=== PATIENT | female | born 1945 | race Caucasian/White ===

== ENCOUNTER 2016-10-06 22:48 | Inpatient (IN) | payer SELFPAY, MEDICAID ==
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
[2016-10-06] MEDS ORDERED: Sodium Chloride 0.9% 1,000 ML IV STA (23:23)
[2016-10-06] MEDS ORDERED: Morphine 2 mg/ml ISec IVP STA (23:23)
[2016-10-06 23:39] LABS: HEMOGLOBIN 11.9 g/dL (12.0-16.0); MEAN CELL VOLUME 78.1 fl (80.0-105.0); MEAN CORPUSCULAR HEMOGLOBIN 25.5 pg (25.0-35.0); MEAN CORPUSCULAR HGB CONC 32.7 g/dl (31.0-37.0); MEAN PLATELET VOLUME 10.9 fl (7.0-11.0); RBC 4.66 10^6/uL (3.5-6.1); RED CELL DISTRIBUTION WIDTH 16.1 % (11.5-14.5); WHITE BLOOD COUNT 11.6 10^3/ul (4.5-11.0)
[2016-10-06 23:52] LABS: ALB/GLOB RATIO 1.3 (1.1-1.8); ALBUMIN 4.9 g/dL (3.0-4.8); ALT/SGPT 574 U/L (7-56); BLOOD UREA NITROGEN 20 mg/dL (7-21); CALCIUM 9.4 mg/dL (8.4-10.5); GFR AFRICAN-AMERICAN > 60; GFR NON-AFRICAN AMERICAN > 60; LIPASE 131 U/L (23-300)
[2016-10-07] LABS: VENOUS BLOOD GAS BASE EXCESS 1.9 mmol/L (0.0-2.0); VENOUS BLOOD GAS PO2 225 mm/Hg (30-55); VENOUS BLOOD PH 7.42 (7.32-7.43)
[2016-10-07 00:02] LABS: AST/SGOT 1083 U/L (15-39)
[2016-10-07 00:10] LABS: PARTIAL THROMBOPLASTIN TIME 25.5 Seconds (23.7-30.8); PROTHROMBIN TIME 10.8 Seconds (9.9-11.8)
[2016-10-07] MEDS ORDERED: cefTRIAXone 1 gm 1 GM/100 ML BAG IV STA (01:39)
[2016-10-07] MEDS ORDERED: metroNIDAZOLE IV 500 mg/100 ml 500 MG/100 ML BAG IVPB STA (01:40)
--- NOTE | 2016-10-07 01:41 | US ---
EXAM: US Abdomen Complete CLINICAL HISTORY: 71 years old, female; Pain; Abdominal pain; Generalized TECHNIQUE: Real-time ultrasound of the abdomen (complete) with image documentation. COMPARISON: CT - ABD PELVIS IV CONTRAST ONLY 04/13/2016 5:39:43 PM FINDINGS: Liver: The liver is increased echogenicity in size measuring 19 cm in longitudinal dimension. No intrahepatic bile duct dilation. Gallbladder: A single large stone is identified within the gallbladder, which is otherwise unremarkable. Common bile duct: The common bile duct is dilated, measuring 1.6 mm. Pancreas: Visualization of the pancreas is limited by overlying bowel gas. Right kidney: Unremarkable in echogenicity and size measuring 10.5 x 4.1 x 5.8 cm. No hydronephrosis. Left Kidney: Unremarkable in size measuring 10.6 x 5.8 x 5.8 cm. No hydronephrosis. A single subcentimeter nonobstructing stone is identified within the lower pole measuring 7 mm. Spleen: Unremarkable in echogenicity and size, measuring 8.7 x 4.7 x 3.8 cm. Aorta: The visualized portion of the abdominal aorta is non-aneurysmal. Inferior vena cava: patent. IMPRESSION: Cholelithiasis. Common bile duct dilatation. Fatty infiltration of an enlarged liver. Nonobstructing subcentimeter stone within the left kidney. Limited evaluation of the pancreas, secondary to overlying bowel gas. Otherwise, unremarkable sonographic evaluation of the abdomen, as detailed above.
--- NOTE | 2016-10-07 02:00 | CT ---
EXAM: CT Abdomen and Pelvis Without Intravenous Contrast CLINICAL HISTORY: 71 years old, female; Pain; Abdominal pain; Generalized TECHNIQUE: Axial computed tomography images of the abdomen and pelvis without intravenous contrast. All CT scans at this facility use one or more dose reduction techniques, viz.: automated exposure control; ma/kV adjustment per patient size (including targeted exams where dose is matched to indication; i.e. head); or iterative reconstruction technique. Coronal and sagittal reformatted images were created and reviewed. COMPARISON: CT - ABD PELVIS IV CONTRAST ONLY 04/13/2016 5:39:43 PM FINDINGS: Lower thorax: The bilateral lung bases are clear. ABDOMEN: Liver: The liver is enlarged, and demonstrates a steatosis. Gallbladder and bile ducts: The gallbladder is mildly distended, without calcified stones. No intrahepatic biliary ductal dilation. Pancreas: Limited evaluation secondary to the lack of intravenous contrast. Spleen: No acute findings. Adrenals: No acute findings. Kidneys and ureters: No obstructing stones. No hydronephrosis. PELVIS: Bladder: No acute findings. Reproductive: No acute findings. Appendix: The appendix is of normal-caliber (series 2, image 113; series 601, image 60). ABDOMEN and PELVIS: Stomach and bowel: No acute findings. A right inguinal fat (and likely omental) containing hernia is detected. Peritoneum: No acute findings. Lymph nodes: Limited evaluation without intravenous contrast. Vasculature: No aortic aneurysm. Bones: No acute fracture. IMPRESSION: A fat and likely omental containing right inguinal hernia is identified, increased in size from previous examination. Nonobstructing left renal calculus. Fatty infiltration of an enlarged liver.
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
[2016-10-07 05:07] LABS: URINE BILIRUBIN NEGATIVE (NEGATIVE); URINE BLOOD SMALL (NEGATIVE); URINE GLUCOSE (UA) NEGATIVE (NEGATIVE); URINE LEUKOCYTE ESTERASE NEGATIVE Leu/uL (NEGATIVE); URINE NITRATE NEGATIVE (NEGATIVE); URINE PROTEIN 100 mg/dL (<30 mg/dL); URINE UROBILINOGEN 0.2 E.U./dL (<1 E.U./dL)
[2016-10-07 05:10] LABS: URINE COLOR YELLOW (YELLOW)
[2016-10-07 05:11] LABS: URINE APPEARANCE SL CLOUDY (CLEAR)
[2016-10-07] MEDS ORDERED: Morphine 2 mg/ml ISec IVP PRN ×2 (05:13→19:20)
[2016-10-07] MEDS ORDERED: Sodium Chloride 0.9% 1,000 ML IV SCH ×3 (05:15→17:30)
[2016-10-07 05:17] LABS: URINE EPITHELIAL CELLS 0 - 2 /hpf (0-5); URINE WBC 0 - 2 /hpf (0-6)
[2016-10-07 05:18] LABS: URINE BACTERIA RARE (NEG)
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
[2016-10-07 05:36] VITALS: BMI 29.9
[2016-10-07] MEDS: Levothyroxine 150 MCG TAB PO SCH (06:47)
[2016-10-07] MEDS ORDERED: HYDROmorphone 1 mg/ml ISec IVP PRN (09:58)
[2016-10-07] MEDS ORDERED: Cefepime (Maxipime) 1 g Inj IVPB SCH (10:00)
[2016-10-07] MEDS: Cefepime IV 2 gm in NS 2 GM/100 ML BAG IVPB SCH ×2 (10:53→21:03)
[2016-10-07] MEDS ORDERED: metroNIDAZOLE IV 500 mg/100 ml 500 MG/100 ML BAG IVPB SCH (11:00)
[2016-10-07 11:35] LABS: ALB/GLOB RATIO 1.2 (1.1-1.8); ALBUMIN 3.9 g/dL (3.0-4.8); ALT/SGPT 504 U/L (7-56); AST/SGOT 592 U/L (15-39); BILIRUBIN,DIRECT 3.8 mg/dL (0.0-0.4); BLOOD UREA NITROGEN 20 mg/dL (7-21); GFR AFRICAN-AMERICAN > 60; GFR NON-AFRICAN AMERICAN > 60
--- NOTE | 2016-10-07 11:56 | RAD ---
HISTORY: Sepsis Patient COMPARISON: 04/13/2016 FINDINGS: LUNGS: No active pulmonary disease. PLEURA: No significant pleural effusion identified, no pneumothorax apparent. CARDIOVASCULAR: Cardiomegaly, pulmonary vascular congestion. OSSEOUS STRUCTURES: No significant abnormalities. VISUALIZED UPPER ABDOMEN: Normal. OTHER FINDINGS: None. IMPRESSION: No active pulmonary disease.
[2016-10-07 12:02] LABS: BASO # 0.02 K/mm3 (0.0-2.0); BASO % 0.2 % (0.0-3.0); EOS % 0.2 % (1.5-5.0); GRAN # 11.44 (1.4-6.5); GRAN % 86.6 % (50.0-68.0); HEMOGLOBIN 11.5 g/dL (12.0-16.0); LYMPH # 0.8 (1.2-3.4); LYMPH % 5.9 % (22.0-35.0); MEAN CELL VOLUME 76.7 fl (80.0-105.0); MEAN CORPUSCULAR HEMOGLOBIN 25.1 pg (25.0-35.0); MEAN CORPUSCULAR HGB CONC 32.7 g/dl (31.0-37.0); MEAN PLATELET VOLUME 11.1 fl (7.0-11.0); MONO # 0.9 (0.1-0.6); MONO % 7.1 % (1.0-6.0); PLATELET COUNT 250 10^3/uL (120.0-450.0); RBC 4.59 10^6/uL (3.5-6.1); RED CELL DISTRIBUTION WIDTH 15.9 % (11.5-14.5); WHITE BLOOD COUNT 13.2 10^3/ul (4.5-11.0)
--- NOTE | 2016-10-07 12:53 | US ---
PROCEDURE: Right lower extremity venous US HISTORY: Leg pain and swelling. Evaluate for DVT. PHYSICIAN(S): Chino Pool M.D. TECHNIQUE: Duplex sonography and color-flow Doppler with graded compression were used to evaluate the deep venous system of the right lower extremity. The tibial veins are not well seen. FINDINGS: The visualized deep venous system of the right lower extremity is sonographically normal and compressible. Normal waveforms and augmentation are seen. There is no sonographic evidence for deep venous thrombosis in the visualized segments of the right lower extremity. IMPRESSION: 1. No sonographic evidence for deep venous thrombosis in the visualized segments of the right lower extremity.
--- NOTE | 2016-10-07 13:54 | CARD ---
APPROVED REPORT EKG Measurement Heart [id number] <Conclusion> Normal sinus rhythm Incomplete right bundle branch block Voltage criteria for left ventricular hypertrophy Nonspecific T wave abnormality Abnormal ECG
[2016-10-07] MEDS ORDERED: Sodium Chloride 0.9% 500 ML IV STA ×3 (15:55→17:16)
[2016-10-07] MEDS ORDERED: Iohexol 240 (50 ml) ONE (16:57)
[2016-10-07] MEDS ORDERED: Indomethacin 50 MG Suppository PR ONE (16:58)
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
[2016-10-07] MEDS ORDERED: Sodium Chloride 0.9% 1,000 ML IV STA (17:04)
[2016-10-07] MEDS ORDERED: Propofol 10 mg/ml Inj (20 ML) ONE (17:21)
[2016-10-07] MEDS ORDERED: Midazolam 2 MG/2 ML VIAL ONE (17:27)
[2016-10-07] MEDS ORDERED: Rocuronium 10 mg/ml (5 ml) ONE (17:30)
[2016-10-07] MEDS ORDERED: Vancomycin 1.5 GM in Sodium Chloride 0.9% 500 ML IVPB ONE (17:57)
[2016-10-07] MEDS ORDERED: Phenylephrine 10 mg/ml Inj ONE (18:01)
[2016-10-07] MEDS ORDERED: Glycopyrrolate 0.2 mg/ml (2ml vial) ONE (18:02)
[2016-10-07] MEDS ORDERED: Neostigmine Methylsulfate 3mg/3ml Syringe IV ONE (18:02)
[2016-10-07] MEDS ORDERED: Glucagon Recombinant 1 mg Inj ONE (18:09)
[2016-10-07] MEDS: Piperacillin/Tazobact 3.375 gm 100 ML IVPB SCH (18:30)
--- NOTE | 2016-10-07 22:11 | CON ---
DATE: 10/07/2016 REQUESTING PHYSICIAN: Dr. Kelsey. REASON FOR CONSULT/HISTORY OF PRESENT ILLNESS: I have been asked to see this 71-year-old female, who comes to the hospital with a one-day history of abdominal pain, nausea, and vomiting. In the emergency room, the patient had a fever to 103. Routine blood work showed elevated liver enzymes. Ultrasound of the gallbladder showed one large gallstone with a dilated duct measuring 1.[address] scan of the abdomen and pelvis was negative. PAST MEDICAL HISTORY: Notable for hypertension, thyroid cancer, thyroid and parathyroid removal, bradycardia, gallstones. The patient was diagnosed with gallstones over a year ago, but opted not to have surgery at that time. SOCIAL HISTORY: She denies cigarette smoke or alcohol use. PAST SURGICAL HISTORY: Notable for right knee surgery, left knee surgery, back surgery, thyroidectomy, parathyroidectomy, and left ear surgery. FAMILY HISTORY: Noncontributory. REVIEW OF SYSTEMS: A 14-point review of systems is notable for nausea, vomiting, abdominal pain, and fever. PHYSICAL EXAMINATION: GENERAL: Elderly female lying in bed in some distress from right upper quadrant abdominal pain. VITAL SIGNS: Reveal temperature of 99.8, blood pressure 120/95, heart rate of 89. HEENT: Reveal sclerae to be icteric. Conjunctivae pink. NECK: Supple. CHEST: Reveal lungs to be clear. HEART: Exam reveals regular rate and rhythm. ABDOMEN: Soft. She has moderate right upper quadrant tenderness with some voluntary guarding. No rebound. No guarding. EXTREMITIES: Show no edema. LABORATORY DATA: Reveal potassium 3.3, total bilirubin 4.9, AST 592, ALT 504. On admission, her AST was 1083, alkaline phosphatase of 349, total bilirubin of 4.9. IMPRESSION: A 71-year-old female with abdominal pain, gallstones, probable common bile duct stone with fever. The patient may have ascending cholangitis. RECOMMENDATIONS: 1. I will start the patient on Zosyn 3.275 g IV q. 6 hours. 2. We will request for an MRCP. 3. We will ask Dr. López to see the patient for possible ERCP. Christopher Howard MD
[2016-10-08] MEDS: Piperacillin/Tazobact 3.375 gm 100 ML IVPB SCH ×4 (00:46→21:10)
[2016-10-08] MEDS: Levothyroxine 150 MCG TAB PO SCH (05:39)
--- NOTE | 2016-10-08 05:50 | CON ---
CALCINER OPERATOR NOTE DATE: 10/07/2016 REQUESTING PHYSICIAN: Edison Celaya MD CHIEF COMPLAINTS: The patient presents with severe abdominal pain and cholecystitis. HISTORY OF PRESENT ILLNESS: Ms. Real Keyes is a 71-year-old obese female with a history of hypertension, thyroid cancer, status post thyroidectomy and parathyroidectomy, bradycardia, osteoarthritis, hypertension, gall stones and GERD. The patient initially was admitted to the medical floor and then had episodes of severe abdominal pain and hypotension and was transferred to the intensive care unit. IV fluids were given as bolus and BP stabilized. The patient has been evaluated by GI surgery as well as ID and is on antibiotics and pain meds. She is seen and evaluated for ERCP today. The patient is awake and alert, does complain of severe right upper quadrant pain when the pain meds wear off. No present nauseousness or vomiting. No fever or chills. No diarrhea. PAST MEDICAL HISTORY: Is as above. ALLERGIES: SHE HAS NO KNOWN ALLERGIES. CURRENT MEDICATIONS: Her current medications could be evaluated as per the nurse's intake form. FAMILY HISTORY: Noncontributory. SOCIAL HISTORY: No history of smoking or ETOH abuse. REVIEW OF SYSTEMS: CONSTITUTIONAL: All negative. HEENT: All negative. RESPIRATORY: All negative. CARDIOVASCULAR: All negative. GASTROINTESTINAL: Note that the patient has a history of gall stones coming with acute abdominal pain, could be cholangitis or cholelithiasis. : All negative. MUSCULOSKELETAL: All negative. NEUROPSYCHIATRIC: All negative. HEMATOLOGICAL: All negative. IMMUNOLOGIC: All negative. ENDOCRINE: The patient has a history of thyroid cancer and parathyroid as well as thyroidectomy. INTEGRITY: All negative. PHYSICAL EXAMINATION: VITAL SIGNS: Note that her temperature was 98.2, her pulse is 91, respirations are 20, BP is 115/45 and O2 sat is 100% on room air. HEENT: Head is atraumatic and normocephalic. Eyes, reactive to light. Ears, nose, and throat seemed to be within normal limits. NECK: Supple. No JVD. No thyroid enlargement. No lymph nodes. HEART: Has regular rate, and rhythm. Normal S1 and S2. LUNGS: Revealed some mild decreased breath sounds at the bases. ABDOMEN: Obese. Tender to palpation. Decreased bowel sounds. GENITALIA AND RECTAL: Deferred. MUSCULOSKELETAL: No joint deformities. EXTREMITIES: Reveal trace lower extremity edema. NEUROLOGIC: She seemed to be grossly intact. LABORATORY DATA: Her white count is 13.2, hemoglobin is 11.5, hematocrit 35.2 with platelets of 250,000. Venous blood gas reveals a pH of 7.45, PCO2 of 41, PO2 of 225. Sodium is 139, potassium 3.3, chloride 102, CO2 of 23 with a BUN of 20, creatinine of 0.9 and glucose of 115. The patient's direct bilirubin is 3.8, total bilirubin of 4.9 and her AST is 592, ALT is 504 and alkaline phosphatase is 349. Chest x-ray reveals no active pulmonary disease. CT scan of the abdomen reveals a right inguinal hernia, non-obstructing left renal calculus, fatty infiltrates of an enlarged liver. IMPRESSION: This patient has possible cholangitis and cholecystitis. She has possible sepsis with hypotension and possible volume depletion. The patient has a history of parathyroid carcinoma and status post thyroidectomy and parathyroidectomy, osteoarthritis, hypertension, history of gall stones, bradycardia and is known to have gastroesophageal reflux disease. PLAN: We will continue with pain meds. The patient is getting an emergency endoscopic retrograde cholangiopancreatography. We will continue with her BP meds. We will monitor blood pressure closely and hold if hypotensive. The patient will continue with the metronidazole, her cefepime and will continue with her Synthroid. We will continue with IV fluids.. We will follow closely in the intensive care unit monitoring her vitals and will continue to treat aggressively along with the other consultants and the primary care doctor. Hill Odell MD
[2016-10-08 06:04] LABS: BASO # 0.01 K/mm3 (0.0-2.0); BASO % 0.1 % (0.0-3.0); EOS % 0.1 % (1.5-5.0); GRAN # 12.19 (1.4-6.5); GRAN % 84.4 % (50.0-68.0); LYMPH % 7.1 % (22.0-35.0); MEAN CORPUSCULAR HEMOGLOBIN 25.1 pg (25.0-35.0); MEAN CORPUSCULAR HGB CONC 32.1 g/dl (31.0-37.0); MEAN PLATELET VOLUME 10.9 fl (7.0-11.0); MONO # 1.2 (0.1-0.6); MONO % 8.3 % (1.0-6.0); PLATELET COUNT 187 10^3/uL (120.0-450.0); RBC 3.59 10^6/uL (3.5-6.1); RED CELL DISTRIBUTION WIDTH 16.5 % (11.5-14.5); WHITE BLOOD COUNT 14.4 10^3/ul (4.5-11.0)
[2016-10-08] MEDS ORDERED: Morphine 4 mg/ml ISec IVP PRN (06:22)
[2016-10-08] MEDS ORDERED: Morphine 2 mg/ml ISec IVP PRN (06:22)
[2016-10-08 07:37] LABS: ALB/GLOB RATIO 1.1 (1.1-1.8); ALBUMIN 3.2 g/dL (3.0-4.8)
--- NOTE | 2016-10-08 07:37 | CP.PCM.PN ---
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 Admits to ongoing upper abdominal pain. Nursing denies acute events overnight. Limited 12-point review of systems due to hearing impairment. Objective - Vital Signs/Intake and Output Vital Signs (last 24 hours): Temp Pulse Resp BP Pulse Ox 98.2 F 84 14 112/58 L 97 10/07/16 16:07 10/08/16 05:10 10/08/16 05:10 10/08/16 02:00 10/08/16 05:10 Intake and Output: 10/08/16 10/08/16 06:59 18:59 Intake Total 2200 Balance 2200 - Medications Medications: Current Medications Docusate Sodium (Colace) 100 mg PO DAILY [facility] Last Admin: 10/07/16 10:54 Dose: 100 mg Furosemide (Lasix) 40 mg PO DAILY [facility] Last Admin: 10/07/16 10:55 Dose: 40 mg Gabapentin (Neurontin) 100 mg PO HS NORM PRN Reason: Protocol Last Admin: 10/07/16 21:14 Dose: Not Given Heparin Sodium (Porcine) (Heparin) 5,000 units SC Q12 NORM PRN Reason: Protocol Last Admin: 10/07/16 21:46 Dose: 5,000 units Hydralazine HCl (Apresoline) 25 mg PO TID [facility] Last Admin: 10/07/16 17:27 Dose: Not Given Cefepime HCl (Maxipime 2gm) 2 gm in 100 mls @ 100 mls/hr IVPB Q12 NORM Stop: 10/12/16 10:01 Last Admin: 10/07/16 21:03 Dose: 100 mls/hr Piperacillin Sod/Tazobactam Sod (Zosyn 3.375 In Ns 100ml) 100 mls @ 200 mls/hr IVPB Q6 NORM PRN Reason: Protocol Stop: 10/14/16 18:01 Last Admin: 10/08/16 05:36 Dose: 200 mls/hr Sodium Chloride (Sodium Chloride 0.9%) 1,000 mls @ 100 mls/hr IV .Q10H [facility] Last Admin: 10/07/16 16:07 Dose: 100 mls/hr Sodium Chloride (Sodium Chloride 0.9%) 1,000 mls @ 100 mls/hr IV .Q10H [facility] Last Admin: 10/07/16 22:40 Dose: 100 mls/hr Acetaminophen (Ofirmev) 1,000 mg in 100 mls @ 400 mls/hr IVPB Q6H PRN PRN Reason: Pain, moderate (4-7) Stop: 10/09/16 19:05 Last Admin: 10/07/16 21:49 Dose: 400 mls/hr Levothyroxine Sodium (Synthroid) 300 mcg PO 0600 [facility] Last Admin: 10/08/16 05:39 Dose: Not Given Lisinopril (Zestril) 10 mg PO DAILY [facility] Last Admin: 10/07/16 10:55 Dose: 10 mg Morphine Sulfate (Morphine) 2 mg IVP Q4H PRN PRN Reason: Pain, moderate (4-7) Morphine Sulfate (Morphine) 4 mg IVP Q4H PRN PRN Reason: Pain, severe (8-10) Ondansetron HCl (Zofran Inj) 4 mg IVP Q6H PRN PRN Reason: Nausea/Vomiting Pantoprazole Sodium (Protonix Inj) 40 mg IVP DAILY [facility] Last Admin: 10/07/16 10:54 Dose: 40 mg - Labs Labs: 10/08/16 05:10 10/07/16 11:10 PT 10.8 Seconds (9.9-11.8) 10/06/16 23:30 INR 1.00 (0.93-1.08) 10/06/16 23:30 APTT 30.1 Seconds (23.7-30.8) 10/08/16 05:10 - Constitutional Appears: Non-toxic, No Acute Distress - Head Exam Head Exam: ATRAUMATIC, NORMOCEPHALIC - Eye Exam Eye Exam: EOMI, PERRL Pupil Exam: PERRL. absent: Miosis, Mydriatic - ENT Exam ENT Exam: Mucous Membranes Moist, Normal Oropharynx - Neck Exam Neck Exam: Full ROM, Normal Inspection - Respiratory Exam Respiratory Exam: Clear to Ausculation Bilateral. absent: Rales, Rhonchi, Wheezes - Cardiovascular Exam Cardiovascular Exam: RRR, +S1, +S2. absent: Gallop, Rubs - GI/Abdominal Exam GI & Abdominal Exam: Soft, Tenderness, Normal Bowel Sounds. absent: Distended, Firm, Guarding, Rigid, Organomegaly, Rebound Additional comments: B/L UQ tenderness to palpation - Extremities Exam Extremities Exam: Normal Inspection, Pedal Edema - Neurological Exam Neurological Exam: Alert, Awake - Psychiatric Exam Psychiatric exam: Normal Affect, Normal Mood - Skin Skin Exam: Dry, Intact, Normal Color, Warm Assessment and Plan - Assessment and Plan (Free Text) Assessment: 71 year old female with history of Hypertension thyroid cancer s/p thyroidectomy /parathyroidectomy with resultant bradycardia on thyroid hormone replacement presenting with abdominal pain, vomiting, and weakness. Active treatment of ascending cholangitis 2/2 cholelithiasis complicated by choledocholithiasis POD1 (10/07/16) emergent ERCP with stone extraction, sphincterotomy, and balloon sweep. Unknown prior endoscopic history. Plan: >continue broad spectrum antibiotics -dual coeerage with cefepime and Zosyn not necessary >blood cultures- no growth to date >monitor LFTs >NPO >surgery managing- follow up recommendations >downtrend of H/H likely hemodilutional, will monitor >supportive care: IVFs, pain control, anti-emetics >will follow clinical course <Aidan Pitt - Last Filed: 10/08/16 09:55> Objective - Vital Signs/Intake and Output Vital Signs (last 24 hours): Temp Pulse Resp BP Pulse Ox 98.2 F 84 14 112/58 L 97 10/07/16 16:07 10/08/16 05:10 10/08/16 05:10 10/08/16 02:00 10/08/16 05:10 Intake and Output: 10/08/16 10/08/16 06:59 18:59 Intake Total 2200 Balance 2200 - Medications Medications: Current Medications Docusate Sodium (Colace) 100 mg PO DAILY [facility] Last Admin: 10/07/16 10:54 Dose: 100 mg Furosemide (Lasix) 40 mg PO DAILY [facility] Last Admin: 10/07/16 10:55 Dose: 40 mg Gabapentin (Neurontin) 100 mg PO HS NORM PRN Reason: Protocol Last Admin: 10/07/16 21:14 Dose: Not Given Heparin Sodium (Porcine) (Heparin) 5,000 units SC Q12 NORM PRN Reason: Protocol Last Admin: 10/07/16 21:46 Dose: 5,000 units Hydralazine HCl (Apresoline) 25 mg PO TID [facility] Last Admin: 10/07/16 17:27 Dose: Not Given Piperacillin Sod/Tazobactam Sod (Zosyn 3.375 In Ns 100ml) 100 mls @ 200 mls/hr IVPB Q6 [facility] PRN Reason: Protocol Stop: 10/14/16 18:01 Last Admin: 10/08/16 05:36 Dose: 200 mls/hr Sodium Chloride (Sodium Chloride 0.9%) 1,000 mls @ 100 mls/hr IV .Q10H [facility] Last Admin: 10/07/16 16:07 Dose: 100 mls/hr Sodium Chloride (Sodium Chloride 0.9%) 1,000 mls @ 100 mls/hr IV .Q10H [facility] Last Admin: 10/07/16 22:40 Dose: 100 mls/hr Acetaminophen (Ofirmev) 1,000 mg in 100 mls @ 400 mls/hr IVPB Q6H PRN PRN Reason: Pain, moderate (4-7) Stop: 10/09/16 19:05 Last Admin: 10/07/16 21:49 Dose: 400 mls/hr Levothyroxine Sodium (Synthroid) 300 mcg PO 0600 [facility] Last Admin: 10/08/16 05:39 Dose: Not Given Lisinopril (Zestril) 10 mg PO DAILY [facility] Last Admin: 10/07/16 10:55 Dose: 10 mg Morphine Sulfate (Morphine) 2 mg IVP Q4H PRN PRN Reason: Pain, moderate (4-7) Morphine Sulfate (Morphine) 4 mg IVP Q4H PRN PRN Reason: Pain, severe (8-10) Ondansetron HCl (Zofran Inj) 4 mg IVP Q6H PRN PRN Reason: Nausea/Vomiting Pantoprazole Sodium (Protonix Inj) 40 mg IVP DAILY [facility] Last Admin: 10/07/16 10:54 Dose: 40 mg - Labs Labs: 10/08/16 05:10 10/08/16 05:10 PT 10.8 Seconds (9.9-11.8) 10/06/16 23:30 INR 1.00 (0.93-1.08) 10/06/16 23:30 APTT 30.1 Seconds (23.7-30.8) 10/08/16 05:10 Attending/Attestation - Attestation I have personally seen and examined this patient.: Yes I have fully participated in the care of the patient.: Yes I have reviewed all pertinent clinical information, including history, physical exam and plan: Yes Notes (Text): 10/08/16 09:51 I have seen and examined patient with GI fellow. No acute events overnight. She still continues to endorse generalized abdominal discomfort, worse in RUQ. There is no reported nausea, vomiting, fever/chills. She remains NPO, s/p ERCP yesterday with stone extraction and sphincterotomy. Review of vitals from today are normal. Obesity HTN History of thyroid cancer Abdominal pain, sepsis - ascending cholangitis s/p ERCP with stone extraction and sphincterotomy. Balloon sweep performed without evidence of additional choledocholithiasis. - NPO - Continue with antibiotic therapy, follow up blood culture results - Pain control - Follow up surgical recommendations regarding timing of cholecystectomy - LFTs trending down, continue to monitor - No further advanced endoscopic intervention planned, will sign off case. Further management as per primary GI physician (Dr. Howard).
[2016-10-08 07:39] LABS: CALCIUM 6.9 mg/dL (8.4-10.5)
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
[2016-10-08] MEDS ORDERED: Sodium Chloride 0.9% 1,000 ML IV STA (10:47)
[2016-10-08] MEDS: Sodium Chloride 0.9% 1,000 ML IV SCH ×2 (12:17→22:24)
--- NOTE | 2016-10-08 12:48 | CP.PCM.PN ---
<Lashon,Pattie - Last Filed: 10/08/16 14:55> Subjective - Date & Time of Evaluation Date of Evaluation: 10/08/16 Time of Evaluation: 12:43 - Subjective Subjective: Progress Note for Dr. Licona Patient is Maltese speaking only. Patient had no urine output overnight. Patient' s BUN/Cr 35/2.3 in the AM. Fluids increased from 75cc/hr to 100cc/hr. Patient UOP after 3 hours is 975cc Urine. Bladder scan unnecessary at this time. Patient 's CMP was ordered to be redrawn for 14:00. Will follow. FENa calculations to follow Urine Electrolyte readings. Patient admits to abdominal pain throughout her whole abdomen with the worst pain in RUQ. Patient did not have her hearing aid on this morning and had recently lost her other hearing aid. Patient placed her one remaining hearing aid in the biohazard bag along with the rest of her jewelry. Daughter was not at bedside today. Objective - Vital Signs/Intake and Output Vital Signs (last 24 hours): Temp Pulse Resp BP Pulse Ox 98.2 F 82 14 130/66 97 10/07/16 16:07 10/08/16 10:05 10/08/16 05:10 10/08/16 10:05 10/08/16 05:10 Intake and Output: 10/08/16 10/08/16 06:59 18:59 Intake Total 2200 Balance 2200 - Medications Medications: Current Medications Calcium/Vitamin D (Oscal-D 250 Mg-125 Units Tab) 1 tab PO DAILY [facility] Docusate Sodium (Colace) 100 mg PO DAILY [facility] Last Admin: 10/08/16 10:05 Dose: 100 mg Furosemide (Lasix) 40 mg PO DAILY [facility] Last Admin: 10/08/16 10:05 Dose: 40 mg Gabapentin (Neurontin) 100 mg PO HS [facility] PRN Reason: Protocol Last Admin: 10/07/16 21:14 Dose: Not Given Heparin Sodium (Porcine) (Heparin) 5,000 units SC Q12 [facility] PRN Reason: Protocol Last Admin: 10/08/16 09:59 Dose: 5,000 units Hydralazine HCl (Apresoline) 25 mg PO TID [facility] Last Admin: 10/08/16 10:18 Dose: Not Given Piperacillin Sod/Tazobactam Sod (Zosyn 3.375 In Ns 100ml) 100 mls @ 200 mls/hr IVPB Q6 [facility] PRN Reason: Protocol Stop: 10/14/16 18:01 Last Admin: 10/08/16 12:19 Dose: 200 mls/hr Acetaminophen (Ofirmev) 1,000 mg in 100 mls @ 400 mls/hr IVPB Q6H PRN PRN Reason: Pain, moderate (4-7) Stop: 10/09/16 19:05 Last Admin: 10/07/16 21:49 Dose: 400 mls/hr Sodium Chloride (Sodium Chloride 0.9%) 1,000 mls @ 150 mls/hr IV .Q6H40M [facility] Last Admin: 10/08/16 12:17 Dose: 150 mls/hr Levothyroxine Sodium (Synthroid) 300 mcg PO 0600 [facility] Last Admin: 10/08/16 05:39 Dose: Not Given Lisinopril (Zestril) 10 mg PO DAILY [facility] Last Admin: 10/08/16 10:05 Dose: 10 mg Morphine Sulfate (Morphine) 2 mg IVP Q4H PRN PRN Reason: Pain, moderate (4-7) Morphine Sulfate (Morphine) 4 mg IVP Q4H PRN PRN Reason: Pain, severe (8-10) Ondansetron HCl (Zofran Inj) 4 mg IVP Q6H PRN PRN Reason: Nausea/Vomiting Pantoprazole Sodium (Protonix Inj) 40 mg IVP DAILY [facility] Last Admin: 10/08/16 09:59 Dose: 40 mg - Labs Labs: 10/08/16 05:10 10/08/16 05:10 PT 10.8 Seconds (9.9-11.8) 10/06/16 23:30 INR 1.00 (0.93-1.08) 10/06/16 23:30 APTT 30.1 Seconds (23.7-30.8) 10/08/16 05:10 - Constitutional Appears: No Acute Distress - Head Exam Head Exam: NORMAL INSPECTION - Eye Exam Eye Exam: EOMI, Normal appearance Pupil Exam: NORMAL ACCOMODATION - ENT Exam ENT Exam: Mucous Membranes Moist - Neck Exam Neck Exam: Full ROM. absent: Tenderness - Respiratory Exam Respiratory Exam: Clear to Ausculation Bilateral, NORMAL BREATHING PATTERN - Cardiovascular Exam Cardiovascular Exam: REGULAR RHYTHM - GI/Abdominal Exam GI & Abdominal Exam: Soft, Normal Bowel Sounds. absent: Tenderness, Organomegaly - Extremities Exam Extremities Exam: Full ROM, Normal Inspection - Neurological Exam Neurological Exam: Alert, Awake, Normal Gait - Skin Skin Exam: Dry, Intact, Normal Color Assessment and Plan - Assessment and Plan (Free Text) Assessment: 71 F ascending cholangitis, choledocholithiasis. PMH HTN, OA, bradycardia, thyroid cancer s/p thyroidectomy/parathyroidectomy. Plan: 1) Abdominal pain with nausea and bilious emesis -cholecystitis vs choledocolithiasis vs cholangitis vs enteritis Diet: NPO -Febrile in ED, Tmax 103.8F, febrile temp persisting despite 1x 650mg PO tylenol , 800mg PO Motrin x1 given in ED -Mild leukocytosis of 11.6 -LFTs elevated; TBili 4.9, AST/ALT 224/288, ALP 216 -Abx coverage with cefepime and flagyl -Pain control with Morphine 2nq4 PRN, Zofran prn for nausea/emesis -Surgery consulted, recs consulting GI for possible ERCP, possible cholecystectomy later -GI consulted, appreciate all recs IVF changed from 75 cc to 100 cc Poor Urine production F/u Bladder scan, if inadequate urine production, boyle insertion. Strict I/Os f/u repeat CMP at 14:00 BUN/Cr 35/2.3 Zosyn administration changed from Q6 to Q8. Ascending cholangitis s/p ERCP day 1 cholecystectomy scheduled for tuesday 10/10 2) Thyroid Ca s/p thyroidectomy -continue synthroid 3) HTN -continue home Lasix, Hydralazine, and Lisinopril Dispo: Med Surg, pending GI input, possible ERCP/possible cholecystectomy FEN: NPO, NS 125cc/hr Access: Peripheral IV Consults: GI, Surgery Ppx: SCDs for DVT, Protonix for GI Patient reviewed and discussed with attending, Dr. Kaminski <Christiana Licona - Last Filed: 10/08/16 17:06> Objective - Vital Signs/Intake and Output Vital Signs (last 24 hours): Temp Pulse Resp BP Pulse Ox 98.2 F 91 H 22 149/78 100 10/07/16 16:07 10/08/16 15:10 10/08/16 15:10 10/08/16 15:00 10/08/16 15:10 Intake and Output: 10/08/16 10/08/16 06:59 18:59 Intake Total 2200 Balance 2200 - Medications Medications: Current Medications Calcium/Vitamin D (Oscal-D 250 Mg-125 Units Tab) 1 tab PO DAILY [facility] Last Admin: 10/08/16 13:19 Dose: Not Given Docusate Sodium (Colace) 100 mg PO DAILY [facility] Last Admin: 10/08/16 10:05 Dose: 100 mg Furosemide (Lasix) 40 mg PO DAILY [facility] Last Admin: 10/08/16 10:05 Dose: 40 mg Gabapentin (Neurontin) 100 mg PO HS [facility] PRN Reason: Protocol Last Admin: 10/07/16 21:14 Dose: Not Given Heparin Sodium (Porcine) (Heparin) 5,000 units SC Q12 [facility] PRN Reason: Protocol Last Admin: 10/08/16 09:59 Dose: 5,000 units Hydralazine HCl (Apresoline) 25 mg PO TID [facility] Last Admin: 10/08/16 13:21 Dose: 25 mg Acetaminophen (Ofirmev) 1,000 mg in 100 mls @ 400 mls/hr IVPB Q6H PRN PRN Reason: Pain, moderate (4-7) Stop: 10/09/16 19:05 Last Admin: 10/07/16 21:49 Dose: 400 mls/hr Sodium Chloride (Sodium Chloride 0.9%) 1,000 mls @ 150 mls/hr IV .Q6H40M [facility] Last Admin: 10/08/16 12:17 Dose: 150 mls/hr Piperacillin Sod/Tazobactam Sod (Zosyn 3.375 In Ns 100ml) 100 mls @ 200 mls/hr IVPB Q8 [facility] PRN Reason: Protocol Stop: 10/15/16 22:01 Levothyroxine Sodium (Synthroid) 300 mcg PO 0600 [facility] Last Admin: 10/08/16 05:39 Dose: Not Given Lisinopril (Zestril) 10 mg PO DAILY [facility] Last Admin: 10/08/16 10:05 Dose: 10 mg Morphine Sulfate (Morphine) 2 mg IVP Q4H PRN PRN Reason: Pain, moderate (4-7) Last Admin: 10/08/16 13:15 Dose: 2 mg Morphine Sulfate (Morphine) 4 mg IVP Q4H PRN PRN Reason: Pain, severe (8-10) Ondansetron HCl (Zofran Inj) 4 mg IVP Q6H PRN PRN Reason: Nausea/Vomiting Pantoprazole Sodium (Protonix Inj) 40 mg IVP DAILY [facility] Last Admin: 10/08/16 09:59 Dose: 40 mg - Labs Labs: 10/08/16 05:10 10/08/16 05:10 PT 10.8 Seconds (9.9-11.8) 10/06/16 23:30 INR 1.00 (0.93-1.08) 10/06/16 23:30 APTT 30.1 Seconds (23.7-30.8) 10/08/16 05:10 Attending/Attestation - Attestation I have personally seen and examined this patient.: Yes I have fully participated in the care of the patient.: Yes I have reviewed all pertinent clinical information, including history, physical exam and plan: Yes Notes (Text): 10/08/16 17:03 attending note; Patient seen and examined with resident. Patient is a 71-year-old Maltese speaking female admitted with abdominal pain. Found to have acute cholangitis. Status post ERCP stone removal with sphincterotomy. LFTs improving. continue IV zosyn. acute renal failure; secondary to episodes of hypotension. IV fluids increased. Urine output should be monitored closely. Repeat labs today. possible lap cholecystectomy on Saturday as per surgery. 10/08/16 17:06
[2016-10-08] MEDS: Calcium-Vit D 250 mg-125 Units Tab UD PO SCH (13:19)
--- NOTE | 2016-10-08 13:20 | CP.PCM.PN ---
Subjective - Date & Time of Evaluation Date of Evaluation: 10/08/16 Time of Evaluation: 07:00 - Subjective Subjective: Patient is a 71 year old female admitted to [facility] ED 10/06/16 found to have acute cholangitis s/p ERCP with stone extraction and sphincterectomy seen and examined at bedside today. Patient was alert awake and oriented x3. Patient admits to abdominal pain which has improved since being admitted. Objective - Vital Signs/Intake and Output Vital Signs (last 24 hours): Temp Pulse Resp BP Pulse Ox 98.2 F 82 14 130/66 97 10/07/16 16:07 10/08/16 10:05 10/08/16 05:10 10/08/16 10:05 10/08/16 05:10 Intake and Output: 10/08/16 10/08/16 06:59 18:59 Intake Total 2200 Balance 2200 - Medications Medications: Current Medications Calcium/Vitamin D (Oscal-D 250 Mg-125 Units Tab) 1 tab PO DAILY [facility] Docusate Sodium (Colace) 100 mg PO DAILY [facility] Last Admin: 10/08/16 10:05 Dose: 100 mg Furosemide (Lasix) 40 mg PO DAILY [facility] Last Admin: 10/08/16 10:05 Dose: 40 mg Gabapentin (Neurontin) 100 mg PO HS [facility] PRN Reason: Protocol Last Admin: 10/07/16 21:14 Dose: Not Given Heparin Sodium (Porcine) (Heparin) 5,000 units SC Q12 [facility] PRN Reason: Protocol Last Admin: 10/08/16 09:59 Dose: 5,000 units Hydralazine HCl (Apresoline) 25 mg PO TID [facility] Last Admin: 10/08/16 10:18 Dose: Not Given Piperacillin Sod/Tazobactam Sod (Zosyn 3.375 In Ns 100ml) 100 mls @ 200 mls/hr IVPB Q6 [facility] PRN Reason: Protocol Stop: 10/14/16 18:01 Last Admin: 10/08/16 12:19 Dose: 200 mls/hr Acetaminophen (Ofirmev) 1,000 mg in 100 mls @ 400 mls/hr IVPB Q6H PRN PRN Reason: Pain, moderate (4-7) Stop: 10/09/16 19:05 Last Admin: 10/07/16 21:49 Dose: 400 mls/hr Sodium Chloride (Sodium Chloride 0.9%) 1,000 mls @ 150 mls/hr IV .Q6H40M [facility] Last Admin: 10/08/16 12:17 Dose: 150 mls/hr Levothyroxine Sodium (Synthroid) 300 mcg PO 0600 [facility] Last Admin: 10/08/16 05:39 Dose: Not Given Lisinopril (Zestril) 10 mg PO DAILY [facility] Last Admin: 10/08/16 10:05 Dose: 10 mg Morphine Sulfate (Morphine) 2 mg IVP Q4H PRN PRN Reason: Pain, moderate (4-7) Morphine Sulfate (Morphine) 4 mg IVP Q4H PRN PRN Reason: Pain, severe (8-10) Ondansetron HCl (Zofran Inj) 4 mg IVP Q6H PRN PRN Reason: Nausea/Vomiting Pantoprazole Sodium (Protonix Inj) 40 mg IVP DAILY [facility] Last Admin: 10/08/16 09:59 Dose: 40 mg - Labs Labs: 10/08/16 05:10 10/08/16 05:10 PT 10.8 Seconds (9.9-11.8) 10/06/16 23:30 INR 1.00 (0.93-1.08) 10/06/16 23:30 APTT 30.1 Seconds (23.7-30.8) 10/08/16 05:10 - Constitutional Appears: Well - Head Exam Head Exam: ATRAUMATIC, NORMAL INSPECTION, NORMOCEPHALIC - ENT Exam ENT Exam: Mucous Membranes Moist, Normal Exam - Respiratory Exam Respiratory Exam: Clear to Ausculation Bilateral, NORMAL BREATHING PATTERN - Cardiovascular Exam Cardiovascular Exam: REGULAR RHYTHM, RRR, +S1, +S2 - GI/Abdominal Exam GI & Abdominal Exam: Tenderness. absent: Firm, Guarding, Rigid - Skin Skin Exam: Normal Color, Warm Assessment and Plan - Assessment and Plan (Free Text) Plan: 1. Patient is a 71 year old female admitted to [facility] ED 10/06/16 found to have acute cholangitis s/p ERCP with stone extraction and sphincterectomy - WBC currently 14.4, ID on board; abx regimen currently includes Zosyn day 2; ID awaiting blood cx - Liver enzymes downtrending; T bili currently 4.9, AST down to 224 from 1083, ALT down to 288 from 574, AP down to 216 from 367 - Will continue to monitor LFTs, Lap cholecystectomy scheduled for Saturday pending continued downtrend of LFTs
--- NOTE | 2016-10-08 14:42 | CP.PCM.PN ---
<Cortez Bergman - Last Filed: 10/08/16 14:38> Subjective - Date & Time of Evaluation Date of Evaluation: 10/08/16 Time of Evaluation: 09:00 - Subjective Subjective: ICU Progress Note Pt was seen and examined at bedside. Pt is Latvian speaking. Pt admitted to abdominal pains exacerbated by palpation, however less so than she experienced yesterday. Pt is s/p ERCP with stone extraction and sphincterectomy. As per nursing staff, pt has not had much urine output overnight. Pt was bolused with IVF and pt had approx 1L uop throughout the day today. Objective - Vital Signs/Intake and Output Vital Signs (last 24 hours): Temp Pulse Resp BP Pulse Ox 98.2 F 80 19 145/80 99 10/07/16 16:07 10/08/16 13:30 10/08/16 13:30 10/08/16 13:21 10/08/16 13:30 Intake and Output: 10/08/16 10/08/16 06:59 18:59 Intake Total 2200 Balance 2200 - Medications Medications: Current Medications Calcium/Vitamin D (Oscal-D 250 Mg-125 Units Tab) 1 tab PO DAILY [facility] Last Admin: 10/08/16 13:19 Dose: Not Given Docusate Sodium (Colace) 100 mg PO DAILY [facility] Last Admin: 10/08/16 10:05 Dose: 100 mg Furosemide (Lasix) 40 mg PO DAILY [facility] Last Admin: 10/08/16 10:05 Dose: 40 mg Gabapentin (Neurontin) 100 mg PO HS [facility] PRN Reason: Protocol Last Admin: 10/07/16 21:14 Dose: Not Given Heparin Sodium (Porcine) (Heparin) 5,000 units SC Q12 [facility] PRN Reason: Protocol Last Admin: 10/08/16 09:59 Dose: 5,000 units Hydralazine HCl (Apresoline) 25 mg PO TID [facility] Last Admin: 10/08/16 13:21 Dose: 25 mg Acetaminophen (Ofirmev) 1,000 mg in 100 mls @ 400 mls/hr IVPB Q6H PRN PRN Reason: Pain, moderate (4-7) Stop: 10/09/16 19:05 Last Admin: 10/07/16 21:49 Dose: 400 mls/hr Sodium Chloride (Sodium Chloride 0.9%) 1,000 mls @ 150 mls/hr IV .Q6H40M [facility] Last Admin: 10/08/16 12:17 Dose: 150 mls/hr Piperacillin Sod/Tazobactam Sod (Zosyn 3.375 In Ns 100ml) 100 mls @ 200 mls/hr IVPB Q8 [facility] PRN Reason: Protocol Stop: 10/15/16 22:01 Levothyroxine Sodium (Synthroid) 300 mcg PO 0600 [facility] Last Admin: 10/08/16 05:39 Dose: Not Given Lisinopril (Zestril) 10 mg PO DAILY [facility] Last Admin: 10/08/16 10:05 Dose: 10 mg Morphine Sulfate (Morphine) 2 mg IVP Q4H PRN PRN Reason: Pain, moderate (4-7) Last Admin: 10/08/16 13:15 Dose: 2 mg Morphine Sulfate (Morphine) 4 mg IVP Q4H PRN PRN Reason: Pain, severe (8-10) Ondansetron HCl (Zofran Inj) 4 mg IVP Q6H PRN PRN Reason: Nausea/Vomiting Pantoprazole Sodium (Protonix Inj) 40 mg IVP DAILY [facility] Last Admin: 10/08/16 09:59 Dose: 40 mg - Labs Labs: 10/08/16 05:10 10/08/16 05:10 PT 10.8 Seconds (9.9-11.8) 10/06/16 23:30 INR 1.00 (0.93-1.08) 10/06/16 23:30 APTT 30.1 Seconds (23.7-30.8) 10/08/16 05:10 - Constitutional Appears: No Acute Distress - Head Exam Head Exam: ATRAUMATIC, NORMAL INSPECTION, NORMOCEPHALIC - Eye Exam Eye Exam: EOMI, Normal appearance, PERRL Pupil Exam: NORMAL ACCOMODATION, PERRL - ENT Exam ENT Exam: Mucous Membranes Moist, Normal Exam - Neck Exam Neck Exam: Full ROM, Normal Inspection. absent: Lymphadenopathy - Respiratory Exam Respiratory Exam: Clear to Ausculation Bilateral, NORMAL BREATHING PATTERN - Cardiovascular Exam Cardiovascular Exam: REGULAR RHYTHM, +S1, +S2. absent: Murmur - GI/Abdominal Exam GI & Abdominal Exam: Soft, Tenderness, Normal Bowel Sounds - Extremities Exam Extremities Exam: Full ROM, Normal Capillary Refill, Normal Inspection. absent : Joint Swelling, Pedal Edema - Neurological Exam Neurological Exam: Alert, Awake, CN II-XII Intact, Normal Gait, Oriented x3 - Psychiatric Exam Psychiatric exam: Normal Affect, Normal Mood - Skin Skin Exam: Dry, Intact, Normal Color, Warm Assessment and Plan - Assessment and Plan (Free Text) Assessment: 71 F admitted to the ICU for sepsis and HD monitoring s/p ERCP with stone extraction and sphincterectomy. Neuro: Stable AAOx3 mentating well moving all extremities Gabapentin, morphine maintain normothermia Pulm: Stable 02 sat >90% on RA Maintain 02 Sat >90% CVS: HD Stable HTN stable Maintain MAP >70 IVF NS @150cc/hr Hydralazine 25mg TID Lisinopril 10mg Daily GI: s/p ERCP with stone extraction and sphincterectomy possible cholecystectomy as per Surgery team NPO GI consulted, Dr. Howard/Rene Surgery, Dr. Pastor Consulted TBili 4.9, transaminitis, ABD US, hep panel Colace, protonix, zosyn Renal: Renal Function worsening overnight, cr 0.9>2.3 minimal urine output overnight, hold lasix Pt bolused with 1L + 150cc/hr NS pt uop improved during the day approx 1L Continue to monitor electrolytes and replete as needed ID: afebrile, leukocytosis s/p ERCP with stone extraction and sphincterectomy POD#1 fu cx, pct zosyn continue to monitor Heme: H&H stable Continue to monitor Endo: Stable, maintain bg 140-180 Seen reviewed and discussed with Attending <Laure HAMMOND,Rachael H - Last Filed: 10/08/16 16:14> Objective - Vital Signs/Intake and Output Vital Signs (last 24 hours): Temp Pulse Resp BP Pulse Ox 98.2 F 91 H 22 149/78 100 10/07/16 16:07 10/08/16 15:10 10/08/16 15:10 10/08/16 15:00 10/08/16 15:10 Intake and Output: 10/08/16 10/08/16 06:59 18:59 Intake Total 2200 Balance 2200 - Medications Medications: Current Medications Calcium/Vitamin D (Oscal-D 250 Mg-125 Units Tab) 1 tab PO DAILY [facility] Last Admin: 10/08/16 13:19 Dose: Not Given Docusate Sodium (Colace) 100 mg PO DAILY [facility] Last Admin: 10/08/16 10:05 Dose: 100 mg Furosemide (Lasix) 40 mg PO DAILY [facility] Last Admin: 10/08/16 10:05 Dose: 40 mg Gabapentin (Neurontin) 100 mg PO HS [facility] PRN Reason: Protocol Last Admin: 10/07/16 21:14 Dose: Not Given Heparin Sodium (Porcine) (Heparin) 5,000 units SC Q12 [facility] PRN Reason: Protocol Last Admin: 10/08/16 09:59 Dose: 5,000 units Hydralazine HCl (Apresoline) 25 mg PO TID [facility] Last Admin: 10/08/16 13:21 Dose: 25 mg Acetaminophen (Ofirmev) 1,000 mg in 100 mls @ 400 mls/hr IVPB Q6H PRN PRN Reason: Pain, moderate (4-7) Stop: 10/09/16 19:05 Last Admin: 10/07/16 21:49 Dose: 400 mls/hr Sodium Chloride (Sodium Chloride 0.9%) 1,000 mls @ 150 mls/hr IV .Q6H40M [facility] Last Admin: 10/08/16 12:17 Dose: 150 mls/hr Piperacillin Sod/Tazobactam Sod (Zosyn 3.375 In Ns 100ml) 100 mls @ 200 mls/hr IVPB Q8 [facility] PRN Reason: Protocol Stop: 10/15/16 22:01 Levothyroxine Sodium (Synthroid) 300 mcg PO 0600 [facility] Last Admin: 10/08/16 05:39 Dose: Not Given Lisinopril (Zestril) 10 mg PO DAILY [facility] Last Admin: 10/08/16 10:05 Dose: 10 mg Morphine Sulfate (Morphine) 2 mg IVP Q4H PRN PRN Reason: Pain, moderate (4-7) Last Admin: 10/08/16 13:15 Dose: 2 mg Morphine Sulfate (Morphine) 4 mg IVP Q4H PRN PRN Reason: Pain, severe (8-10) Ondansetron HCl (Zofran Inj) 4 mg IVP Q6H PRN PRN Reason: Nausea/Vomiting Pantoprazole Sodium (Protonix Inj) 40 mg IVP DAILY [facility] Last Admin: 10/08/16 09:59 Dose: 40 mg - Labs Labs: 10/08/16 05:10 10/08/16 05:10 PT 10.8 Seconds (9.9-11.8) 10/06/16 23:30 INR 1.00 (0.93-1.08) 10/06/16 23:30 APTT 30.1 Seconds (23.7-30.8) 10/08/16 05:10 Attending/Attestation - Attestation I have personally seen and examined this patient.: Yes I have fully participated in the care of the patient.: Yes I have reviewed all pertinent clinical information, including history, physical exam and plan: Yes Notes (Text): 10/08/16 16:10 71 y/o F w/ Acute Cholycystectitisand CD s/p ERCP and Bile duct manipulation On Empiric abx and following up cx. Overnight BP sustained and mental status stable. Noted to have increased Creatnine and low urine output. Normal saline bolus and NS @ 150ml/hr Likely has sylvester from [facility]. Monitor urine output . dvt p cc time 45 min
[2016-10-08 19:26] LABS: ALB/GLOB RATIO 1.2 (1.1-1.8); ALBUMIN 3.9 g/dL (3.0-4.8); CALCIUM 7.2 mg/dL (8.4-10.5)
--- NOTE | 2016-10-08 23:16 | PN ---
DATE: 10/08/2016 SUBJECTIVE: The patient is lying in bed. She appears much more comfortable than yesterday. She underwent an ERCP with sphincterotomy with Dr. López yesterday on an emergent basis for ascending cholangitis. She had a sphincterotomy with stone extraction. Dr. López's efforts are greatly appreciated. The patient continues to have some abdominal pain as per Nursing requiring narcotic pain medications, but overall, her pain is less. OBJECTIVE: VITAL SIGNS: Reveal temperature of 98.2, blood pressure 149/78, heart rate of 91. ABDOMEN: Soft, less tenderness. No guarding. LABORATORY DATA: Reveal white blood cell count of 14.4, hemoglobin 9. Chemistries reveal BUN of 35, creatinine 2.3 this morning. AST is down to 224, ALT is down to 288, alkaline phosphatase is down to 216. Total bilirubin is still elevated at 4.9. IMPRESSION: A 71-year-old female with known gallstones, who has refused cholecystectomy in the past, admitted to the hospital with increasing abdominal pain, fever, elevated white blood cell count secondary to ascending cholangitis and sepsis. Her BUN and creatinine are also elevated, which I believe are related to sepsis. She underwent an emergency endoscopic retrograde cholangiopancreatography with sphincterotomy and stone extraction with Dr. López yesterday. Clinically, she appears to be improved. RECOMMENDATIONS: 1. Continue IV Zosyn 3.375 g q. 6 hours. 2. Continue n.p.o. 3. Follow liver enzymes. 4. Surgical followup for cholecystectomy in the next 7 days. Again, Dr. López's efforts from yesterday are greatly appreciated. Christopher Howard MD
[2016-10-09] MEDS: Sodium Chloride 0.9% 1,000 ML IV SCH (05:38)
[2016-10-09] MEDS: Piperacillin/Tazobact 3.375 gm 100 ML IVPB SCH (05:41)
[2016-10-09] MEDS: Levothyroxine 150 MCG TAB PO SCH (05:41)
[2016-10-09 06:31] LABS: BASO # 0.02 K/mm3 (0.0-2.0); BASO % 0.2 % (0.0-3.0); EOS # 0.2 (0.0-0.7); EOS % 1.7 % (1.5-5.0); GRAN # 6.65 (1.4-6.5); GRAN % 77.6 % (50.0-68.0); HEMOGLOBIN 8.9 g/dL (12.0-16.0); LYMPH # 0.9 (1.2-3.4); LYMPH % 10.1 % (22.0-35.0); MEAN CELL VOLUME 75.5 fl (80.0-105.0); MEAN CORPUSCULAR HEMOGLOBIN 24.8 pg (25.0-35.0); MEAN CORPUSCULAR HGB CONC 32.8 g/dl (31.0-37.0); MONO # 0.9 (0.1-0.6); MONO % 10.4 % (1.0-6.0); PLATELET COUNT 199 10^3/uL (120.0-450.0); RBC 3.59 10^6/uL (3.5-6.1); RED CELL DISTRIBUTION WIDTH 16.4 % (11.5-14.5); WHITE BLOOD COUNT 8.6 10^3/ul (4.5-11.0)
[2016-10-09 06:45] LABS: CALCIUM 7.3 mg/dL (8.4-10.5)
[2016-10-09 06:52] LABS: ALBUMIN 3.4 g/dL (3.0-4.8)
--- NOTE | 2016-10-09 07:54 | CP.PCM.PN ---
Subjective - Date & Time of Evaluation Date of Evaluation: 10/09/16 Time of Evaluation: 07:35 - Subjective Subjective: Patient is a 71 year old female admitted to [facility] [place] ED 10/06/16 found to have acute cholangitis s/p ERCP with stone extraction and sphincterectomy seen and examined at bedside today in no acute distress. Patient is energetic and states that she is ready to go home since her abdominal pain has decreased to a 2/10. Patient denies n/v/d/f. Objective - Vital Signs/Intake and Output Vital Signs (last 24 hours): Temp Pulse Resp BP Pulse Ox 98.1 F 80 22 170/74 H 94 L 10/09/16 06:00 10/09/16 06:00 10/09/16 06:00 10/09/16 06:00 10/09/16 06:00 Intake and Output: 10/09/16 10/09/16 06:59 18:59 Intake Total 1800 Output Total 1900 Balance -100 - Medications Medications: Current Medications Calcium/Vitamin D (Oscal-D 250 Mg-125 Units Tab) 1 tab PO DAILY [facility] Last Admin: 10/08/16 13:19 Dose: Not Given Docusate Sodium (Colace) 100 mg PO DAILY [facility] Last Admin: 10/08/16 10:05 Dose: 100 mg Furosemide (Lasix) 40 mg PO DAILY [facility] Last Admin: 10/08/16 10:05 Dose: 40 mg Gabapentin (Neurontin) 100 mg PO HS NORM PRN Reason: Protocol Last Admin: 10/08/16 21:09 Dose: 100 mg Heparin Sodium (Porcine) (Heparin) 5,000 units SC Q12 NORM PRN Reason: Protocol Last Admin: 10/08/16 21:09 Dose: 5,000 units Hydralazine HCl (Apresoline) 25 mg PO TID [facility] Last Admin: 10/08/16 13:21 Dose: 25 mg Acetaminophen (Ofirmev) 1,000 mg in 100 mls @ 400 mls/hr IVPB Q6H PRN PRN Reason: Pain, moderate (4-7) Stop: 10/09/16 19:05 Last Admin: 10/07/16 21:49 Dose: 400 mls/hr Sodium Chloride (Sodium Chloride 0.9%) 1,000 mls @ 150 mls/hr IV .Q6H40M [facility] Last Admin: 10/09/16 05:38 Dose: 150 mls/hr Piperacillin Sod/Tazobactam Sod (Zosyn 3.375 In Ns 100ml) 100 mls @ 200 mls/hr IVPB Q8 NORM PRN Reason: Protocol Stop: 10/15/16 22:01 Last Admin: 10/09/16 05:41 Dose: 200 mls/hr Potassium Chloride (Potassium Chloride 20 Meq/100 Ml) 20 meq in 100 mls @ 50 mls/hr IVPB Q2H NORM Stop: 10/09/16 11:44 Levothyroxine Sodium (Synthroid) 300 mcg PO 0600 [facility] Last Admin: 10/09/16 05:41 Dose: 300 mcg Lisinopril (Zestril) 10 mg PO DAILY [facility] Last Admin: 10/08/16 10:05 Dose: 10 mg Morphine Sulfate (Morphine) 2 mg IVP Q4H PRN PRN Reason: Pain, moderate (4-7) Last Admin: 10/08/16 13:15 Dose: 2 mg Morphine Sulfate (Morphine) 4 mg IVP Q4H PRN PRN Reason: Pain, severe (8-10) Ondansetron HCl (Zofran Inj) 4 mg IVP Q6H PRN PRN Reason: Nausea/Vomiting Pantoprazole Sodium (Protonix Inj) 40 mg IVP DAILY [facility] Last Admin: 10/08/16 09:59 Dose: 40 mg - Labs Labs: 10/09/16 05:45 10/09/16 05:45 PT 10.8 Seconds (9.9-11.8) 10/06/16 23:30 INR 1.00 (0.93-1.08) 10/06/16 23:30 APTT 30.1 Seconds (23.7-30.8) 10/08/16 05:10 - Constitutional Appears: Well - Head Exam Head Exam: ATRAUMATIC, NORMAL INSPECTION, NORMOCEPHALIC - ENT Exam ENT Exam: Mucous Membranes Moist, Normal Exam - Respiratory Exam Respiratory Exam: Clear to Ausculation Bilateral, NORMAL BREATHING PATTERN - Cardiovascular Exam Cardiovascular Exam: REGULAR RHYTHM, +S1, +S2 - GI/Abdominal Exam GI & Abdominal Exam: Soft, Tenderness - Neurological Exam Neurological Exam: Alert, Awake, Oriented x3 - Skin Skin Exam: Normal Color, Warm Assessment and Plan - Assessment and Plan (Free Text) Plan: 1. Patient is a 71 year old female admitted to [facility] [place] ED 10/06/16 found to have acute cholangitis s/p ERCP with stone extraction and sphincterectomy - WBC currently 8.6 down from 14.4 yesterday. Abx regimen currently includes Zosyn day 3; Blood cx pending - LFTs continue to downtrend. T bilirbin: 3.0, AST: 115, ALT: 214. AP: 247 from 230 yesterday. - Will continue to monitor LFTs - HIDA scan ordered; results pending - Lab choleycystectomy scheduled for 10/10/16 pending HIDA results
[2016-10-09] MEDS ORDERED: Sodium Chloride 0.9% 1,000 ML IV SCH (09:13)
[2016-10-09] MEDS ORDERED: Potassium Chloride 20 mEq ER Tab PO ONE ×3 (09:40→17:15)
--- NOTE | 2016-10-09 09:41 | CP.PCM.PN ---
Subjective - Date & Time of Evaluation Date of Evaluation: 10/09/16 Time of Evaluation: 09:15 - Subjective Subjective: Still with mild Right upper quadrant pain but better, no fevers overnight, no nausea or vomiting. Objective - Vital Signs/Intake and Output Vital Signs (last 24 hours): Temp Pulse Resp BP Pulse Ox 98.1 F 80 22 170/74 H 94 L 10/09/16 06:00 10/09/16 06:00 10/09/16 06:00 10/09/16 06:00 10/09/16 06:00 Intake and Output: 10/08/16 10/09/16 18:59 06:59 Intake Total 2515 1800 Output Total 2175 1900 Balance 340 -100 - Medications Medications: Current Medications Calcium/Vitamin D (Oscal-D 250 Mg-125 Units Tab) 1 tab PO DAILY [facility] Last Admin: 10/08/16 13:19 Dose: Not Given Docusate Sodium (Colace) 100 mg PO DAILY [facility] Last Admin: 10/08/16 10:05 Dose: 100 mg Furosemide (Lasix) 40 mg PO DAILY [facility] Last Admin: 10/08/16 10:05 Dose: 40 mg Gabapentin (Neurontin) 100 mg PO HS [facility] PRN Reason: Protocol Last Admin: 10/08/16 21:09 Dose: 100 mg Heparin Sodium (Porcine) (Heparin) 5,000 units SC Q12 NORM PRN Reason: Protocol Last Admin: 10/08/16 21:09 Dose: 5,000 units Hydralazine HCl (Apresoline) 25 mg PO TID [facility] Last Admin: 10/08/16 13:21 Dose: 25 mg Acetaminophen (Ofirmev) 1,000 mg in 100 mls @ 400 mls/hr IVPB Q6H PRN PRN Reason: Pain, moderate (4-7) Stop: 10/09/16 19:05 Last Admin: 10/07/16 21:49 Dose: 400 mls/hr Sodium Chloride (Sodium Chloride 0.9%) 1,000 mls @ 150 mls/hr IV .Q6H40M [facility] Last Admin: 10/09/16 05:38 Dose: 150 mls/hr Piperacillin Sod/Tazobactam Sod (Zosyn 3.375 In Ns 100ml) 100 mls @ 200 mls/hr IVPB Q8 NORM PRN Reason: Protocol Stop: 10/15/16 22:01 Last Admin: 10/09/16 05:41 Dose: 200 mls/hr Levothyroxine Sodium (Synthroid) 300 mcg PO 0600 [facility] Last Admin: 10/09/16 05:41 Dose: 300 mcg Lisinopril (Zestril) 10 mg PO DAILY [facility] Last Admin: 10/08/16 10:05 Dose: 10 mg Morphine Sulfate (Morphine) 2 mg IVP Q4H PRN PRN Reason: Pain, moderate (4-7) Last Admin: 10/08/16 13:15 Dose: 2 mg Morphine Sulfate (Morphine) 4 mg IVP Q4H PRN PRN Reason: Pain, severe (8-10) Ondansetron HCl (Zofran Inj) 4 mg IVP Q6H PRN PRN Reason: Nausea/Vomiting Pantoprazole Sodium (Protonix Inj) 40 mg IVP DAILY [facility] Last Admin: 10/08/16 09:59 Dose: 40 mg - Labs Labs: 10/09/16 05:45 10/08/16 16:21 PT 10.8 Seconds (9.9-11.8) 10/06/16 23:30 INR 1.00 (0.93-1.08) 10/06/16 23:30 APTT 30.1 Seconds (23.7-30.8) 10/08/16 05:10 - Constitutional Appears: Non-toxic, No Acute Distress - Head Exam Head Exam: NORMAL INSPECTION - ENT Exam ENT Exam: Mucous Membranes Moist - Neck Exam Neck Exam: absent: Meningismus - Respiratory Exam Respiratory Exam: Decreased Breath Sounds - Cardiovascular Exam Cardiovascular Exam: +S1, +S2 - GI/Abdominal Exam GI & Abdominal Exam: Soft. absent: Tenderness Assessment and Plan - Assessment and Plan (Free Text) Plan: Assessment Sepsis due to acute cholangitis S/P ERCP, stone extraction and sphincterotomy POD #2 acute renal failure, etiology to be determined HTN thyroid cancer S/P thyroidectomy and parathyroidectomy obesity with BMI 30 Plan continue Zosyn (day 3 today) and follow up final blood cx and cultures from the ERCP procedure (negative so far) follow up Renal evaluation and recommendations regarding renal failure will continue to monitor clinically
[2016-10-09] MEDS: Calcium-Vit D 250 mg-125 Units Tab UD PO SCH (10:22)
[2016-10-09] MEDS: Sodium Chloride 0.45% 1,000 ML IV SCH (12:00)
[2016-10-09] MEDS: Piperacillin/Tazobact 2.25gm 2.25 GM/100 ML BAG IVPB SCH ×2 (13:00→18:46)
--- NOTE | 2016-10-09 14:00 | CP.PCM.PN ---
<LashonPattie - Last Filed: 10/09/16 14:02> Subjective - Date & Time of Evaluation Date of Evaluation: 10/09/16 Time of Evaluation: 13:58 - Subjective Subjective: Internal Medicine Progress note for Dr. Licona PT S&E at bedside Patient is Bulgarian speaking only. Fluids increased to 125 cc/hr due to continued resolved BUN/Cr elevation 35/2.0. Urine Output 1900cc over 12 hours. Bladder scan unnecessary at this time. FENa calculations to follow Urine Electrolyte readings. Patient admits to abdominal pain throughout her whole abdomen with the worst pain in RUQ. Patient states her pain is 2/10. Patient is eager to have the cholecystectomy. Family does not want surgery due to the fact that patient is leaving for [facility] on 10/16 to get her green card on 10/20. Objective - Vital Signs/Intake and Output Vital Signs (last 24 hours): Temp Pulse Resp BP Pulse Ox 98.1 F 73 23 192/99 H 98 10/09/16 06:00 10/09/16 13:43 10/09/16 11:28 10/09/16 13:43 10/09/16 11:28 Intake and Output: 10/09/16 10/09/16 06:59 18:59 Intake Total 1800 Output Total 1900 Balance -100 - Medications Medications: Current Medications Calcium/Vitamin D (Oscal-D 250 Mg-125 Units Tab) 1 tab PO DAILY [facility] Last Admin: 10/09/16 10:22 Dose: 1 tab Docusate Sodium (Colace) 100 mg PO DAILY [facility] Last Admin: 10/09/16 10:22 Dose: 100 mg Furosemide (Lasix) 40 mg PO DAILY [facility] Last Admin: 10/08/16 10:05 Dose: 40 mg Gabapentin (Neurontin) 100 mg PO HS NORM PRN Reason: Protocol Last Admin: 10/08/16 21:09 Dose: 100 mg Heparin Sodium (Porcine) (Heparin) 5,000 units SC Q12 NORM PRN Reason: Protocol Last Admin: 10/09/16 10:22 Dose: 5,000 units Hydralazine HCl (Apresoline) 50 mg PO TID [facility] Last Admin: 10/09/16 13:43 Dose: 50 mg Acetaminophen (Ofirmev) 1,000 mg in 100 mls @ 400 mls/hr IVPB Q6H PRN PRN Reason: Pain, moderate (4-7) Stop: 10/09/16 19:05 Last Admin: 10/07/16 21:49 Dose: 400 mls/hr Piperacillin Sod/Tazobactam Sod (Zosyn 2.25 Gm In 0.9% 100 Ml) 2.25 gm in 100 mls @ 100 mls/hr IVPB Q6 NORM PRN Reason: Protocol Stop: 10/17/16 12:01 Last Admin: 10/09/16 13:00 Dose: 100 mls/hr Sodium Chloride (Sodium Chloride 0.45%) 1,000 mls @ 125 mls/hr IV .Q8H [facility] Last Admin: 10/09/16 12:00 Dose: 125 mls/hr Levothyroxine Sodium (Synthroid) 300 mcg PO 0600 [facility] Last Admin: 10/09/16 05:41 Dose: 300 mcg Lisinopril (Zestril) 10 mg PO DAILY [facility] Last Admin: 10/08/16 10:05 Dose: 10 mg Morphine Sulfate (Morphine) 2 mg IVP Q4H PRN PRN Reason: Pain, moderate (4-7) Last Admin: 10/08/16 13:15 Dose: 2 mg Morphine Sulfate (Morphine) 4 mg IVP Q4H PRN PRN Reason: Pain, severe (8-10) Ondansetron HCl (Zofran Inj) 4 mg IVP Q6H PRN PRN Reason: Nausea/Vomiting Pantoprazole Sodium (Protonix Inj) 40 mg IVP DAILY [facility] Last Admin: 10/09/16 10:22 Dose: 40 mg - Labs Labs: 10/09/16 05:45 10/09/16 05:45 PT 10.8 Seconds (9.9-11.8) 10/06/16 23:30 INR 1.00 (0.93-1.08) 10/06/16 23:30 APTT 30.1 Seconds (23.7-30.8) 10/08/16 05:10 - Constitutional Appears: Non-toxic, No Acute Distress - Head Exam Head Exam: NORMAL INSPECTION - Eye Exam Eye Exam: EOMI, Normal appearance - ENT Exam ENT Exam: Mucous Membranes Moist - Neck Exam Neck Exam: Full ROM, Normal Inspection - Respiratory Exam Respiratory Exam: Clear to Ausculation Bilateral, NORMAL BREATHING PATTERN. absent: Accessory Muscle Use, Respiratory Distress - Cardiovascular Exam Cardiovascular Exam: REGULAR RHYTHM. absent: Bradycardia, Tachycardia - GI/Abdominal Exam GI & Abdominal Exam: Normal Bowel Sounds. absent: Hyperactive Bowel Sounds, Hypoactive Bowel Sounds - Extremities Exam Extremities Exam: Full ROM. absent: Normal Inspection, Pedal Edema, Tenderness - Neurological Exam Neurological Exam: Alert, Awake, Normal Gait - Psychiatric Exam Psychiatric exam: Normal Affect, Normal Mood. absent: Flat Affect - Skin Skin Exam: Dry, Intact, Normal Color <Rangasamy,Ajantha - Last Filed: 10/10/16 07:45> Objective - Vital Signs/Intake and Output Vital Signs (last 24 hours): Temp Pulse Resp BP Pulse Ox 98.2 F 71 20 163/85 H 98 10/10/16 01:14 10/10/16 01:14 10/10/16 01:14 10/10/16 01:14 10/09/16 11:28 Intake and Output: 10/10/16 10/10/16 06:59 18:59 Intake Total 940 Balance 940 - Medications Medications: Current Medications Calcium/Vitamin D (Oscal-D 250 Mg-125 Units Tab) 1 tab PO DAILY [facility] Last Admin: 10/09/16 10:22 Dose: 1 tab Docusate Sodium (Colace) 100 mg PO DAILY [facility] Last Admin: 10/09/16 10:22 Dose: 100 mg Furosemide (Lasix) 40 mg PO DAILY [facility] Last Admin: 10/08/16 10:05 Dose: 40 mg Gabapentin (Neurontin) 100 mg PO HS [facility] PRN Reason: Protocol Last Admin: 10/09/16 21:38 Dose: 100 mg Heparin Sodium (Porcine) (Heparin) 5,000 units SC Q12 NORM PRN Reason: Protocol Last Admin: 10/09/16 21:38 Dose: 5,000 units Hydralazine HCl (Apresoline) 50 mg PO TID [facility] Last Admin: 10/09/16 18:23 Dose: 50 mg Piperacillin Sod/Tazobactam Sod (Zosyn 2.25 Gm In 0.9% 100 Ml) 2.25 gm in 100 mls @ 100 mls/hr IVPB Q6 NORM PRN Reason: Protocol Stop: 10/17/16 12:01 Last Admin: 10/10/16 05:44 Dose: 100 mls/hr Sodium Chloride (Sodium Chloride 0.45%) 1,000 mls @ 125 mls/hr IV .Q8H [facility] Last Admin: 10/09/16 12:00 Dose: 125 mls/hr Levothyroxine Sodium (Synthroid) 300 mcg PO 0600 [facility] Last Admin: 10/10/16 05:58 Dose: Not Given Lisinopril (Zestril) 10 mg PO DAILY [facility] Last Admin: 10/08/16 10:05 Dose: 10 mg Morphine Sulfate (Morphine) 2 mg IVP Q4H PRN PRN Reason: Pain, moderate (4-7) Last Admin: 10/08/16 13:15 Dose: 2 mg Morphine Sulfate (Morphine) 4 mg IVP Q4H PRN PRN Reason: Pain, severe (8-10) Ondansetron HCl (Zofran Inj) 4 mg IVP Q6H PRN PRN Reason: Nausea/Vomiting Pantoprazole Sodium (Protonix Inj) 40 mg IVP DAILY [facility] Last Admin: 10/09/16 10:22 Dose: 40 mg - Labs Labs: 10/10/16 06:15 10/10/16 06:15 PT 10.7 Seconds (9.9-11.8) 10/10/16 06:15 INR 0.99 (0.93-1.08) 10/10/16 06:15 APTT 25.6 Seconds (23.7-30.8) 10/10/16 06:15 Attending/Attestation - Attestation I have personally seen and examined this patient.: Yes I have fully participated in the care of the patient.: Yes I have reviewed all pertinent clinical information, including history, physical exam and plan: Yes Notes (Text): 10/10/16 07:41 attending note; Patient seen and examined with resident. Patient is a 71-year-old Bulgarian speaking female admitted with abdominal pain. Found to have acute cholangitis. Status post ERCP stone removal with sphincterotomy. LFTs improving. continue IV zosyn. acute renal failure;resolving. secondary to episodes of hypotension. IV fluids increased. Urine output should be monitored closely. possible lap cholecystectomy tomorrow as per surgery. 10/10/16 07:45
--- NOTE | 2016-10-09 14:14 | CP.CCUPN ---
CCU Subjective - Physician Review Events Since Last Encounter (Free Text): 10/09/16 14:10 Maria Isabel cute events overnight. Pain controlled and BP are WNL. CCU Objective - Vital Signs / Intake & Output Vital Signs (Last 4 hours): Vital Signs Pulse Resp BP Pulse Ox 10/09/16 13:43 73 192/99 H 10/09/16 11:28 82 23 191/99 H 98 10/09/16 11:00 77 28 H 183/95 H 95 10/09/16 10:22 74 177/85 H Intake and Output (Last 8hrs): Intake & Output 10/08/16 10/09/16 10/09/16 22:59 06:59 14:59 Intake Total 2515 1800 Output Total 2175 1900 Balance 340 -100 Intake: IV 2485 1700 Left Hand 2050 1700 Right Antecubital 435 0 Oral 30 100 Output: Urine 2175 1900 Urine, Voided 2175 1900 Other: Voiding Method Bedside Commode # Bowel Movements 0 0 - Physical Exam Head: Positive for: Atraumatic, Normocephalic Pupils: Positive for: PERRL Extroacular Muscles: Positive for: EOMI Conjunctiva: Positive for: Normal Mouth: Positive for: Moist Mucous Membranes Neck: Positive for: Normal Range of Motion Respiratory/Chest: Positive for: Clear to Auscultation, Good Air Exchange. Negative for: Respiratory Distress, Accessory Muscle Use Cardiovascular: Positive for: Regular Rate and Rhythm, Normal S1, S2. Negative for: Murmurs Abdomen: Positive for: Tenderness (Diffuse abdominal tenderness), Normal Bowel Sounds. Negative for: Distention, Peritoneal Signs Back: Positive for: Normal Inspection Upper Extremity: Positive for: Normal Inspection. Negative for: Cyanosis, Edema Lower Extremity: Positive for: Normal Inspection. Negative for: Edema Neurological: Positive for: GCS=15, CN II-XII Intact, Speech Normal Skin: Positive for: Warm, Dry, Normal Color. Negative for: Rashes Psychiatric: Positive for: Alert, Oriented x 3, Normal Insight, Normal Concentration - Medications Active Medications: Active Medications Generic Name Dose Route Start Last Admin Trade Name Freq PRN Reason Stop Dose Admin Calcium/Vitamin D 1 tab 10/08/16 12:45 10/09/16 10:22 Oscal-D 250 Mg-125 Units Tab PO 1 tab DAILY [facility] Administration Docusate Sodium 100 mg 10/07/16 10:00 10/09/16 10:22 Colace PO 100 mg DAILY [facility] Administration Furosemide 40 mg 10/07/16 10:00 10/08/16 10:05 Lasix PO 40 mg DAILY [facility] Administration Gabapentin 100 mg 10/07/16 22:00 10/08/16 21:09 Neurontin PO 100 mg HS NORM Administration Protocol Heparin Sodium (Porcine) 5,000 units 10/07/16 10:00 10/09/16 10:22 Heparin SC 5,000 units Q12 NORM Administration Protocol Hydralazine HCl 50 mg 10/09/16 14:00 10/09/16 13:43 Apresoline PO 50 mg TID NORM Administration Acetaminophen 1,000 mg in 100 mls @ 400 mls/hr 10/07/16 19:04 10/07/16 21:49 Ofirmev IVPB 10/09/16 19:05 400 mls/hr Q6H PRN Administration Pain, moderate (4-7) Piperacillin Sod/Tazobactam Sod 2.25 gm in 100 mls @ 100 mls/hr 10/09/16 12: 00 10/09/16 13:00 Zosyn 2.25 Gm In 0.9% 100 Ml IVPB 10/17/16 12:01 100 mls/hr Q6 NORM Administration Protocol Sodium Chloride 1,000 mls @ 125 mls/hr 10/09/16 11:45 10/09/16 12:00 Sodium Chloride 0.45% IV 125 mls/hr .Q8H NORM Administration Levothyroxine Sodium 300 mcg 10/07/16 06:00 10/09/16 05:41 Synthroid PO 300 mcg 0600 NORM Administration Lisinopril 10 mg 10/07/16 10:00 10/08/16 10:05 Zestril PO 10 mg DAILY [facility]ORM Administration Morphine Sulfate 2 mg 10/08/16 06:22 10/08/16 13:15 Morphine IVP 2 mg Q4H PRN Administration Pain, moderate (4-7) Morphine Sulfate 4 mg 10/08/16 06:22 Morphine IVP Q4H PRN Pain, severe (8-10) Ondansetron HCl 4 mg 10/07/16 05:21 Zofran Inj IVP Q6H PRN Nausea/Vomiting Pantoprazole Sodium 40 mg 10/07/16 10:00 10/09/16 10:22 Protonix Inj IVP 40 mg DAILY [facility]ORM Administration - Patient Studies Lab Studies: Microbiology Studies 10/07/16 17:55 MRSA Culture (Admit) - Final Naris MRSA NOT DETECTED Lab Studies 10/09/16 10/09/16 10/08/16 Range/Units 05:45 05:45 16:54 WBC 8.6 D (4.5-11.0) 10^3/ul RBC 3.59 (3.5-6.1) 10^6/uL Hgb 8.9 L (12.0-16.0) g/dL Hct 27.1 L (36.0-48.0) % MCV 75.5 L (80.0-105.0) fl MCH 24.8 L (25.0-35.0) pg MCHC 32.8 (31.0-37.0) g/dl RDW 16.4 H (11.5-14.5) % Plt Count 199 (120.0-450.0) 10^3/uL MPV 11.0 (7.0-11.0) fl Gran % 77.6 H (50.0-68.0) % Lymph % (Auto) 10.1 L (22.0-35.0) % [place] % (Auto) 10.4 H (1.0-6.0) % Eos % (Auto) 1.7 (1.5-5.0) % Baso % (Auto) 0.2 (0.0-3.0) % Gran # 6.65 H (1.4-6.5) Lymph # 0.9 L (1.2-3.4) [place] # 0.9 H (0.1-0.6) Eos # 0.2 (0.0-0.7) Baso # 0.02 (0.0-2.0) K/mm3 Sodium 146 (132-148) mmol/L Potassium 2.8 L* (3.6-5.0) mmol/L Chloride 109 (98-107) mmol/L Carbon Dioxide 21 (21-33) mmol/L Anion Gap 19 (10-20) BUN 35 H (7-21) mg/dL Creatinine 2.0 H (0.5-1.4) mg/dL Est GFR ( Amer) 30 Est GFR (Non-Af Amer) 25 Random Glucose 70 (70-110) mg/dL Calcium 7.3 L (8.4-10.5) mg/dL Total Bilirubin 3.0 H (0.2-1.3) mg/dL AST 115 H (15-39) U/L ALT 214 H (7-56) U/L Alkaline Phosphatase 247 H (38-133) U/L Total Protein 6.7 (5.8-8.3) g/dL Albumin 3.4 (3.0-4.8) g/dL Globulin 3.3 gm/dL Albumin/Globulin Ratio 1.0 L (1.1-1.8) Ur Random Creatinine 102 mg/dL Ur Random Sodium 46 meq/L Ur Random Potassium 50.2 meq/L 10/08/16 Range/Units 16:21 WBC (4.5-11.0) 10^3/ul RBC (3.5-6.1) 10^6/uL Hgb (12.0-16.0) g/dL Hct (36.0-48.0) % MCV (80.0-105.0) fl MCH (25.0-35.0) pg MCHC (31.0-37.0) g/dl RDW (11.5-14.5) % Plt Count (120.0-450.0) 10^3/uL MPV (7.0-11.0) fl Gran % (50.0-68.0) % Lymph % (Auto) (22.0-35.0) % [place] % (Auto) (1.0-6.0) % Eos % (Auto) (1.5-5.0) % Baso % (Auto) (0.0-3.0) % Gran # (1.4-6.5) Lymph # (1.2-3.4) [place] # (0.1-0.6) Eos # (0.0-0.7) Baso # (0.0-2.0) K/mm3 Sodium 143 (132-148) mmol/L Potassium 3.9 (3.6-5.0) mmol/L Chloride 105 (98-107) mmol/L Carbon Dioxide 16 L (21-33) mmol/L Anion Gap 26 H (10-20) BUN 38 H (7-21) mg/dL Creatinine 2.0 H (0.5-1.4) mg/dL Est GFR ( Amer) 30 Est GFR (Non-Af Amer) 25 Random Glucose 79 (70-110) mg/dL Calcium 7.2 L (8.4-10.5) mg/dL Total Bilirubin 5.1 H (0.2-1.3) mg/dL AST 178 H (15-39) U/L ALT 288 H (7-56) U/L Alkaline Phosphatase 230 H (38-133) U/L Total Protein 7.2 (5.8-8.3) g/dL Albumin 3.9 (3.0-4.8) g/dL Globulin 3.3 gm/dL Albumin/Globulin Ratio 1.2 (1.1-1.8) Ur Random Creatinine mg/dL Ur Random Sodium meq/L Ur Random Potassium meq/L Laboratory Results - last 24 hr 10/08/16 10/08/16 10/09/16 16:21 16:54 05:45 WBC 8.6 D RBC 3.59 Hgb 8.9 L Hct 27.1 L MCV 75.5 L MCH 24.8 L MCHC 32.8 RDW 16.4 H Plt Count 199 MPV 11.0 Gran % 77.6 H Lymph % (Auto) 10.1 L [place] % (Auto) 10.4 H Eos % (Auto) 1.7 Baso % (Auto) 0.2 Gran # 6.65 H Lymph # 0.9 L [place] # 0.9 H Eos # 0.2 Baso # 0.02 Sodium 143 Potassium 3.9 Chloride 105 Carbon Dioxide 16 L Anion Gap 26 H BUN 38 H Creatinine 2.0 H Est GFR ( Amer) 30 Est GFR (Non-Af Amer) 25 Random Glucose 79 Calcium 7.2 L Total Bilirubin 5.1 H AST 178 H ALT 288 H Alkaline Phosphatase 230 H Total Protein 7.2 Albumin 3.9 Globulin 3.3 Albumin/Globulin Ratio 1.2 Ur Random Creatinine 102 Ur Random Sodium 46 Ur Random Potassium 50.2 10/09/16 05:45 WBC RBC Hgb Hct MCV MCH MCHC RDW Plt Count MPV Gran % Lymph % (Auto) [place] % (Auto) Eos % (Auto) Baso % (Auto) Gran # Lymph # [place] # Eos # Baso # Sodium 146 Potassium 2.8 L* Chloride 109 Carbon Dioxide 21 Anion Gap 19 BUN 35 H Creatinine 2.0 H Est GFR ( Amer) 30 Est GFR (Non-Af Amer) 25 Random Glucose 70 Calcium 7.3 L Total Bilirubin 3.0 H AST 115 H ALT 214 H Alkaline Phosphatase 247 H Total Protein 6.7 Albumin 3.4 Globulin 3.3 Albumin/Globulin Ratio 1.0 L Ur Random Creatinine Ur Random Sodium Ur Random Potassium Review of Systems - EENT Eyes: UNREMARKABLE Ears: UNREMARKABLE Nose/Mouth/Throat: UNREMARKABLE - Breasts Breasts: UNREMARKABLE - Cardiovascular Cardiovascular: UNREMARKABLE - Respiratory Respiratory: UNREMARKABLE - Gastrointestinal Gastrointestinal: UNREMARKABLE - Musculoskeletal Musculoskeletal: UNREMARKABLE - Integumentary Integumentary: Non-Healing Lesions, UNREMARKABLE - Neurological Neurological: UNREMARKABLE Critical Care Progress Note - Nutrition Nutrition: Nutrition Category Date Time Status Liquid Diet [DIET] Diets 10/09/16 Lunch Ordered Assessment/Plan - Assessment and Plan (Free Text) Assessment: 71 y/o F w/ Acute Cholycystitis s/p ERCP and stone removal . Currently pain controlled and on empiric abx for infection . No signs of septicemia. Plan for Gb removal per surgery during this hospital stay . Pain controlled and diet advanced. Lala , likely from pre renal causes. Continue IV fluids. Med-surg appropriate. cc time 65 min
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
--- NOTE | 2016-10-09 20:00 | PN ---
DATE: 10/09/2016 SUBJECTIVE: The patient is lying in bed comfortable. Her abdominal pain appears to have resolved. There is no nausea or vomiting. OBJECTIVE: VITAL SIGNS: Reveal that she is afebrile. Blood pressure 192/99, heart rate 73. ABDOMEN: Protuberant, soft, nontender. LABORATORY DATA: Reveal white blood cell count down to 8.6, hemoglobin 8.9. Reveal bilirubin down to 3.0, AST down to 115, ALT down to 214, alkaline phosphatase down to 247. All blood cultures remained negative. IMPRESSION: This 71-year-old female with known cholelithiasis, admitted to the hospital with severe right upper quadrant abdominal pain, fever, elevated liver enzymes status post endoscopic retrograde cholangiopancreatography and sphincterotomy with stone extraction for common bile duct stone and ascending cholangitis. The patient developed acute renal insufficiency which appears to be improving. RECOMMENDATIONS: 1. The patient is scheduled to have a cholecystectomy in the morning. 2. I will start the patient on clear liquids. 3. Follow liver enzymes. Christopher Howard MD
[2016-10-10] MEDS: Piperacillin/Tazobact 2.25gm 2.25 GM/100 ML BAG IVPB SCH ×2 (01:18→05:44)
[2016-10-10] MEDS: Levothyroxine 150 MCG TAB PO SCH (05:58)
[2016-10-10 06:28] LABS: BASO # 0.02 K/mm3 (0.0-2.0); BASO % 0.2 % (0.0-3.0); EOS # 0.2 (0.0-0.7); GRAN # 5.19 (1.4-6.5); HEMOGLOBIN 10.3 g/dL (12.0-16.0); LYMPH # 1.8 (1.2-3.4); LYMPH % 21.9 % (22.0-35.0); MEAN CELL VOLUME 75.9 fl (80.0-105.0); MEAN CORPUSCULAR HEMOGLOBIN 25.6 pg (25.0-35.0); MEAN CORPUSCULAR HGB CONC 33.8 g/dl (31.0-37.0); MEAN PLATELET VOLUME 10.4 fl (7.0-11.0); MONO % 11.9 % (1.0-6.0); PLATELET COUNT 241 10^3/uL (120.0-450.0); RBC 4.02 10^6/uL (3.5-6.1); RED CELL DISTRIBUTION WIDTH 16.1 % (11.5-14.5); WHITE BLOOD COUNT 8.1 10^3/ul (4.5-11.0)
[2016-10-10 06:35] LABS: INR 0.99 (0.93-1.08); PARTIAL THROMBOPLASTIN TIME 25.6 Seconds (23.7-30.8); PROTHROMBIN TIME 10.7 Seconds (9.9-11.8)
[2016-10-10 06:46] LABS: ALBUMIN 3.5 g/dL (3.0-4.8); MAGNESIUM 1.9 mg/dL (1.7-2.2)
[2016-10-10] MEDS ORDERED: Propofol 10 mg/ml Inj (20 ML) ONE (07:24)
[2016-10-10] MEDS ORDERED: Rocuronium 10 mg/ml (5 ml) ONE ×2 (07:24→08:11)
[2016-10-10] MEDS ORDERED: Midazolam 2 MG/2 ML VIAL ONE (07:24)
--- NOTE | 2016-10-10 07:37 | CP.PCM.PN ---
<LashonPattie - Last Filed: 10/10/16 14:32> Subjective - Date & Time of Evaluation Date of Evaluation: 10/10/16 Time of Evaluation: 07:37 - Subjective Subjective: Progress Note for Dr. Licona: PT S&E at bedside. DENZEL. Patient was given one PRBC overnight. Patient's new Hgb is 10.3. Patient having surgery at 7:30am. post operatively, patient was seen at bedside. Patient is complaining of abd pain around incision site, but tolerating pain well. Patient was up asking for maria arnoldo and something for the pain in her throat. Per surgery team observation, patient was eating her lunch at time of post-op check. Objective - Vital Signs/Intake and Output Vital Signs (last 24 hours): Temp Pulse Resp BP Pulse Ox 98.2 F 71 20 163/85 H 98 10/10/16 01:14 10/10/16 01:14 10/10/16 01:14 10/10/16 01:14 10/09/16 11:28 Intake and Output: 10/10/16 10/10/16 06:59 18:59 Intake Total 940 Balance 940 - Medications Medications: Current Medications Calcium/Vitamin D (Oscal-D 250 Mg-125 Units Tab) 1 tab PO DAILY [facility] Last Admin: 10/09/16 10:22 Dose: 1 tab Docusate Sodium (Colace) 100 mg PO DAILY [facility] Last Admin: 10/09/16 10:22 Dose: 100 mg Furosemide (Lasix) 40 mg PO DAILY [facility] Last Admin: 10/08/16 10:05 Dose: 40 mg Gabapentin (Neurontin) 100 mg PO HS [facility] PRN Reason: Protocol Last Admin: 10/09/16 21:38 Dose: 100 mg Heparin Sodium (Porcine) (Heparin) 5,000 units SC Q12 [facility] PRN Reason: Protocol Last Admin: 10/09/16 21:38 Dose: 5,000 units Hydralazine HCl (Apresoline) 50 mg PO TID [facility] Last Admin: 10/09/16 18:23 Dose: 50 mg Piperacillin Sod/Tazobactam Sod (Zosyn 2.25 Gm In 0.9% 100 Ml) 2.25 gm in 100 mls @ 100 mls/hr IVPB Q6 [facility] PRN Reason: Protocol Stop: 10/17/16 12:01 Last Admin: 10/10/16 05:44 Dose: 100 mls/hr Sodium Chloride (Sodium Chloride 0.45%) 1,000 mls @ 125 mls/hr IV .Q8H [facility] Last Admin: 10/09/16 12:00 Dose: 125 mls/hr Levothyroxine Sodium (Synthroid) 300 mcg PO 0600 [facility] Last Admin: 10/10/16 05:58 Dose: Not Given Lisinopril (Zestril) 10 mg PO DAILY [facility] Last Admin: 10/08/16 10:05 Dose: 10 mg Morphine Sulfate (Morphine) 2 mg IVP Q4H PRN PRN Reason: Pain, moderate (4-7) Last Admin: 10/08/16 13:15 Dose: 2 mg Morphine Sulfate (Morphine) 4 mg IVP Q4H PRN PRN Reason: Pain, severe (8-10) Ondansetron HCl (Zofran Inj) 4 mg IVP Q6H PRN PRN Reason: Nausea/Vomiting Pantoprazole Sodium (Protonix Inj) 40 mg IVP DAILY [facility] Last Admin: 10/09/16 10:22 Dose: 40 mg - Labs Labs: 10/10/16 06:15 10/10/16 06:15 PT 10.7 Seconds (9.9-11.8) 10/10/16 06:15 INR 0.99 (0.93-1.08) 10/10/16 06:15 APTT 25.6 Seconds (23.7-30.8) 10/10/16 06:15 - Constitutional Appears: No Acute Distress - Head Exam Head Exam: NORMAL INSPECTION - Eye Exam Eye Exam: EOMI, Normal appearance - ENT Exam ENT Exam: Mucous Membranes Moist - Neck Exam Neck Exam: Full ROM, Normal Inspection - Respiratory Exam Respiratory Exam: Clear to Ausculation Bilateral, NORMAL BREATHING PATTERN. absent: Accessory Muscle Use, Respiratory Distress - Cardiovascular Exam Cardiovascular Exam: REGULAR RHYTHM. absent: Bradycardia, Tachycardia - GI/Abdominal Exam GI & Abdominal Exam: Soft, Tenderness, Normal Bowel Sounds. absent: Distended, Diminished Bowel Sounds, Hypoactive Bowel Sounds, Pulsatile Mass Additional comments: two right incisions and umbilical incision. bandage covering no hematoma, bleeding, drainage - Neurological Exam Neurological Exam: Alert, Awake, Normal Gait - Psychiatric Exam Psychiatric exam: Normal Affect, Normal Mood - Skin Skin Exam: Dry, Normal Color, Warm Assessment and Plan - Assessment and Plan (Free Text) Assessment: 71 F ascending cholangitis, choledocholithiasis. PMH HTN, OA, bradycardia, thyroid cancer s/p thyroidectomy/parathyroidectomy. Cholecystectomy POD#0 Plan: 1) Abdominal pain with nausea and bilious emesis -cholecystitis vs choledocolithiasis vs cholangitis vs enteritis Diet: NPO -Febrile in ED, Tmax 103.8F, febrile temp persisting despite 1x 650mg PO tylenol , 800mg PO Motrin x1 given in ED -Mild leukocytosis of 11.6 -LFTs elevated; TBili 4.9, AST/ALT 224/288, ALP 216 -Abx coverage with cefepime and flagyl -Pain control with Morphine 2nq4 PRN, Zofran prn for nausea/emesis Ascending cholangitis s/p ERCP day 2 cholecystectomy POD#1 Poor Urine production F/u Bladder scan, if inadequate urine production, boyle insertion. Strict I/Os f/u repeat CMP at 14:00 BUN/Cr 35/2.3 Zosyn administration changed from Q6 to Q8. 2) Thyroid Ca s/p thyroidectomy -continue synthroid 3) HTN -continue home Lasix, Hydralazine, and Lisinopril FEN: NPO, NS 125cc/hr Access: Peripheral IV Consults: GI, Surgery Ppx: SCDs for DVT, Protonix for GI Discussed with Dr. Livan Blankenship Eng, DO PGY1 <Christiana Licona - Last Filed: 10/10/16 16:12> Objective - Vital Signs/Intake and Output Vital Signs (last 24 hours): Temp Pulse Resp BP Pulse Ox 98.0 F 82 18 172/110 H 95 10/10/16 12:40 10/10/16 12:40 10/10/16 12:40 10/10/16 12:44 10/10/16 12:40 Intake and Output: 10/10/16 10/10/16 06:59 18:59 Intake Total 940 0 Balance 940 0 - Medications Medications: Current Medications Benzocaine/Menthol (Cepacol Sore Throat) 1 lyn MT Q2H PRN PRN Reason: Sore Throat Calcium/Vitamin D (Oscal-D 250 Mg-125 Units Tab) 1 tab PO DAILY [facility] Last Admin: 10/10/16 11:51 Dose: Not Given Docusate Sodium (Colace) 100 mg PO DAILY [facility] Last Admin: 10/10/16 11:50 Dose: Not Given Furosemide (Lasix) 40 mg PO DAILY [facility] Last Admin: 10/10/16 12:44 Dose: 40 mg Gabapentin (Neurontin) 100 mg PO HS [facility] PRN Reason: Protocol Last Admin: 10/09/16 21:38 Dose: 100 mg Heparin Sodium (Porcine) (Heparin) 5,000 units SC Q12 [facility] PRN Reason: Protocol Last Admin: 10/09/16 21:38 Dose: 5,000 units Hydralazine HCl (Apresoline) 50 mg PO TID [facility] Last Admin: 10/10/16 11:49 Dose: Not Given Sodium Chloride (Sodium Chloride 0.45%) 1,000 mls @ 125 mls/hr IV .Q8H [facility] Last Admin: 10/10/16 12:51 Dose: 125 mls/hr Piperacillin Sod/Tazobactam Sod (Zosyn 3.375 In Ns 100ml) 100 mls @ 200 mls/hr IVPB Q6 [facility] PRN Reason: Protocol Stop: 10/17/16 12:01 Last Admin: 10/10/16 12:44 Dose: 200 mls/hr Levothyroxine Sodium (Synthroid) 300 mcg PO 0600 [facility] Last Admin: 10/10/16 05:58 Dose: Not Given Lisinopril (Zestril) 10 mg PO DAILY [facility] Last Admin: 10/10/16 12:46 Dose: 10 mg Morphine Sulfate (Morphine) 2 mg IVP Q4H PRN PRN Reason: Pain, moderate (4-7) Last Admin: 10/08/16 13:15 Dose: 2 mg Morphine Sulfate (Morphine) 4 mg IVP Q4H PRN PRN Reason: Pain, severe (8-10) Ondansetron HCl (Zofran Inj) 4 mg IVP Q6H PRN PRN Reason: Nausea/Vomiting Oxycodone/Acetaminophen (Percocet 5/325 Mg Tab) 1 tab PO Q4H PRN PRN Reason: Pain, moderate (4-7) Stop: 10/13/16 09:41 Last Admin: 10/10/16 11:35 Dose: 1 tab Pantoprazole Sodium (Protonix Inj) 40 mg IVP DAILY [facility] Last Admin: 10/10/16 11:51 Dose: Not Given - Labs Labs: 10/10/16 06:15 10/10/16 06:15 PT 10.7 Seconds (9.9-11.8) 10/10/16 06:15 INR 0.99 (0.93-1.08) 10/10/16 06:15 APTT 25.6 Seconds (23.7-30.8) 10/10/16 06:15 Attending/Attestation - Attestation I have personally seen and examined this patient.: Yes I have fully participated in the care of the patient.: Yes I have reviewed all pertinent clinical information, including history, physical exam and plan: Yes Notes (Text): 10/10/16 16:05 attending note; Patient seen and examined with resident. Patient is a 71-year-old Turkish speaking female admitted with abdominal pain. Found to have acute cholangitis. Status post ERCP stone removal with sphincterotomy. s/p lap raymundo today. tolerating diet. LFTs improving. on IV zosyn. acute renal failure;resolved. possible dc home tomorrow if stable. follow up with PMD DR. Hernandez.
--- NOTE | 2016-10-10 08:30 | NM ---
PROCEDURE: Nuclear Medicine Hepatobiliary Scan HISTORY: r/o acute cholecystitis COMPARISON: 10/07/2016. CT abdomen and pelvis. TECHNIQUE: 6.1 mCi of technetium 99m Mebrofenin was administered intravenously. Planar images of the abdomen were obtained at 5 min intervals to 60 mins. Delayed images were also obtained. FINDINGS: LIVER: Timely and homogenous uptake. COMMON BILE DUCT: 15 minutes. GALLBLADDER: Not identified at 05:00. There is faint uptake in the vicinity of the gallbladder fossa. However this appears be within: And adjacent small bowel. SMALL BOWEL: Identified at 30 mins. IMPRESSION: Positive Hepatobiliary Scan. The cystic duct is occluded consistent with acute cholecystitis. .
[2016-10-10] MEDS ORDERED: Neostigmine Methylsulfate 3mg/3ml Syringe IV ONE (08:52)
--- NOTE | 2016-10-10 09:36 | PCM.SURG1 ---
Surgeon's Initial Post Op Note - Surgeon's Notes Surgeon: Dr Pastor [facility] Informatician: Dr Yeh PGY2, Dr Phillips PGY3, Hayder MS3 Pre-Operative Diagnosis: acute cholecystitis Operative Findings: see report Post-Operative Diagnosis: as above Operation Performed: laparoscopic cholecystectomy Specimen/Specimens Removed: gallbladder Estimated Blood Loss: EBL {In ML}: 20 Blood Products Given: N/A Drains Used: No Drains Post-Op Condition: Good Date of Surgery/Procedure: 10/10/16 Time of Surgery/Procedure: 09:36
[2016-10-10] MEDS ORDERED: Sodium Chloride 0.9% 1,000 ML IV SCH (09:45)
[2016-10-10] MEDS: HYDROmorphone 0.5 mg/0.5 ml ISec IVP PRN ×3 (10:05→10:55)
[2016-10-10] MEDS ORDERED: HYDROmorphone 0.5 mg/0.5 ml ISec ONE ×2 (10:24→10:56)
[2016-10-10] MEDS: Oxycodone/Acetaminophen 5/325 mg Tab PO PRN ×2 (11:35→17:19)
[2016-10-10] MEDS ORDERED: Oxycodone/Acetaminophen 5/325 mg Tab ONE (11:38)
[2016-10-10] MEDS: Calcium-Vit D 250 mg-125 Units Tab UD PO SCH (11:51)
[2016-10-10] MEDS: Piperacillin/Tazobact 3.375 gm 100 ML IVPB SCH ×2 (12:44→17:08)
[2016-10-10] MEDS: Sodium Chloride 0.45% 1,000 ML IV SCH (12:51)
--- NOTE | 2016-10-10 13:16 | CP.PCM.PN ---
Subjective - Date & Time of Evaluation Date of Evaluation: 10/10/16 Time of Evaluation: 13:13 - Subjective Subjective: PGY-2 Nephrology progress note for Dr. Parra Patient seen and examined at bedside. Patient went to OR this morning for laparoscopic cholecstectomy . Patient is complaining of abd pain around incision site. Denies chest pain, fever, chill, n/v. Objective - Vital Signs/Intake and Output Vital Signs (last 24 hours): Temp Pulse Resp BP Pulse Ox 98.6 F 71 15 172/110 H 98 10/10/16 11:38 10/10/16 11:38 10/10/16 11:38 10/10/16 12:44 10/10/16 11:38 Intake and Output: 10/10/16 10/10/16 06:59 18:59 Intake Total 940 0 Balance 940 0 - Medications Medications: Current Medications Calcium/Vitamin D (Oscal-D 250 Mg-125 Units Tab) 1 tab PO DAILY [facility] Last Admin: 10/10/16 11:51 Dose: Not Given Docusate Sodium (Colace) 100 mg PO DAILY [facility] Last Admin: 10/10/16 11:50 Dose: Not Given Furosemide (Lasix) 40 mg PO DAILY [facility] Last Admin: 10/10/16 12:44 Dose: 40 mg Gabapentin (Neurontin) 100 mg PO HS NORM PRN Reason: Protocol Last Admin: 10/09/16 21:38 Dose: 100 mg Heparin Sodium (Porcine) (Heparin) 5,000 units SC Q12 NORM PRN Reason: Protocol Last Admin: 10/09/16 21:38 Dose: 5,000 units Hydralazine HCl (Apresoline) 50 mg PO TID NORM Last Admin: 10/10/16 11:49 Dose: Not Given Sodium Chloride (Sodium Chloride 0.45%) 1,000 mls @ 125 mls/hr IV .Q8H NORM Last Admin: 10/10/16 12:51 Dose: 125 mls/hr Piperacillin Sod/Tazobactam Sod (Zosyn 3.375 In Ns 100ml) 100 mls @ 200 mls/hr IVPB Q6 NORM PRN Reason: Protocol Stop: 10/17/16 12:01 Last Admin: 10/10/16 12:44 Dose: 200 mls/hr Levothyroxine Sodium (Synthroid) 300 mcg PO 0600 [facility] Last Admin: 10/10/16 05:58 Dose: Not Given Lisinopril (Zestril) 10 mg PO DAILY [facility] Last Admin: 10/10/16 12:46 Dose: 10 mg Morphine Sulfate (Morphine) 2 mg IVP Q4H PRN PRN Reason: Pain, moderate (4-7) Last Admin: 10/08/16 13:15 Dose: 2 mg Morphine Sulfate (Morphine) 4 mg IVP Q4H PRN PRN Reason: Pain, severe (8-10) Ondansetron HCl (Zofran Inj) 4 mg IVP Q6H PRN PRN Reason: Nausea/Vomiting Oxycodone/Acetaminophen (Percocet 5/325 Mg Tab) 1 tab PO Q4H PRN PRN Reason: Pain, moderate (4-7) Stop: 10/13/16 09:41 Last Admin: 10/10/16 11:35 Dose: 1 tab Pantoprazole Sodium (Protonix Inj) 40 mg IVP DAILY [facility] Last Admin: 10/10/16 11:51 Dose: Not Given - Labs Labs: 10/10/16 06:15 10/10/16 06:15 PT 10.7 Seconds (9.9-11.8) 10/10/16 06:15 INR 0.99 (0.93-1.08) 10/10/16 06:15 APTT 25.6 Seconds (23.7-30.8) 10/10/16 06:15 - Constitutional Appears: Well, No Acute Distress - Head Exam Head Exam: NORMAL INSPECTION - Eye Exam Eye Exam: Normal appearance - ENT Exam ENT Exam: Mucous Membranes Moist - Respiratory Exam Respiratory Exam: Clear to Ausculation Bilateral, NORMAL BREATHING PATTERN. absent: Decreased Breath Sounds, Rhonchi, Wheezes, Respiratory Distress - Cardiovascular Exam Cardiovascular Exam: REGULAR RHYTHM, +S1, +S2. absent: Tachycardia, Murmur - GI/Abdominal Exam GI & Abdominal Exam: Soft, Tenderness. absent: Distended, Firm, Normal Bowel Sounds - Extremities Exam Extremities Exam: Normal Inspection. absent: Pedal Edema - Neurological Exam Neurological Exam: Alert, Awake, Oriented x3 - Skin Skin Exam: Dry, Intact, Normal Color, Warm Assessment and Plan - Assessment and Plan (Free Text) Assessment: 71 [place] female with PMH of HTN, OA, bradycardia, thyroid cancer s/p thyroidectomy/parathyroidectomy presenting with sepsis 2/2 to acute cholangitis complicated by MONTEZ. s/p laparoscopic cholecstectomy. Plan: 1. MONTEZ - pre carolyn possible due to sepsis and hypotenison - creatinine has improved to 1.2 - cont IVF - continue renally dose abx for cr less then 30 - will reassess for diuretic use 2. sepsis 2/2 acute cholangitis - s/p ERCP with sphincterotomy and stone extraction. - cont renal dose zosyn - s/p laparoscopic cholecstectomy POD #0 - surgery following 3. HTN - cont hydralazine to 50mg TID - cont to hold lisinopril - cont pain management to help control BP 4. hypocalemia - will check PTH and vit D - cont calcium carbonate 5. hypokalemia - improved from yesterday - will continue to monitor 6. acidosis - resolving, will cont to monitor 7. hypothyriodism - cont levothyroxine
[2016-10-10] MEDS: Benzocaine/Menthol (Cepacol) Lozenge MT PRN (17:06)
--- NOTE | 2016-10-10 17:33 | CP.PCM.PN ---
Subjective - Date & Time of Evaluation Date of Evaluation: 10/10/16 Time of Evaluation: 11:35 - Subjective Subjective: Comfortable, no fevers, less abdominal pain. Objective - Vital Signs/Intake and Output Vital Signs (last 24 hours): Temp Pulse Resp BP Pulse Ox 98.6 F 84 17 187/96 H 97 10/10/16 09:38 10/10/16 09:38 10/10/16 09:38 10/10/16 09:38 10/10/16 09:38 Intake and Output: 10/10/16 10/10/16 06:59 18:59 Intake Total 940 0 Balance 940 0 - Medications Medications: Current Medications Calcium/Vitamin D (Oscal-D 250 Mg-125 Units Tab) 1 tab PO DAILY [facility] Last Admin: 10/09/16 10:22 Dose: 1 tab Docusate Sodium (Colace) 100 mg PO DAILY [facility] Last Admin: 10/09/16 10:22 Dose: 100 mg Furosemide (Lasix) 40 mg PO DAILY [facility] Last Admin: 10/08/16 10:05 Dose: 40 mg Gabapentin (Neurontin) 100 mg PO HS NORM PRN Reason: Protocol Last Admin: 10/09/16 21:38 Dose: 100 mg Heparin Sodium (Porcine) (Heparin) 5,000 units SC Q12 NORM PRN Reason: Protocol Last Admin: 10/09/16 21:38 Dose: 5,000 units Hydralazine HCl (Apresoline) 50 mg PO TID [facility] Last Admin: 10/09/16 18:23 Dose: 50 mg Hydromorphone HCl (Dilaudid) 0.5 mg IVP Q15M PRN PRN Reason: Pain, moderate (4-7) Sodium Chloride (Sodium Chloride 0.45%) 1,000 mls @ 125 mls/hr IV .Q8H [facility] Last Admin: 10/09/16 12:00 Dose: 125 mls/hr Sodium Chloride (Sodium Chloride 0.9%) 1,000 mls @ 75 mls/hr IV .[id number] [facility] Stop: 10/10/16 11:46 Piperacillin Sod/Tazobactam Sod (Zosyn 3.375 In Ns 100ml) 100 mls @ 200 mls/hr IVPB Q6 NORM PRN Reason: Protocol Stop: 10/17/16 12:01 Levothyroxine Sodium (Synthroid) 300 mcg PO 0600 [facility] Last Admin: 10/10/16 05:58 Dose: Not Given Lisinopril (Zestril) 10 mg PO DAILY [facility] Last Admin: 10/08/16 10:05 Dose: 10 mg Morphine Sulfate (Morphine) 2 mg IVP Q4H PRN PRN Reason: Pain, moderate (4-7) Last Admin: 10/08/16 13:15 Dose: 2 mg Morphine Sulfate (Morphine) 4 mg IVP Q4H PRN PRN Reason: Pain, severe (8-10) Ondansetron HCl (Zofran Inj) 4 mg IVP Q6H PRN PRN Reason: Nausea/Vomiting Oxycodone/Acetaminophen (Percocet 5/325 Mg Tab) 1 tab PO Q4H PRN PRN Reason: Pain, moderate (4-7) Stop: 10/13/16 09:41 Pantoprazole Sodium (Protonix Inj) 40 mg IVP DAILY [facility] Last Admin: 10/09/16 10:22 Dose: 40 mg - Labs Labs: 10/10/16 06:15 10/10/16 06:15 PT 10.7 Seconds (9.9-11.8) 10/10/16 06:15 INR 0.99 (0.93-1.08) 10/10/16 06:15 APTT 25.6 Seconds (23.7-30.8) 10/10/16 06:15 - Constitutional Appears: Non-toxic, No Acute Distress - Head Exam Head Exam: NORMAL INSPECTION - ENT Exam ENT Exam: Mucous Membranes Moist - Neck Exam Neck Exam: absent: Meningismus - Respiratory Exam Respiratory Exam: Decreased Breath Sounds - Cardiovascular Exam Cardiovascular Exam: +S1, +S2 - GI/Abdominal Exam GI & Abdominal Exam: Soft. absent: Tenderness Assessment and Plan - Assessment and Plan (Free Text) Plan: Assessment Sepsis due to acute cholangitis S/P ERCP, stone extraction and sphincterotomy POD #3 acute renal failure, etiology to be determined HTN thyroid cancer S/P thyroidectomy and parathyroidectomy obesity with BMI 30 Plan continue Zosyn (day 4 today); blood cx are negative follow up Renal evaluation and recommendations regarding renal failure will continue to monitor clinically
[2016-10-11] MEDS: Piperacillin/Tazobact 3.375 gm 100 ML IVPB SCH ×3 (00:15→13:12)
--- NOTE | 2016-10-11 01:48 | OP ---
PROCEDURE DATE: 10/10/2016 SURGEON: Dr. Pastor. GRAPE CRUSHER: Dr. Yeh and Dr. Phillips. TYPE OF ANESTHESIA: General; Dr. Joni Ge. PREOPERATIVE DIAGNOSIS: Acute cholecystitis. POSTOPERATIVE DIAGNOSIS: Acute cholecystitis. PROCEDURE: Laparoscopic cholecystectomy. ESTIMATED BLOOD LOSS: 30 mL. DESCRIPTION OF OPERATION: With the patient in the supine position under adequate general anesthesia. The abdomen was prepped and draped in the usual sterile manner. Veress needle puncture was performed at the umbilicus with insufflation to 15 cm of water pressure of CO2 and a 10 mm laparoscopic trocar was inserted via an infraumbilical incision. Under direct vision, additional trocars were inserted in the epigastrium and right costal margin. The right upper quadrant was visualized. There was a large amount of omentum adhering to the area of the liver edge and the gallbladder and the portions that were adhering to the liver were taken down sharply with the remainder being taken down bluntly to expose the gallbladder fundus. The gallbladder fundus was grasped and alleviated and omental adhesions were taken down bluntly to expose the infundibulum. The infundibulum was grasped and retracted laterally. There was a significant inflammatory response around the gallbladder neck in the area of the cystic duct consistent with the patient's recent ERCP for choledocholithiasis and cholangitis and overlying inflammatory tissue was carefully taken down to expose the cystic duct. The cystic duct was cleared down toward the junction with the common bile duct and viewed anteriorly and posteriorly to further develop the window between the cystic duct and the gallbladder and the cystic duct was then triply clipped and divided. The cystic artery was then identified and dissected. The cystic artery was triply clipped and divided and the gallbladder was dissected free of the liver bed using electrocautery. The liver bed also markedly thickened consistent with recent inflammation. The liver bed was examined for hemostasis and the dissection was completed. The gallbladder was placed in a specimen retrieval bag and removed via the umbilical port site. The right upper quadrant was irrigated and suctioned. Pneumoperitoneum was relieved and the trocars removed. The umbilical port site was closed with a [id number] fascial suture 0-Vicryl. All incisions were closed with 4-0 Monocryl subcuticular sutures and Steri-Strip. Dry sterile dressings were applied. The patient tolerated the procedure well and transferred to the recovery room in stable condition. Chilango Pastor MD
[2016-10-11] MEDS: Oxycodone/Acetaminophen 5/325 mg Tab PO PRN (04:08)
[2016-10-11] MEDS: Levothyroxine 150 MCG TAB PO SCH (05:40)
[2016-10-11 06:16] LABS: BASO # 0.04 K/mm3 (0.0-2.0); BASO % 0.5 % (0.0-3.0); EOS # 0.2 (0.0-0.7); EOS % 2.7 % (1.5-5.0); GRAN # 4.61 (1.4-6.5); GRAN % 56.6 % (50.0-68.0); HEMOGLOBIN 9.2 g/dL (12.0-16.0); MEAN CELL VOLUME 75.5 fl (80.0-105.0); MEAN CORPUSCULAR HGB CONC 33.1 g/dl (31.0-37.0); MEAN PLATELET VOLUME 10.4 fl (7.0-11.0); MONO # 1.3 (0.1-0.6); MONO % 16.2 % (1.0-6.0); PLATELET COUNT 221 10^3/uL (120.0-450.0); RBC 3.68 10^6/uL (3.5-6.1); RED CELL DISTRIBUTION WIDTH 16.1 % (11.5-14.5); WHITE BLOOD COUNT 8.1 10^3/ul (4.5-11.0)
[2016-10-11 06:48] LABS: ALBUMIN 3.1 g/dL (3.0-4.8); CALCIUM 7.3 mg/dL (8.4-10.5)
[2016-10-11] MEDS ORDERED: Potassium Chloride 20 mEq ER Tab PO ONE (07:06)
--- NOTE | 2016-10-11 07:10 | CP.PCM.PN ---
Subjective - Date & Time of Evaluation Date of Evaluation: 10/11/16 Time of Evaluation: 07:07 - Subjective Subjective: Gen Sx: Dr Pastor Pt S&E. NAEO. Tolerating regular diet. Has been OOB to chair. Using incentive spirometer. Denies N/V. Pain improved, limited to incision sites. Plan of care communicated with daughter last night. Pt states she is ready to go home. Objective - Vital Signs/Intake and Output Vital Signs (last 24 hours): Temp Pulse Resp BP Pulse Ox 98.4 F 68 20 174/90 H 95 10/10/16 16:00 10/10/16 16:00 10/10/16 16:00 10/10/16 17:06 10/10/16 16:00 Intake and Output: 10/11/16 10/11/16 06:59 18:59 Intake Total 720 Balance 720 - Medications Medications: Current Medications Benzocaine/Menthol (Cepacol Sore Throat) 1 lyn MT Q2H PRN PRN Reason: Sore Throat Last Admin: 10/10/16 17:06 Dose: 1 lyn Calcium/Vitamin D (Oscal-D 250 Mg-125 Units Tab) 1 tab PO DAILY [facility] Last Admin: 10/10/16 11:51 Dose: Not Given Docusate Sodium (Colace) 100 mg PO DAILY [facility] Last Admin: 10/10/16 11:50 Dose: Not Given Furosemide (Lasix) 40 mg PO DAILY [facility] Last Admin: 10/10/16 12:44 Dose: 40 mg Gabapentin (Neurontin) 100 mg PO HS NORM PRN Reason: Protocol Last Admin: 10/10/16 21:19 Dose: 100 mg Heparin Sodium (Porcine) (Heparin) 5,000 units SC Q12 NORM PRN Reason: Protocol Last Admin: 10/09/16 21:38 Dose: 5,000 units Hydralazine HCl (Apresoline) 50 mg PO TID N[facility] Last Admin: 10/10/16 17:06 Dose: 50 mg Piperacillin Sod/Tazobactam Sod (Zosyn 3.375 In Ns 100ml) 100 mls @ 200 mls/hr IVPB Q6 NORM PRN Reason: Protocol Stop: 10/17/16 12:01 Last Admin: 10/11/16 06:01 Dose: 200 mls/hr Levothyroxine Sodium (Synthroid) 300 mcg PO 0600 [facility] Last Admin: 10/11/16 05:40 Dose: 300 mcg Lisinopril (Zestril) 10 mg PO DAILY [facility] Last Admin: 10/10/16 12:46 Dose: 10 mg Morphine Sulfate (Morphine) 2 mg IVP Q4H PRN PRN Reason: Pain, moderate (4-7) Last Admin: 10/08/16 13:15 Dose: 2 mg Morphine Sulfate (Morphine) 4 mg IVP Q4H PRN PRN Reason: Pain, severe (8-10) Ondansetron HCl (Zofran Inj) 4 mg IVP Q6H PRN PRN Reason: Nausea/Vomiting Oxycodone/Acetaminophen (Percocet 5/325 Mg Tab) 1 tab PO Q4H PRN PRN Reason: Pain, moderate (4-7) Stop: 10/13/16 09:41 Last Admin: 10/11/16 04:08 Dose: 1 tab Pantoprazole Sodium (Protonix Inj) 40 mg IVP DAILY [facility] Last Admin: 10/10/16 11:51 Dose: Not Given Potassium Chloride (K-Dur 20 Meq Er Tab) 40 meq PO ONCE ONE Stop: 10/11/16 07:07 - Labs Labs: 10/11/16 05:20 10/11/16 05:20 PT 10.7 Seconds (9.9-11.8) 10/10/16 06:15 INR 0.99 (0.93-1.08) 10/10/16 06:15 APTT 25.6 Seconds (23.7-30.8) 10/10/16 06:15 - Constitutional Appears: Non-toxic, No Acute Distress - Eye Exam Eye Exam: absent: Scleral icterus - ENT Exam ENT Exam: Mucous Membranes Moist - Respiratory Exam Respiratory Exam: absent: Accessory Muscle Use, Respiratory Distress - Cardiovascular Exam Cardiovascular Exam: REGULAR RHYTHM. absent: Tachycardia - GI/Abdominal Exam GI & Abdominal Exam: Soft, Tenderness (post-surgical and appropriate). absent: Distended Additional comments: incisions c/d/i - Rectal Exam Rectal Exam: absent: Deferred - Extremities Exam Extremities Exam: absent: Calf Tenderness, Pedal Edema - Neurological Exam Neurological Exam: Alert, Awake, Oriented x3 - Psychiatric Exam Psychiatric exam: Normal Affect, Normal Mood - Skin Skin Exam: Normal Color, Warm Assessment and Plan - Assessment and Plan (Free Text) Assessment: 71F POD#1 s/p laparoscopic cholecystectomy Plan: cont reg diet will transition to PO pain meds pt clear for D/C from surgical standpoint follow up in office in 1 week would refrain from travel until cleared at office visit (discussed with daughter ) d/w Dr Dawit Phillips, PGY3
[2016-10-11] MEDS ORDERED: Potassium Chloride 40 mEq/30 ml LIQ UD PO STA (07:39)
--- NOTE | 2016-10-11 08:07 | CP.PCM.PN ---
Subjective - Date & Time of Evaluation Date of Evaluation: 10/11/16 Time of Evaluation: 08:04 - Subjective Subjective: PGY-2 Nephrology consult note for Dr. Parra Patient seen and examined at bedside. No acute distress. Nurse reports no acute events overnight. Patient reports abdominal pain at the surgical sites. She is tolerating diet. Denies fever, chills, sob, chest pain, n/v. Objective - Vital Signs/Intake and Output Vital Signs (last 24 hours): Temp Pulse Resp BP Pulse Ox 98.4 F 68 20 174/90 H 95 10/10/16 16:00 10/10/16 16:00 10/10/16 16:00 10/10/16 17:06 10/10/16 16:00 Intake and Output: 10/11/16 10/11/16 06:59 18:59 Intake Total 720 Balance 720 - Medications Medications: Current Medications Benzocaine/Menthol (Cepacol Sore Throat) 1 lyn MT Q2H PRN PRN Reason: Sore Throat Last Admin: 10/10/16 17:06 Dose: 1 lyn Calcium/Vitamin D (Oscal-D 250 Mg-125 Units Tab) 1 tab PO DAILY [facility] Last Admin: 10/10/16 11:51 Dose: Not Given Docusate Sodium (Colace) 100 mg PO DAILY [facility] Last Admin: 10/10/16 11:50 Dose: Not Given Furosemide (Lasix) 40 mg PO DAILY [facility] Last Admin: 10/10/16 12:44 Dose: 40 mg Gabapentin (Neurontin) 100 mg PO HS NORM PRN Reason: Protocol Last Admin: 10/10/16 21:19 Dose: 100 mg Heparin Sodium (Porcine) (Heparin) 5,000 units SC Q12 NORM PRN Reason: Protocol Last Admin: 10/09/16 21:38 Dose: 5,000 units Hydralazine HCl (Apresoline) 50 mg PO TID [facility] Last Admin: 10/10/16 17:06 Dose: 50 mg Piperacillin Sod/Tazobactam Sod (Zosyn 3.375 In Ns 100ml) 100 mls @ 200 mls/hr IVPB Q6 NORM PRN Reason: Protocol Stop: 10/17/16 12:01 Last Admin: 10/11/16 06:01 Dose: 200 mls/hr Levothyroxine Sodium (Synthroid) 300 mcg PO 0600 [facility] Last Admin: 10/11/16 05:40 Dose: 300 mcg Lisinopril (Zestril) 10 mg PO DAILY [facility] Last Admin: 10/10/16 12:46 Dose: 10 mg Morphine Sulfate (Morphine) 2 mg IVP Q4H PRN PRN Reason: Pain, moderate (4-7) Last Admin: 10/08/16 13:15 Dose: 2 mg Morphine Sulfate (Morphine) 4 mg IVP Q4H PRN PRN Reason: Pain, severe (8-10) Ondansetron HCl (Zofran Inj) 4 mg IVP Q6H PRN PRN Reason: Nausea/Vomiting Oxycodone/Acetaminophen (Percocet 5/325 Mg Tab) 1 tab PO Q4H PRN PRN Reason: Pain, moderate (4-7) Stop: 10/13/16 09:41 Last Admin: 10/11/16 04:08 Dose: 1 tab Pantoprazole Sodium (Protonix Inj) 40 mg IVP DAILY [facility] Last Admin: 10/10/16 11:51 Dose: Not Given - Labs Labs: 10/11/16 05:20 10/11/16 05:20 PT 10.7 Seconds (9.9-11.8) 10/10/16 06:15 INR 0.99 (0.93-1.08) 10/10/16 06:15 APTT 25.6 Seconds (23.7-30.8) 10/10/16 06:15 - Constitutional Appears: Well, No Acute Distress - Head Exam Head Exam: ATRAUMATIC, NORMOCEPHALIC - Eye Exam Eye Exam: Normal appearance - ENT Exam ENT Exam: Mucous Membranes Moist - Respiratory Exam Respiratory Exam: Clear to Ausculation Bilateral, NORMAL BREATHING PATTERN. absent: Decreased Breath Sounds, Rales, Rhonchi, Wheezes, Respiratory Distress - Cardiovascular Exam Cardiovascular Exam: REGULAR RHYTHM, +S1, +S2. absent: Tachycardia, Murmur - GI/Abdominal Exam GI & Abdominal Exam: Soft, Tenderness, Normal Bowel Sounds. absent: Distended, Firm - Extremities Exam Extremities Exam: Normal Inspection. absent: Pedal Edema - Neurological Exam Neurological Exam: Alert, Awake, Oriented x3 - Skin Skin Exam: Dry, Intact, Normal Color, Warm Assessment and Plan - Assessment and Plan (Free Text) Assessment: 71 [place] female with PMH of HTN, OA, bradycardia, thyroid cancer s/p thyroidectomy/parathyroidectomy presenting with sepsis 2/2 to acute cholangitis complicated by MONTEZ. s/p laparoscopic cholecstectomy POD#1. Plan: 1. MONTEZ - pre renal possible due to sepsis and hypotenison - creatinine has improved to 1.2 - continue abx, zosyn - consider repeat urine protein and creatinine at baseline 2. sepsis 2/2 acute cholangitis - s/p ERCP with sphincterotomy and stone extraction. - cont abx, zosyn - s/p laparoscopic cholecstectomy POD #1 - surgery following 3. HTN - cont hydralazine to 50mg TID - cont home med lisinopril and lasix - cont pain management to help control BP 4. hypocalemia - PTH wnl - vit D low will start ergocalciferol weekly - increase calcium carbonate to BID 5. hypokalemia - today potassium is 3.1, replete - will continue to monitor 6. acidosis - resolving, will cont to monitor 7. hypothyriodism - cont levothyroxine
[2016-10-11 08:47] VITALS: RESP 22; TEMP 98.2; O2SAT 94
[2016-10-11] MEDS: Calcium-Vit D 250 mg-125 Units Tab UD PO SCH (09:20)
[2016-10-11] MEDS: Benzocaine/Menthol (Cepacol) Lozenge MT PRN (09:22)
--- NOTE | 2016-10-11 11:00 | RAD ---
PROCEDURE: ERCP HISTORY: ? CBD OBST COMPARISON: None TECHNIQUE: Standard protocol for this study/examination. FINDINGS: Total fluoroscopic time (continuous mode) utilized during the procedure: 2 minutes 34 seconds. IMPRESSION: Submitted images from the current procedure: 2.0.
[2016-10-11] MEDS ORDERED: Ergocalciferol 50,000 Intl Units Cap PO SCH (12:15)
--- NOTE | 2016-10-11 12:45 | CP.PCM.DIS ---
<LashonPattie - Last Filed: 10/11/16 12:42> Provider - Provider Date of Admission: 10/07/16 03:09 Attending physician: Christiana Licona MD Consults: Dr. Rene Pastor Surgery Time Spent in preparation of Discharge (in minutes): 30 Hospital Course - Lab Results Lab Results: Micro Results 10/07/16 17:55 Naris MRSA Culture (Admit) - Final MRSA NOT DETECTED 10/07/16 04:45 Urine Urine Culture - Final No Growth (<1,000 CFU/ML) Most Recent Lab Values WBC 8.1 10^3/ul (4.5-11.0) 10/11/16 05:20 RBC 3.68 10^6/uL (3.5-6.1) 10/11/16 05:20 Hgb 9.2 g/dL (12.0-16.0) L 10/11/16 05:20 Hct 27.8 % (36.0-48.0) L 10/11/16 05:20 MCV 75.5 fl (80.0-105.0) L 10/11/16 05:20 MCH 25.0 pg (25.0-35.0) 10/11/16 05:20 MCHC 33.1 g/dl (31.0-37.0) 10/11/16 05:20 RDW 16.1 % (11.5-14.5) H 10/11/16 05:20 Plt Count 221 10^3/uL (120.0-450.0) 10/11/16 05:20 MPV 10.4 fl (7.0-11.0) 10/11/16 05:20 Gran % 56.6 % (50.0-68.0) 10/11/16 05:20 Lymph % (Auto) 24.0 % (22.0-35.0) 10/11/16 05:20 Thayer % (Auto) 16.2 % (1.0-6.0) H 10/11/16 05:20 Eos % (Auto) 2.7 % (1.5-5.0) 10/11/16 05:20 Baso % (Auto) 0.5 % (0.0-3.0) 10/11/16 05:20 Gran # 4.61 (1.4-6.5) 10/11/16 05:20 Lymph # 2.0 (1.2-3.4) 10/11/16 05:20 Thayer # 1.3 (0.1-0.6) H 10/11/16 05:20 Eos # 0.2 (0.0-0.7) 10/11/16 05:20 Baso # 0.04 K/mm3 (0.0-2.0) 10/11/16 05:20 PT 10.7 Seconds (9.9-11.8) 10/10/16 06:15 INR 0.99 (0.93-1.08) 10/10/16 06:15 APTT 25.6 Seconds (23.7-30.8) 10/10/16 06:15 pO2 225 mm/Hg (30-55) H 10/06/16 23:30 VBG pH 7.42 (7.32-7.43) 10/06/16 23:30 VBG pCO2 41.0 (40-60) 10/06/16 23:30 VBG HCO3 26.6 mmol/l (21-28) 10/06/16 23:30 VBG Total CO2 27.9 mmol.L (22-28) 10/06/16 23:30 VBG O2 Sat (Calc) 98.8 % (40-65) H 10/06/16 23:30 VBG Base Excess 1.9 mmol/L (0.0-2.0) 10/06/16 23:30 VBG Potassium 4.5 mmol/L (3.6-5.2) 10/06/16 23:30 Sodium 142.0 mmol/L (132-148) 10/06/16 23:30 Chloride 106.0 mmol/L (98-107) 10/06/16 23:30 Glucose 127 mg/dl (65-105) H 10/06/16 23:30 Lactate 1.3 mmol/L (0.7-2.1) 10/06/16 23:30 FiO2 21.0 % 10/06/16 23:30 Sodium 141 mmol/L (132-148) 10/11/16 05:20 Potassium 3.1 mmol/L (3.6-5.0) L 10/11/16 05:20 Chloride 106 mmol/L (95-110) 10/11/16 05:20 Carbon Dioxide 25 mmol/L (21-33) 10/11/16 05:20 Anion Gap 13 (10-20) 10/11/16 05:20 BUN 25 mg/dL (7-21) H 10/11/16 05:20 Creatinine 1.2 mg/dL (0.5-1.4) 10/11/16 05:20 Est GFR ( Amer) 54 10/11/16 05:20 Est GFR (Non-Af Amer) 44 10/11/16 05:20 POC Glucose (mg/dL) 140 mg/dL (65-110) H 10/06/16 23:21 Random Glucose 105 mg/dL (70-110) 10/11/16 05:20 Lactic Acid 1.8 mmol/L (0.7-2.1) 10/07/16 17:20 Calcium 7.3 mg/dL (8.4-10.5) L 10/11/16 05:20 Magnesium 1.9 mg/dL (1.7-2.2) 10/10/16 06:15 Total Bilirubin 1.4 mg/dL (0.2-1.3) H 10/11/16 05:20 Direct Bilirubin 3.8 mg/dL (0.0-0.4) H 10/07/16 11:10 AST 73 U/L (15-39) H 10/11/16 05:20 ALT 127 U/L (7-56) H 10/11/16 05:20 Alkaline Phosphatase 310 U/L (38-133) H 10/11/16 05:20 Troponin I 0.02 ng/mL D 10/07/16 12:10 Total Protein 6.3 g/dL (5.8-8.3) 10/11/16 05:20 Albumin 3.1 g/dL (3.0-4.8) 10/11/16 05:20 Globulin 3.1 gm/dL 10/11/16 05:20 Albumin/Globulin Ratio 1.0 (1.1-1.8) L 10/11/16 05:20 Lipase 131 U/L (23-300) 10/06/16 23:30 25-OH Vitamin D Total 17.0 NG/ML (30.0-100.0) L 10/09/16 16:25 PTH Intact Whole Molec 55 pg/mL (14-64) 10/09/16 16:25 Venous Blood Potassium 4.5 mmol/L (3.6-5.2) 10/06/16 23:30 Urine Color Yellow (YELLOW) 10/07/16 04:45 Urine Appearance Sl cloudy (CLEAR) 10/07/16 04:45 Urine pH 7.0 (4.7-8.0) 10/07/16 04:45 Ur Specific Jensen 1.025 (1.005-1.035) 10/07/16 04:45 Urine Protein 100 mg/dL (<30 mg/dL) H 10/07/16 04:45 Urine Glucose (UA) Negative mg/dL (NEGATIVE) 10/07/16 04:45 Urine Ketones Negative mg/dL (NEGATIVE) 10/07/16 04:45 Urine Blood Small (NEGATIVE) H 10/07/16 04:45 Urine Nitrate Negative (NEGATIVE) 10/07/16 04:45 Urine Bilirubin Negative (NEGATIVE) 10/07/16 04:45 Urine Urobilinogen 0.2 E.U./dL (<1 E.U./dL) 10/07/16 04:45 Ur Leukocyte Esterase Negative Abram/uL (NEGATIVE) 10/07/16 04:45 Urine RBC 2 - 5 /hpf (0-2) 10/07/16 04:45 Urine WBC 0 - 2 /hpf (0-6) 10/07/16 04:45 Ur Epithelial Cells 0 - 2 /hpf (0-5) 10/07/16 04:45 Urine Bacteria Rare (NEG) 10/07/16 04:45 Ur Random Creatinine 102 mg/dL 10/08/16 16:54 Ur Random Sodium 46 meq/L 10/08/16 16:54 Ur Random Potassium 50.2 meq/L 10/08/16 16:54 Blood Type A POSITIVE 10/09/16 18:54 Blood Type Confirm A POSITIVE 10/09/16 20:49 Antibody Screen Negative 10/09/16 18:54 Crossmatch See Detail 10/09/16 18:54 BBK History Checked No verified bt 10/09/16 18:54 - Hospital Course Hospital Course: 71F sepsis secondary to acute cholangitis complicated by MONTEZ s/p laparoscopic cholecystectomy POD#1. PMH HTN, OA, bradycardia, thyroid cancer s/p thyroidectomy Patient was admitted on 10/06 for sharp RUQ pain radiating to the back beginning 1 day prior. Patient admitted to hospital. Shortly, patiennt had an expisode of hypotension, which was exacerbated by pain medication, blood pressure medication , and active infection. Patient had parameters set for blood pressure medication. PAtient was brought to ICU for further observation. Patient was given 1 L bolus of Normal saline prior to transport. Patient was brought to emergent ERCP by Dr. López. Patient was on 100cc/hr of fluid after procedure. Patient had low blood pressure 80s and 90s systolic the night of the ERCP s/s to elevated liver enzymes. Patient was then stable enuogh to be transferred to the floors. Patient had issuses urinated, and strict I/Os were ordered. Patient was on 125cc /hr of fluid. Patient voided sucessfully with more fluids. Patient's BUN/Cr improved. 10/09 HIDA was positive, which prompted family to agree to cholecystectomy by Dr. Pastor 10/10 with 1 PRBC administered due to diluted bloodwork reading of hemoglobin per Anesthesia team. On post-op check, patient was up and eating food. Patient tolerated food and pain well. Patient was seen an examined 10/11 the next day and patient was told she needs to walk more. Patient's sister was at bedside and translated for the patient stating that the patient has a lot of gases. PT evaluation and treatment was ordered to clear for discharge. IMAGING DONE: 10/06 CT abdomen/pelvis w/o venous contrast: enlarged liver. nonobstructing left renal calculus. 10/07 Extremity US: no evidence of DT 10/07 Abdomen Us: Cholelithiasis, CBD dilation, nonobstructing subcentimeter stone in left kidney 10/07 ERCP: stones and pus from gallbladder 10/09 Body scan nuclear medicine (HIDA): cystic duct occluded. consistent with cholecystitis - Date & Time of H&P Date of H&P: 10/11/16 Time of H&P: 12:43 Discharge Exam - Head Exam Head Exam: ATRAUMATIC, NORMOCEPHALIC - Eye Exam Eye Exam: EOMI, Normal appearance - ENT Exam ENT Exam: Mucous Membranes Moist - Neck Exam Neck exam: Full Rom - Respiratory Exam Respiratory Exam: NORMAL BREATHING PATTERN, UNREMARKABLE. absent: Accessory Muscle Use, Respiratory Distress - Cardiovascular Exam Cardiovascular Exam: REGULAR RHYTHM. absent: Bradycardia, Tachycardia - Neurological Exam Neurological exam: Alert, Normal Gait, Reflexes Normal - Psychiatric Exam Psychiatric exam: Normal Affect, Normal Mood - Skin Skin Exam: Dry, Intact, Normal Color, Warm Discharge Plan - Discharge Medications Prescriptions: Amoxicillin/Clavulanate [Augmentin 875 MG-125 MG] 1 tab PO BID #10 tab Docusate [Colace] 100 mg PO TID #12 cap hydrALAZINE [Apresoline] 50 mg PO TID #60 tab oxyCODONE/Acetaminophen [Percocet 5/325 mg Tab] 1 ea PO Q6H PRN #12 tab PRN Reason: Pain, Severe (8-10) - Follow Up Plan Condition: STABLE Disposition: HOME/ ROUTINE Instructions: Cholecystitis (DC), Cholecystitis (GEN), Pain Management in the Elderly (GEN), Acute Headache (DC), Acute Headache (GEN), Acute Abdominal Pain ( DC), Acute Abdominal Pain (GEN), Fall Prevention (GEN) Additional Instructions: 1. take augmentin 875 mg PO BID 5 days 2. Follow up with your primary doctor within 2-3 days of discharge. 3. Due to patient leaving for international travel on 10/16, patient was given instructions to call and set an appointment with Dr. Pastor on 10/15 at [facility] for follow up. 4. Patient instructed on careful bathing technique; refrain from being submerged in water, showers are fine 5. Fill any medications prescribed to you and take as directed 6. Return to the emergency room should your condition or symptoms worsen (ex. worsening abdominal pain, nausea, vomiting, fever, chills, etc.) Dr. Pastor Office The [address] [phone] Referrals: Chilango Pastor MD [Staff Provider] - <Christiana Licona - Last Filed: 10/11/16 14:59> Provider - Provider Date of Admission: 10/07/16 03:09 Attending physician: Christiana Licona MD Hospital Course - Lab Results Lab Results: Micro Results 10/07/16 17:55 Naris MRSA Culture (Admit) - Final MRSA NOT DETECTED 10/07/16 04:45 Urine Urine Culture - Final No Growth (<1,000 CFU/ML) Most Recent Lab Values WBC 8.1 10^3/ul (4.5-11.0) 10/11/16 05:20 RBC 3.68 10^6/uL (3.5-6.1) 10/11/16 05:20 Hgb 9.2 g/dL (12.0-16.0) L 10/11/16 05:20 Hct 27.8 % (36.0-48.0) L 10/11/16 05:20 MCV 75.5 fl (80.0-105.0) L 10/11/16 05:20 MCH 25.0 pg (25.0-35.0) 10/11/16 05:20 MCHC 33.1 g/dl (31.0-37.0) 10/11/16 05:20 RDW 16.1 % (11.5-14.5) H 10/11/16 05:20 Plt Count 221 10^3/uL (120.0-450.0) 10/11/16 05:20 MPV 10.4 fl (7.0-11.0) 10/11/16 05:20 Gran % 56.6 % (50.0-68.0) 10/11/16 05:20 Lymph % (Auto) 24.0 % (22.0-35.0) 10/11/16 05:20 Thayer % (Auto) 16.2 % (1.0-6.0) H 10/11/16 05:20 Eos % (Auto) 2.7 % (1.5-5.0) 10/11/16 05:20 Baso % (Auto) 0.5 % (0.0-3.0) 10/11/16 05:20 Gran # 4.61 (1.4-6.5) 10/11/16 05:20 Lymph # 2.0 (1.2-3.4) 10/11/16 05:20 Thayer # 1.3 (0.1-0.6) H 10/11/16 05:20 Eos # 0.2 (0.0-0.7) 10/11/16 05:20 Baso # 0.04 K/mm3 (0.0-2.0) 10/11/16 05:20 PT 10.7 Seconds (9.9-11.8) 10/10/16 06:15 INR 0.99 (0.93-1.08) 10/10/16 06:15 APTT 25.6 Seconds (23.7-30.8) 10/10/16 06:15 pO2 225 mm/Hg (30-55) H 10/06/16 23:30 VBG pH 7.42 (7.32-7.43) 10/06/16 23:30 VBG pCO2 41.0 (40-60) 10/06/16 23:30 VBG HCO3 26.6 mmol/l (21-28) 10/06/16 23:30 VBG Total CO2 27.9 mmol.L (22-28) 10/06/16 23:30 VBG O2 Sat (Calc) 98.8 % (40-65) H 10/06/16 23:30 VBG Base Excess 1.9 mmol/L (0.0-2.0) 10/06/16 23:30 VBG Potassium 4.5 mmol/L (3.6-5.2) 10/06/16 23:30 Sodium 142.0 mmol/L (132-148) 10/06/16 23:30 Chloride 106.0 mmol/L (98-107) 10/06/16 23:30 Glucose 127 mg/dl (65-105) H 10/06/16 23:30 Lactate 1.3 mmol/L (0.7-2.1) 10/06/16 23:30 FiO2 21.0 % 10/06/16 23:30 Sodium 141 mmol/L (132-148) 10/11/16 05:20 Potassium 3.1 mmol/L (3.6-5.0) L 10/11/16 05:20 Chloride 106 mmol/L (95-110) 10/11/16 05:20 Carbon Dioxide 25 mmol/L (21-33) 10/11/16 05:20 Anion Gap 13 (10-20) 10/11/16 05:20 BUN 25 mg/dL (7-21) H 10/11/16 05:20 Creatinine 1.2 mg/dL (0.5-1.4) 10/11/16 05:20 Est GFR ( Amer) 54 10/11/16 05:20 Est GFR (Non-Af Amer) 44 10/11/16 05:20 POC Glucose (mg/dL) 140 mg/dL (65-110) H 10/06/16 23:21 Random Glucose 105 mg/dL (70-110) 10/11/16 05:20 Lactic Acid 1.8 mmol/L (0.7-2.1) 10/07/16 17:20 Calcium 7.3 mg/dL (8.4-10.5) L 10/11/16 05:20 Magnesium 1.9 mg/dL (1.7-2.2) 10/10/16 06:15 Total Bilirubin 1.4 mg/dL (0.2-1.3) H 10/11/16 05:20 Direct Bilirubin 3.8 mg/dL (0.0-0.4) H 10/07/16 11:10 AST 73 U/L (15-39) H 10/11/16 05:20 ALT 127 U/L (7-56) H 10/11/16 05:20 Alkaline Phosphatase 310 U/L (38-133) H 10/11/16 05:20 Troponin I 0.02 ng/mL D 10/07/16 12:10 Total Protein 6.3 g/dL (5.8-8.3) 10/11/16 05:20 Albumin 3.1 g/dL (3.0-4.8) 10/11/16 05:20 Globulin 3.1 gm/dL 10/11/16 05:20 Albumin/Globulin Ratio 1.0 (1.1-1.8) L 10/11/16 05:20 Lipase 131 U/L (23-300) 10/06/16 23:30 25-OH Vitamin D Total 17.0 NG/ML (30.0-100.0) L 10/09/16 16:25 PTH Intact Whole Molec 55 pg/mL (14-64) 10/09/16 16:25 Venous Blood Potassium 4.5 mmol/L (3.6-5.2) 10/06/16 23:30 Urine Color Yellow (YELLOW) 10/07/16 04:45 Urine Appearance Sl cloudy (CLEAR) 10/07/16 04:45 Urine pH 7.0 (4.7-8.0) 10/07/16 04:45 Ur Specific Jensen 1.025 (1.005-1.035) 10/07/16 04:45 Urine Protein 100 mg/dL (<30 mg/dL) H 10/07/16 04:45 Urine Glucose (UA) Negative mg/dL (NEGATIVE) 10/07/16 04:45 Urine Ketones Negative mg/dL (NEGATIVE) 10/07/16 04:45 Urine Blood Small (NEGATIVE) H 10/07/16 04:45 Urine Nitrate Negative (NEGATIVE) 10/07/16 04:45 Urine Bilirubin Negative (NEGATIVE) 10/07/16 04:45 Urine Urobilinogen 0.2 E.U./dL (<1 E.U./dL) 10/07/16 04:45 Ur Leukocyte Esterase Negative Abram/uL (NEGATIVE) 10/07/16 04:45 Urine RBC 2 - 5 /hpf (0-2) 10/07/16 04:45 Urine WBC 0 - 2 /hpf (0-6) 10/07/16 04:45 Ur Epithelial Cells 0 - 2 /hpf (0-5) 10/07/16 04:45 Urine Bacteria Rare (NEG) 10/07/16 04:45 Ur Random Creatinine 102 mg/dL 10/08/16 16:54 Ur Random Sodium 46 meq/L 10/08/16 16:54 Ur Random Potassium 50.2 meq/L 10/08/16 16:54 Blood Type A POSITIVE 10/09/16 18:54 Blood Type Confirm A POSITIVE 10/09/16 20:49 Antibody Screen Negative 10/09/16 18:54 Crossmatch See Detail 10/09/16 18:54 BBK History Checked No verified bt 10/09/16 18:54 Attending/Attestation - Attestation I have personally seen and examined this patient.: Yes I have fully participated in the care of the patient.: Yes I have reviewed all pertinent clinical information, including history, physical exam and plan: Yes Notes (Text): 10/11/16 14:57 attending note; Patient seen and examined with resident. Patient is a 71-year-old Vietnamese speaking female admitted with abdominal pain. Found to have acute cholangitis. Status post ERCP stone removal with sphincterotomy. s/p lap raymundo yesterday. Tolerating diet. LFTs improving. treated with IV zosyn. will be discharged home with Augmentin. acute renal failure;resolved. PT evaluation appreciated. Discharge home today. Family explained in detail about the need for follow-up with Dr. Pastor on Saturday. follow up with PMD DR. Hernandez. [facility] [place] [facility] [place] given. Diagnosis; Acute cholangitis Status post ERCP on sphincterotomy hypertension 10/11/16 14:58
[2016-10-11 13:17] VITALS: BP 132/71; PULSE 72
[2016-10-11] MEDS ORDERED: Simethicone 40 mg/0.6 ml Liquid (30 ml) PO SCH (14:00)
--- NOTE | 2016-10-11 15:36 | CP.PCM.PN ---
Subjective - Date & Time of Evaluation Date of Evaluation: 10/11/16 Time of Evaluation: 10:35 - Subjective Subjective: Comfortable, not in distress, no abdominal pain, no nausea, no fevers overnight. Had cholecystectomy done yesterday. Objective - Vital Signs/Intake and Output Vital Signs (last 24 hours): Temp Pulse Resp BP Pulse Ox 98.4 F 68 20 174/90 H 95 10/10/16 16:00 10/10/16 16:00 10/10/16 16:00 10/10/16 17:06 10/10/16 16:00 Intake and Output: 10/11/16 10/11/16 06:59 18:59 Intake Total 720 Balance 720 - Medications Medications: Current Medications Benzocaine/Menthol (Cepacol Sore Throat) 1 lyn MT Q2H PRN PRN Reason: Sore Throat Last Admin: 10/10/16 17:06 Dose: 1 lyn Calcium/Vitamin D (Oscal-D 250 Mg-125 Units Tab) 1 tab PO DAILY [facility] Last Admin: 10/10/16 11:51 Dose: Not Given Docusate Sodium (Colace) 100 mg PO DAILY [facility] Last Admin: 10/10/16 11:50 Dose: Not Given Furosemide (Lasix) 40 mg PO DAILY [facility] Last Admin: 10/10/16 12:44 Dose: 40 mg Gabapentin (Neurontin) 100 mg PO HS NORM PRN Reason: Protocol Last Admin: 10/10/16 21:19 Dose: 100 mg Heparin Sodium (Porcine) (Heparin) 5,000 units SC Q12 NORM PRN Reason: Protocol Last Admin: 10/09/16 21:38 Dose: 5,000 units Hydralazine HCl (Apresoline) 50 mg PO TID [facility] Last Admin: 10/10/16 17:06 Dose: 50 mg Piperacillin Sod/Tazobactam Sod (Zosyn 3.375 In Ns 100ml) 100 mls @ 200 mls/hr IVPB Q6 NORM PRN Reason: Protocol Stop: 10/17/16 12:01 Last Admin: 10/11/16 06:01 Dose: 200 mls/hr Levothyroxine Sodium (Synthroid) 300 mcg PO 0600 [facility] Last Admin: 10/11/16 05:40 Dose: 300 mcg Lisinopril (Zestril) 10 mg PO DAILY [facility] Last Admin: 10/10/16 12:46 Dose: 10 mg Morphine Sulfate (Morphine) 2 mg IVP Q4H PRN PRN Reason: Pain, moderate (4-7) Last Admin: 10/08/16 13:15 Dose: 2 mg Morphine Sulfate (Morphine) 4 mg IVP Q4H PRN PRN Reason: Pain, severe (8-10) Ondansetron HCl (Zofran Inj) 4 mg IVP Q6H PRN PRN Reason: Nausea/Vomiting Oxycodone/Acetaminophen (Percocet 5/325 Mg Tab) 1 tab PO Q4H PRN PRN Reason: Pain, moderate (4-7) Stop: 10/13/16 09:41 Last Admin: 10/11/16 04:08 Dose: 1 tab Pantoprazole Sodium (Protonix Inj) 40 mg IVP DAILY [facility] Last Admin: 10/10/16 11:51 Dose: Not Given - Labs Labs: 10/11/16 05:20 10/11/16 05:20 PT 10.7 Seconds (9.9-11.8) 10/10/16 06:15 INR 0.99 (0.93-1.08) 10/10/16 06:15 APTT 25.6 Seconds (23.7-30.8) 10/10/16 06:15 - Constitutional Appears: Non-toxic, No Acute Distress - Head Exam Head Exam: NORMAL INSPECTION - ENT Exam ENT Exam: Mucous Membranes Moist - Neck Exam Neck Exam: absent: Lymphadenopathy, Meningismus - Respiratory Exam Respiratory Exam: Decreased Breath Sounds - Cardiovascular Exam Cardiovascular Exam: +S1, +S2 - GI/Abdominal Exam GI & Abdominal Exam: Soft. absent: Tenderness Assessment and Plan - Assessment and Plan (Free Text) Plan: Assessment Sepsis due to acute cholangitis S/P ERCP, stone extraction and sphincterotomy POD #4; S/P laparoscopic cholecystectomy POD #1 acute renal failure, etiology to be determined HTN thyroid cancer S/P thyroidectomy and parathyroidectomy obesity with BMI 30 Plan continue Zosyn (day 5 today); blood cx are negative - when ready for discharge, can be be switched to PO Augmentin for another 5-7 days follow up Renal evaluation and recommendations regarding renal failure
[2016-10-11] MEDS ORDERED: Calcium-Vit D 250 mg-125 Units Tab UD PO SCH (18:00)
== END 2016-10-11 15:20 | disposition home or self-care (01) | DRG 581 ==
LOC: ED 22:48 → ERH 10-07 03:09 → 5RSO 10-07 04:57 → CCU 10-07 17:25 → 5RNO 10-09 16:06
PROVIDERS: ADMIT Internal Medicine; ATTEND Internal Medicine
PROC: 0FC98ZZ Extirpation of Matter from Common Bile Duct, Via Natural or Artificial Opening Endoscopic (ICD-10-PCS; 2016-10-07 07:00)
PROC: 0FT44ZZ Resection of Gallbladder, Percutaneous Endoscopic Approach (ICD-10-PCS; principal; 2016-10-10 07:30)
DX: A41.9 Sepsis, unspecified organism (principal); K80.66 Calculus of gallbladder and bile duct with acute and chronic cholecystitis without obstruction; N17.0 Acute kidney failure with tubular necrosis; E87.0 Hyperosmolality and hypernatremia; E87.2 Acidosis; E87.6 Hypokalemia; I10 Essential (primary) hypertension; E89.0 Postprocedural hypothyroidism; Z96.653 Presence of artificial knee joint, bilateral; K21.9 Gastro-esophageal reflux disease without esophagitis; E66.9 Obesity, unspecified; R00.1 Bradycardia, unspecified; E83.51 Hypocalcemia; Z68.30 Body mass index [BMI] 30.0-30.9, adult; Z85.850 Personal history of malignant neoplasm of thyroid; Z98.1 Arthrodesis status

== ENCOUNTER 2017-03-25 21:26 | Observation (INO) | payer MEDICAID, OTHER, SELFPAY ==
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
[2017-03-25 22:24] LABS: HEMOGLOBIN 11.4 g/dL (12.0-16.0); MEAN CELL VOLUME 77.5 fl (80.0-105.0); MEAN CORPUSCULAR HEMOGLOBIN 24.5 pg (25.0-35.0); MEAN CORPUSCULAR HGB CONC 31.6 g/dl (31.0-37.0); MEAN PLATELET VOLUME 11.3 fl (7.0-11.0); RBC 4.66 10^6/uL (3.5-6.1); RED CELL DISTRIBUTION WIDTH 17.6 % (11.5-14.5); WHITE BLOOD COUNT 5.6 10^3/ul (4.5-11.0)
[2017-03-25 22:37] LABS: ALB/GLOB RATIO 1.2 (1.1-1.8); ALBUMIN 3.8 g/dL (3.0-4.8); ALT/SGPT 25 U/L (7-56); AST/SGOT 30 U/L (14-36); BLOOD UREA NITROGEN 19 mg/dL (7-21); CALCIUM 8.7 mg/dL (8.4-10.5); GFR AFRICAN-AMERICAN > 60; GFR NON-AFRICAN AMERICAN > 60
[2017-03-25 22:46] LABS: INR 1.03 (0.93-1.08); PARTIAL THROMBOPLASTIN TIME 29.6 Seconds (25.1-36.5); PROTHROMBIN TIME 11.7 SECONDS (9.4-12.5); TROPONIN I < 0.01 ng/mL
[2017-03-25 22:51] LABS: CK-MB 3.2 ng/mL (0.0-3.6)
[2017-03-26] MEDS ORDERED: Nitroglycerin 2% Ointment Foilpak UD TOP STA (00:58)
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
[2017-03-26] MEDS: Pantoprazole 40 mg EC Tab PO SCH (07:10)
[2017-03-26] MEDS: Levothyroxine 200 MCG TAB PO SCH (07:10)
[2017-03-26 07:57] LABS: FREE T4 0.36 ng/dL (0.78-2.19)
--- NOTE | 2017-03-26 08:36 | RAD ---
HISTORY: chest pain COMPARISON: 10/07/2016 FINDINGS: LUNGS: No active pulmonary disease. PLEURA: No significant pleural effusion identified, no pneumothorax apparent. CARDIOVASCULAR: Mild cardiomegaly OSSEOUS STRUCTURES: No significant abnormalities. VISUALIZED UPPER ABDOMEN: Normal. OTHER FINDINGS: None. IMPRESSION: No active disease.
[2017-03-26] MEDS ORDERED: Potassium Chloride 20 mEq ER Tab PO ONE (08:57)
[2017-03-26 09:39] LABS: BASO # 0.04 K/mm3 (0.0-2.0); BASO % 0.8 % (0.0-3.0); EOS # 0.4 (0.0-0.7); EOS % 7.1 % (1.5-5.0); GRAN # 1.62 (1.4-6.5); HEMOGLOBIN 11.5 g/dL (12.0-16.0); LYMPH # 2.5 (1.2-3.4); LYMPH % 51.2 % (22.0-35.0); MEAN CORPUSCULAR HEMOGLOBIN 24.3 pg (25.0-35.0); MEAN CORPUSCULAR HGB CONC 31.5 g/dl (31.0-37.0); MEAN PLATELET VOLUME 11.7 fl (7.0-11.0); MONO # 0.4 (0.1-0.6); MONO % 7.9 % (1.0-6.0); RBC 4.74 10^6/uL (3.5-6.1); RED CELL DISTRIBUTION WIDTH 17.6 % (11.5-14.5); WHITE BLOOD COUNT 4.9 10^3/ul (4.5-11.0)
[2017-03-26 09:48] LABS: ALB/GLOB RATIO 1.1 (1.1-1.8); ALBUMIN 3.5 g/dL (3.0-4.8); ALT/SGPT 31 U/L (7-56); AST/SGOT 29 U/L (14-36); BLOOD UREA NITROGEN 15 mg/dL (7-21); CALCIUM 8.2 mg/dL (8.4-10.5); GFR AFRICAN-AMERICAN > 60; GFR NON-AFRICAN AMERICAN > 60
[2017-03-26] MEDS ORDERED: Ergocalciferol 50,000 Intl Units Cap PO SCH (10:00)
--- NOTE | 2017-03-26 10:13 | MRI ---
MRI right shoulder History: Shoulder pain. Comparison: None available. Technique: Multi-echo multiplanar sequences were performed through the right shoulder without the use of intravenous contrast. Findings: Large glenohumeral joint effusion with associated prominent synovial debris and hypertrophy. Large amount of fluid within the subcoracoid bursa with associated synovial debris and hypertrophy. Fluid distension of the biceps tendon sheath. Moderate to severe degenerative changes at the glenohumeral joint space with prominent cartilage thinning and loss involving the inferior bony glenoid. Associated remodeling of the bony glenoid with prominent subchondral cyst formation noted within the superior aspect of the glenoid measuring up to 5.2 millimeters. Signal change in the marrow of the mid to inferior bony glenoid which may be the sequela of osteochondral changes; however, superimposed acute inflammatory and or infectious changes cannot entirely be excluded on basis of these images. Clinical correlation. Marked thickening and fraying of the distal supraspinatus tendon with increased signal seen within the distal most aspect of the tendon near its insertion on the greater tuberosity suggestive for a large partial articular surface tear with an associated severe tendinopathy. No gross tendon retraction or muscle atrophy. At the most far anterior insertion, there is a 4 millimeter focal area of fluid signal intensity which may represent a small full thickness defect. Moderate distal infraspinatus tendinopathy with articular surface fraying. Teres minor tendon is preserved. Severe tendinopathy of the distal subscapularis tendon with partial tearing of the superior distal tendon strand fibers. Prominent fluid distension of the biceps tendon sheath with an associated severe tendinopathy of the proximal portion of the long head of the biceps tendon. Associated interstitial delamination. Evaluation of the glenoid labrum demonstrates circumferential tearing of the labrum including the anterior, superior, and posterior labrum. Moderate acromioclavicular joint space degenerative changes with joint space narrowing, subchondral edema, and bony hypertrophy. Impression: 1. Large glenohumeral joint effusion with associated prominent synovial debris and hypertrophy. Large amount of fluid within the subcoracoid bursa with associated synovial debris and hypertrophy. 2. Moderate to severe degenerative changes at the glenohumeral joint space with prominent cartilage thinning and loss involving the inferior bony glenoid. Associated remodeling of the bony glenoid with prominent subchondral cyst formation noted within the superior aspect of the glenoid measuring up to 5.2 millimeters. Signal change in the marrow of the mid to inferior bony glenoid which may be the sequela of osteochondral changes; however, superimposed acute inflammatory and or infectious changes cannot entirely be excluded on basis of these images. Clinical correlation. 3. Marked thickening and fraying of the distal supraspinatus tendon with increased signal seen within the distal most aspect of the tendon near its insertion on the greater tuberosity suggestive for a large partial articular surface tear with an associated severe tendinopathy. No gross tendon retraction or muscle atrophy. At the most far anterior insertion, there is a 4 millimeter focal area of fluid signal intensity which may represent a small full thickness defect. 4. Moderate distal infraspinatus tendinopathy with articular surface fraying. 5. Severe tendinopathy of the distal subscapularis tendon with partial tearing of the superior distal tendon strand fibers. 6. Prominent fluid distension of the biceps tendon sheath with an associated severe tendinopathy of the proximal portion of the long head of the biceps tendon. Associated interstitial delamination. Fluid distension of the biceps tendon sheath. 7. Evaluation of the glenoid labrum demonstrates circumferential tearing of the labrum including the anterior, superior, and posterior labrum. 8. Moderate acromioclavicular joint space degenerative changes with joint space narrowing, subchondral edema, and bony hypertrophy.
--- NOTE | 2017-03-26 10:57 | CARD ---
APPROVED REPORT EKG Measurement Heart [id number] <Conclusion> Normal sinus rhythm Incomplete right bundle branch block Nonspecific ST and T wave abnormality Abnormal ECG
[2017-03-26] MEDS: Cholecalciferol 400 Intl Units Tab PO SCH (11:21)
--- NOTE | 2017-03-26 12:05 | CARD ---
APPROVED REPORT EKG Measurement Heart [id number] <Conclusion> Sinus bradycardia with sinus arrhythmia Incomplete right bundle branch block Minimal voltage criteria for LVH, may be normal variant Nonspecific T wave abnormality Abnormal ECG
[2017-03-26 21:48] VITALS: BMI 42.2
[2017-03-26] MEDS ORDERED: Pneumococcal 23-Valent Vaccine IM ONE (21:48)
[2017-03-26] MEDS ORDERED: Influenza Vaccine 60 mcg/0.5 mL SYR (4YR UP) IM ONE (21:48)
[2017-03-27] MEDS: Pantoprazole 40 mg EC Tab PO SCH (05:28)
[2017-03-27] MEDS: Levothyroxine 200 MCG TAB PO SCH (05:30)
[2017-03-27 06:48] LABS: BASO # 0.04 K/mm3 (0.0-2.0); BASO % 0.8 % (0.0-3.0); EOS # 0.3 (0.0-0.7); EOS % 5.4 % (1.5-5.0); GRAN # 2.07 (1.4-6.5); GRAN % 39.9 % (50.0-68.0); LYMPH # 2.4 (1.2-3.4); LYMPH % 46.6 % (22.0-35.0); MEAN CELL VOLUME 77.2 fl (80.0-105.0); MEAN CORPUSCULAR HGB CONC 31.2 g/dl (31.0-37.0); MEAN PLATELET VOLUME 11.8 fl (7.0-11.0); MONO # 0.4 (0.1-0.6); MONO % 7.3 % (1.0-6.0); RBC 4.99 10^6/uL (3.5-6.1); RED CELL DISTRIBUTION WIDTH 17.7 % (11.5-14.5); WHITE BLOOD COUNT 5.2 10^3/ul (4.5-11.0)
[2017-03-27 07:17] LABS: ALB/GLOB RATIO 1.2 (1.1-1.8); ALBUMIN 4.1 g/dL (3.0-4.8); ALT/SGPT 29 U/L (7-56); AST/SGOT 29 U/L (14-36); BLOOD UREA NITROGEN 15 mg/dL (7-21); GFR AFRICAN-AMERICAN > 60; GFR NON-AFRICAN AMERICAN > 60; MAGNESIUM 2.1 mg/dL (1.7-2.2)
[2017-03-27 08:53] LABS: FREE T4 0.58 ng/dL (0.78-2.19)
[2017-03-27] MEDS: Cholecalciferol 400 Intl Units Tab PO SCH (11:12)
--- NOTE | 2017-03-27 17:21 | US ---
HISTORY: Leg pain and swelling. Evaluate for DVT PHYSICIAN(S): Chino Pool MD. TECHNIQUE: Duplex sonography and color-flow Doppler with graded compression were used to evaluate the deep venous systems of both lower extremities. FINDINGS: The visualized deep venous systems of both lower extremities are sonographically normal and compressible. Normal wave forms and augmentation are seen. There is no sonographic evidence for deep venous thrombosis in the visualized segments of both lower extremities. IMPRESSION: No sonographic evidence for deep venous thrombosis in the visualized segments of both lower extremities.
--- NOTE | 2017-03-27 18:06 | CP.PCM.PN ---
<Usama Chapa - Last Filed: 03/27/17 18:02> Subjective - Date & Time of Evaluation Date of Evaluation: 03/27/17 Time of Evaluation: 07:30 - Subjective Subjective: Usama Chapa DO PGY1 - IM Progress Note Patient seen and examined at bedside. No acute events overnight. Patient reports marked improvement in her chest pain. Continues to have severe right shoulder pain. Also still complaining of urinary frequency, but denies burning on urination. She also reports pain and tenderness in the anterior aspects of both legs below the knees, but denies swelling or calf pain. She denies shortness of breath, palpitations, abdominal pain, nausea, vomiting, diarrhea, constipation. Objective - Vital Signs/Intake and Output Vital Signs (last 24 hours): Temp Pulse Resp BP Pulse Ox 97.7 F 85 18 149/100 H 97 03/27/17 06:00 03/27/17 14:00 03/27/17 06:00 03/27/17 14:00 03/27/17 06:00 Intake and Output: 03/27/17 03/27/17 06:59 18:59 Intake Total 600 Balance 600 - Medications Medications: Current Medications Amiodarone HCl (Cordarone) 200 mg PO DAILY [facility] Last Admin: 03/27/17 11:10 Dose: 200 mg Aspirin (Ecotrin) 81 mg PO DAILY [facility] Last Admin: 03/27/17 11:12 Dose: 81 mg Docusate Sodium (Colace) 100 mg PO TID [facility] Last Admin: 03/27/17 16:21 Dose: 100 mg Ergocalciferol (Drisdol 50,000 Intl Units Cap) 1 cap PO Q72H [facility] Last Admin: 03/26/17 11:20 Dose: 1 cap Furosemide (Lasix) 40 mg PO DAILY [facility] Last Admin: 03/27/17 11:11 Dose: 40 mg Gabapentin (Neurontin) 100 mg PO HS [facility] PRN Reason: Protocol Last Admin: 03/26/17 22:27 Dose: 100 mg Heparin Sodium (Porcine) (Heparin) 5,000 units SC Q8 [facility] PRN Reason: Protocol Last Admin: 03/27/17 16:21 Dose: 5,000 units Hydralazine HCl (Apresoline) 50 mg PO TID [facility] Last Admin: 03/27/17 14:00 Dose: 50 mg Ibuprofen (Motrin Tab) 400 mg PO Q6 PRN PRN Reason: Pain, Mild (1-3) Last Admin: 03/27/17 13:35 Dose: 400 mg Levothyroxine Sodium (Synthroid) 400 mcg PO DAILY@0630 [facility] Last Admin: 03/27/17 05:30 Dose: 400 mcg Lisinopril (Zestril) 10 mg PO DAILY [facility] Last Admin: 03/27/17 11:12 Dose: 10 mg Meclizine HCl (Antivert) 25 mg PO Q6 PRN PRN Reason: Dizziness Pantoprazole Sodium (Protonix Ec Tab) 40 mg PO 0600 [facility] Last Admin: 03/27/17 05:28 Dose: 40 mg Vitamin D (Vitamin D 400 Intl Units Tab) 400 intlu PO DAILY [facility] Last Admin: 03/27/17 11:12 Dose: 400 intlu - Labs Labs: 03/27/17 06:00 03/27/17 06:00 PT 11.7 SECONDS (9.4-12.5) 03/25/17 22:15 INR 1.03 (0.93-1.08) 03/25/17 22:15 APTT 29.6 Seconds (25.1-36.5) 03/25/17 22:15 - Constitutional Appears: Non-toxic, No Acute Distress - Head Exam Head Exam: ATRAUMATIC, NORMOCEPHALIC - Eye Exam Eye Exam: EOMI, Normal appearance, PERRL - ENT Exam ENT Exam: Mucous Membranes Moist - Neck Exam Neck Exam: Normal Inspection. absent: Tenderness - Respiratory Exam Respiratory Exam: Clear to Ausculation Bilateral, NORMAL BREATHING PATTERN - Cardiovascular Exam Cardiovascular Exam: RRR, +S1, +S2 - GI/Abdominal Exam GI & Abdominal Exam: Soft, Normal Bowel Sounds. absent: Tenderness - Extremities Exam Extremities Exam: absent: Calf Tenderness, Pedal Edema Additional comments: Right arm held in guarded position. Severely limited in abduction passively and actively. Moderately limited in all other planes of motion passively and actively. Anterior AC joint tenderness. Left shoulder with only mild limitations , without pain. - Neurological Exam Neurological Exam: Alert, Awake, Oriented x3 - Psychiatric Exam Psychiatric exam: Normal Affect, Normal Mood - Skin Skin Exam: Dry, Intact, Normal Color Assessment and Plan - Assessment and Plan (Free Text) Assessment: 71 [place]alese F with PMH of HTN, OA, bradycardia, thyroid cancer s/p thyroidectomy /parathyroidectomy presenting to [facility] with reproducible chest pain accompanied with pain in right arm. Also complaining of urinary frequency and urgency. Plan: 1. Chest Pain -EKG shows NSR -Pain is reproducible on exam; subjectively improved -Serial troponins negative -cardiology consulted, follow recs 2. Right Shoulder/Arm Pain -MRI shows significant chronic inflammatory changes; marked degeneration; possible chronic tears -Ortho consult requested 3. HTN -continue home meds 4. Hx Thyroid Ca s/p thyroidectomy -Continue synthroid -T4 low; TSH severely elvated -Patient is not sure about which medications she takes, how or when she takes them; likely not taking synthroid appropriately -Will continue synthroid before breakfast and recheck levels with AM labs. 5. Leg pain -Patient was complaining of anterior leg pain and tenderness today -LE venous duplex negative for DVT -Likely 2/2 OA vs tibial myxedema 6. Urinary frequency -Ordered UA and UCx GI/DVT Prophylaxis -Heparin -Protonix Patient seen, discussed, and reviewed with attending Flavia Warner - Last Filed: 03/28/17 16:46> Objective - Vital Signs/Intake and Output Vital Signs (last 24 hours): Temp Pulse Resp BP Pulse Ox 97.9 F 60 20 152/93 H 99 03/28/17 09:26 03/28/17 09:30 03/28/17 09:26 03/28/17 09:31 03/28/17 09:26 Intake and Output: 03/28/17 03/28/17 06:59 18:59 Intake Total 360 480 Output Total 250 Balance 110 480 - Labs Labs: 03/28/17 05:45 03/28/17 05:45 PT 11.7 SECONDS (9.4-12.5) 03/25/17 22:15 INR 1.03 (0.93-1.08) 03/25/17 22:15 APTT 29.6 Seconds (25.1-36.5) 03/25/17 22:15 Attending/Attestation - Attestation I have personally seen and examined this patient.: Yes I have fully participated in the care of the patient.: Yes I have reviewed all pertinent clinical information, including history, physical exam and plan: Yes Notes (Text): I have seen and examined the patient at bedside. Agree with the above note with the following additions/ exceptions: Briefly this is 71 year old female with history of HTN, OA, bradycardia, thyroid cancer s/p thyroidectomy/ parathyroidectomy who was admitted for evaluation of chest pain which is reproducible. Serial troponins negative. Ekg is NSR. Awaiting cardiology recommendations. MRI of right shoulder reviewed. Awaiting ortho consult. Continue synthroid. It is very unclear if patient is taking synthroid regularly. Advised patient and her daughter to take medicine on empty stomach. Also complains of bilateral leg pain. US of bilateral LE pending. Patient reports urinary frequency and urgency. Will check UA and urine culture. Upon discharge patient will follow up with [facility] clinic. Dr Flavia Kelsey
--- NOTE | 2017-03-27 18:21 | CON ---
DATE: 03/27/2017 CARDIOLOGY CONSULTATION HISTORY OF PRESENT ILLNESS: The patient is a 71-year-old woman who presented with chest pain. The patient had similar symptoms and underwent cardiac catheterization at [facility] [place] where her coronaries are found to be normal. She denies chest pain now. She does complain of diffuse body aches. PAST MEDICAL HISTORY: Notable for hypertension. She is on chronic oxycodone for diffuse pain. MEDICATIONS: The patient was placed on low-dose amiodarone for presumed occasional arrhythmias. SOCIAL HISTORY AND REVIEW OF SYSTEMS: Unremarkable. PHYSICAL EXAMINATION VITAL SIGNS: Blood pressure is 169/80, heart rates is in the 60s. NECK: Negative JVD. LUNGS: Without rales. HEART: S1 and S2. Extremities: Without edema. LABORATORY DATA: Hemoglobin is 12. Chemistries: BUN and creatinine are unremarkable. Troponins are negative x2. EKG is within normal limits. IMPRESSION AND PLAN: 1. Atypical chest pain. 2. Diffuse body aches. 3. Obesity. 4. Hypertension. Given these findings, the patient's cardiac status is stable. She had a cardiac catheterization at [facility] [place] 6 months ago and is found to be within normal limits. We will discontinue telemetry today. We will sign off the case. No further cardiac workup is necessary. Chino Bejarano MD
[2017-03-28 02:58] LABS: URINE BILIRUBIN NEGATIVE (NEGATIVE); URINE BLOOD NEGATIVE (NEGATIVE); URINE GLUCOSE (UA) NEGATIVE (NEGATIVE); URINE LEUKOCYTE ESTERASE SMALL Leu/uL (NEGATIVE); URINE NITRATE NEGATIVE (NEGATIVE); URINE PROTEIN NEGATIVE mg/dL (<30 mg/dL); URINE UROBILINOGEN 0.2 E.U./dL (<1 E.U./dL)
[2017-03-28 03:07] LABS: URINE APPEARANCE CLEAR (CLEAR); URINE COLOR YELLOW (YELLOW)
[2017-03-28 03:14] LABS: URINE EPITHELIAL CELLS 0 - 2 /hpf (0-5); URINE RBC 0 - 2 /hpf (0-2); URINE WBC 15 - 20 /hpf (0-6)
[2017-03-28 03:15] LABS: URINE BACTERIA FEW (NEG)
[2017-03-28] MEDS: Levothyroxine 200 MCG TAB PO SCH (05:42)
[2017-03-28] MEDS: Pantoprazole 40 mg EC Tab PO SCH (05:42)
[2017-03-28 06:32] LABS: BASO # 0.04 K/mm3 (0.0-2.0); BASO % 0.7 % (0.0-3.0); EOS # 0.3 (0.0-0.7); EOS % 5.3 % (1.5-5.0); GRAN # 2.35 (1.4-6.5); GRAN % 39.3 % (50.0-68.0); HEMOGLOBIN 12.7 g/dL (12.0-16.0); LYMPH # 2.8 (1.2-3.4); LYMPH % 47.2 % (22.0-35.0); MEAN CELL VOLUME 76.8 fl (80.0-105.0); MEAN CORPUSCULAR HEMOGLOBIN 24.1 pg (25.0-35.0); MEAN CORPUSCULAR HGB CONC 31.4 g/dl (31.0-37.0); MEAN PLATELET VOLUME 11.5 fl (7.0-11.0); MONO # 0.5 (0.1-0.6); MONO % 7.5 % (1.0-6.0); RBC 5.26 10^6/uL (3.5-6.1); RED CELL DISTRIBUTION WIDTH 17.9 % (11.5-14.5)
[2017-03-28 06:35] VITALS: BP 152/93; RESP 20; TEMP 97.9; O2SAT 99
[2017-03-28 07:47] LABS: FREE T4 0.97 ng/dL (0.78-2.19)
[2017-03-28 08:24] LABS: ALB/GLOB RATIO 1.1 (1.1-1.8); ALBUMIN 4.3 g/dL (3.0-4.8); ALT/SGPT 22 U/L (7-56); AST/SGOT 34 U/L (14-36); BLOOD UREA NITROGEN 21 mg/dL (7-21); CALCIUM 9.1 mg/dL (8.4-10.5); GFR AFRICAN-AMERICAN > 60; GFR NON-AFRICAN AMERICAN > 60
[2017-03-28] MEDS ORDERED: MethylPREDNISolone Depo 80 mg/ml (5 ml) Inj INJ ONE (08:54)
[2017-03-28] MEDS ORDERED: Lidocaine 1% Inj (20ml) IJ STA (08:54)
[2017-03-28] MEDS: Cholecalciferol 400 Intl Units Tab PO SCH (09:30)
[2017-03-28 09:34] VITALS: PULSE 60
[2017-03-28] MEDS ORDERED: Tmp-Smz 800 mg-160 mg DS Tab PO SCH (10:00)
[2017-03-28] MEDS ORDERED: Menthol/Methyl Salicylate Ointment(1 oz) TOP PRN (11:29)
[2017-03-28] MEDS ORDERED: MethylPREDNISolone Depo 40 mg/ml Inj INJ ONE (11:45)
--- NOTE | 2017-03-28 22:12 | CP.PCM.DIS ---
<Usama Chapa - Last Filed: 03/28/17 22:00> Provider - Provider Date of Admission: 03/26/17 01:06 Attending physician: Flavia Kelsey MD Primary care physician: NO PRIMARY CARE PROVIDER Consults: Cardio: Darci Ortho: Kemar Time Spent in preparation of Discharge (in minutes): 45 Diagnosis - Discharge Diagnosis (1) Osteoarthritis Status: Acute (2) Chest pain Status: Acute Hospital Course - Lab Results Lab Results: Most Recent Lab Values WBC 6.0 10^3/ul (4.5-11.0) 03/28/17 05:45 RBC 5.26 10^6/uL (3.5-6.1) 03/28/17 05:45 Hgb 12.7 g/dL (12.0-16.0) 03/28/17 05:45 Hct 40.4 % (36.0-48.0) 03/28/17 05:45 MCV 76.8 fl (80.0-105.0) L 03/28/17 05:45 MCH 24.1 pg (25.0-35.0) L 03/28/17 05:45 MCHC 31.4 g/dl (31.0-37.0) 03/28/17 05:45 RDW 17.9 % (11.5-14.5) H 03/28/17 05:45 Plt Count 378 10^3/uL (120.0-450.0) 03/28/17 05:45 MPV 11.5 fl (7.0-11.0) H 03/28/17 05:45 Gran % 39.3 % (50.0-68.0) L 03/28/17 05:45 Lymph % (Auto) 47.2 % (22.0-35.0) H 03/28/17 05:45 Jenkins % (Auto) 7.5 % (1.0-6.0) H 03/28/17 05:45 Eos % (Auto) 5.3 % (1.5-5.0) H 03/28/17 05:45 Baso % (Auto) 0.7 % (0.0-3.0) 03/28/17 05:45 Gran # 2.35 (1.4-6.5) 03/28/17 05:45 Lymph # (Auto) 2.8 (1.2-3.4) 03/28/17 05:45 Jenkins # (Auto) 0.5 (0.1-0.6) 03/28/17 05:45 Eos # (Auto) 0.3 (0.0-0.7) 03/28/17 05:45 Baso # (Auto) 0.04 K/mm3 (0.0-2.0) 03/28/17 05:45 PT 11.7 SECONDS (9.4-12.5) 03/25/17 22:15 INR 1.03 (0.93-1.08) 03/25/17 22:15 APTT 29.6 Seconds (25.1-36.5) 03/25/17 22:15 Sodium 141 mmol/L (132-148) 03/28/17 05:45 Potassium 4.4 mmol/L (3.6-5.0) 03/28/17 05:45 Chloride 99 mmol/L (98-107) 03/28/17 05:45 Carbon Dioxide 32 mmol/L (21-33) 03/28/17 05:45 Anion Gap 14 (10-20) 03/28/17 05:45 BUN 21 mg/dL (7-21) 03/28/17 05:45 Creatinine 0.8 mg/dl (0.7-1.2) 03/28/17 05:45 Est GFR ( Amer) > 60 03/28/17 05:45 Est GFR (Non-Af Amer) > 60 03/28/17 05:45 Random Glucose 105 mg/dL (70-110) 03/28/17 05:45 Calcium 9.1 mg/dL (8.4-10.5) 03/28/17 05:45 Phosphorus 4.3 mg/dL (2.5-4.5) 03/27/17 06:00 Magnesium 2.1 mg/dL (1.7-2.2) 03/27/17 06:00 Total Bilirubin 0.6 mg/dL (0.2-1.3) 03/28/17 05:45 AST 34 U/L (14-36) 03/28/17 05:45 ALT 22 U/L (7-56) 03/28/17 05:45 Alkaline Phosphatase 90 U/L (38-126) 03/28/17 05:45 Lactate Dehydrogenase 614 U/L (333-699) 03/25/17 22:15 Total Creatine Kinase 280 U/L (35-230) H 03/25/17 22:15 CK-MB (CK-2) 3.2 ng/mL (0.0-3.6) 03/25/17 22:15 CK-MB (CK-2) % Cancelled 03/25/17 22:15 Troponin I < 0.01 ng/mL 03/26/17 07:00 Total Protein 8.1 g/dL (5.8-8.3) 03/28/17 05:45 Albumin 4.3 g/dL (3.0-4.8) 03/28/17 05:45 Globulin 3.8 gm/dL 03/28/17 05:45 Albumin/Globulin Ratio 1.1 (1.1-1.8) 03/28/17 05:45 25-OH Vitamin D Total < 12.8 NG/ML (30.0-100.0) L 03/26/17 06:30 Free T4 0.97 ng/dL (0.78-2.19) 03/28/17 05:45 TSH 3rd Generation 43.40 mIU/mL (0.46-4.68) H 03/28/17 05:45 Urine Color Yellow (YELLOW) 03/28/17 02:00 Urine Appearance Clear (CLEAR) 03/28/17 02:00 Urine pH 6.0 (4.7-8.0) 03/28/17 02:00 Ur Specific Jameson 1.025 (1.005-1.035) 03/28/17 02:00 Urine Protein Negative mg/dL (<30 mg/dL) 03/28/17 02:00 Urine Glucose (UA) Negative mg/dL (NEGATIVE) 03/28/17 02:00 Urine Ketones Trace mg/dL (NEGATIVE) H 03/28/17 02:00 Urine Blood Negative (NEGATIVE) 03/28/17 02:00 Urine Nitrate Negative (NEGATIVE) 03/28/17 02:00 Urine Bilirubin Negative (NEGATIVE) 03/28/17 02:00 Urine Urobilinogen 0.2 E.U./dL (<1 E.U./dL) 03/28/17 02:00 Ur Leukocyte Esterase Small Abram/uL (NEGATIVE) H 03/28/17 02:00 Urine RBC 0 - 2 /hpf (0-2) 03/28/17 02:00 Urine WBC 15 - 20 /hpf (0-6) 03/28/17 02:00 Ur Epithelial Cells 0 - 2 /hpf (0-5) 03/28/17 02:00 Urine Bacteria Few (NEG) 03/28/17 02:00 - Hospital Course Hospital Course: 71 Maldivian F with PMH of HTN, OA, bradycardia, thyroid cancer s/p thyroidectomy /parathyroidectomy presenting to [facility] [place] complaining of chest pain for the past few days, as well as right shoulder pain and urinary frequency. Patient had just returned from [place] after having been there for 5 months, and did not have any of her medications left. Neither she nor her daughter were familiar with her medications. The patient's chest pain was determined to be non-cardiac in origin. MRI of the right shoulder was done, which showed signs of chronic inflammatory processes. UA was remarkable for signs of likely infection. She was also noted to be severely hypothyroid, and was not taking her thyroid medications appropriately. Patient's medications were reconciled and optimized, and she and her daughter were repeatedly educated on all the medications she was prescribed, especially on her levothyroxine. The dose of levothyroxine was not adjusted during this hospitalization, because it was determined that she had not been taking it appropriately and was therefore not absorbing the medication and getting the benefit of it. She was also started on a course of antibiotics for her urinalysis. She was given a steroid injection in her right shoulder and instructed to seek outpatient physical therapy, and follow up with the orthopedist on an outpatient basis. She was given new prescriptions of all her medications. She was also given instructions on follow up. All questions were answered to her and her daughter's satisfaction, and she was discharged to home. Discharge Exam - Head Exam Head Exam: ATRAUMATIC, NORMOCEPHALIC - Eye Exam Eye Exam: EOMI, Normal appearance, PERRL - ENT Exam ENT Exam: Mucous Membranes Moist - Neck Exam Neck exam: Normal Inspection - Respiratory Exam Respiratory Exam: Chest Wall Tenderness, Clear to PA & Lateral, NORMAL BREATHING PATTERN - Cardiovascular Exam Cardiovascular Exam: RRR, +S1, +S2 - GI/Abdominal Exam GI & Abdominal Exam: Normal Bowel Sounds, Soft. absent: Tenderness - Extremities Exam Extremities exam: normal inspection Additional comments: Severely limited active and passive ROM in right shoulder with diffuse tenderness - Neurological Exam Neurological exam: Alert, CN II-XII Intact, Oriented x3 - Psychiatric Exam Psychiatric exam: Normal Affect, Normal Mood - Skin Skin Exam: Dry, Intact, Normal Color Discharge Plan - Discharge Medications Prescriptions: Aspirin [Ecotrin] 81 mg PO DAILY #30 tabec Calcium Carbonate [Calcium] 500 mg PO DAILY #30 tablet Cholecalciferol (Vitamin D3) [Dialyvite Vitamin D] 5,000 unit PO DAILY #30 capsule Diclofenac Sodium [Voltaren] 100 gm TP DAILY PRN #1 tub PRN Reason: Pain, Mild (1-3) Docusate [Colace] 100 mg PO TID #90 cap Famotidine [Pepcid] 20 mg PO DAILY #30 tab Furosemide [Lasix] 40 mg PO DAILY #30 tab Gabapentin [Neurontin] 100 mg PO HS #30 cap hydrALAZINE [Apresoline] 50 mg PO TID #90 tab Ibuprofen [Motrin Tab] 400 mg PO Q6 PRN #30 tab PRN Reason: Pain, Mild (1-3) Levothyroxine [Synthroid] 400 mcg PO DAILY@0630 #60 tab Lisinopril [Zestril] 20 mg PO DAILY #30 tab Meclizine [Meclizine*] 25 mg PO Q6 PRN #10 tab PRN Reason: Dizziness Simvastatin 10 mg PO HS #30 tablet Sulfamethoxazole/Trimethoprim [Bactrim DS Tab] 1 tab PO BID #20 tab - Follow Up Plan Condition: STABLE Disposition: HOME/ ROUTINE Instructions: Chest Pain (DC), Chronic Hypertension (DC), Shoulder Pain (GEN) Additional Instructions: 1. Take all medications as prescribed and as instructed today 2. Take thyroid medicine (Levothyroxine, AKA Synthroid) before breakfast, on an empty stomach 3. Follow up with the primary care doctor of your choice within one week. You may also follow up at the [facility] clinic 4. For any new or worsening concerns, contact your primary care doctor immediately or return to the ER Referrals: PCP,NO [Primary Care Provider] - <Flavia Kelsey - Last Filed: 03/29/17 13:46> Provider - Provider Date of Admission: 03/26/17 01:06 Attending physician: Flavia Kelsey MD Primary care physician: NO PRIMARY CARE PROVIDER Hospital Course - Lab Results Lab Results: Most Recent Lab Values WBC 6.0 10^3/ul (4.5-11.0) 03/28/17 05:45 RBC 5.26 10^6/uL (3.5-6.1) 03/28/17 05:45 Hgb 12.7 g/dL (12.0-16.0) 03/28/17 05:45 Hct 40.4 % (36.0-48.0) 03/28/17 05:45 MCV 76.8 fl (80.0-105.0) L 03/28/17 05:45 MCH 24.1 pg (25.0-35.0) L 03/28/17 05:45 MCHC 31.4 g/dl (31.0-37.0) 03/28/17 05:45 RDW 17.9 % (11.5-14.5) H 03/28/17 05:45 Plt Count 378 10^3/uL (120.0-450.0) 03/28/17 05:45 MPV 11.5 fl (7.0-11.0) H 03/28/17 05:45 Gran % 39.3 % (50.0-68.0) L 03/28/17 05:45 Lymph % (Auto) 47.2 % (22.0-35.0) H 03/28/17 05:45 Jenkins % (Auto) 7.5 % (1.0-6.0) H 03/28/17 05:45 Eos % (Auto) 5.3 % (1.5-5.0) H 03/28/17 05:45 Baso % (Auto) 0.7 % (0.0-3.0) 03/28/17 05:45 Gran # 2.35 (1.4-6.5) 03/28/17 05:45 Lymph # (Auto) 2.8 (1.2-3.4) 03/28/17 05:45 Jenkins # (Auto) 0.5 (0.1-0.6) 03/28/17 05:45 Eos # (Auto) 0.3 (0.0-0.7) 03/28/17 05:45 Baso # (Auto) 0.04 K/mm3 (0.0-2.0) 03/28/17 05:45 PT 11.7 SECONDS (9.4-12.5) 03/25/17 22:15 INR 1.03 (0.93-1.08) 03/25/17 22:15 APTT 29.6 Seconds (25.1-36.5) 03/25/17 22:15 Sodium 141 mmol/L (132-148) 03/28/17 05:45 Potassium 4.4 mmol/L (3.6-5.0) 03/28/17 05:45 Chloride 99 mmol/L (98-107) 03/28/17 05:45 Carbon Dioxide 32 mmol/L (21-33) 03/28/17 05:45 Anion Gap 14 (10-20) 03/28/17 05:45 BUN 21 mg/dL (7-21) 03/28/17 05:45 Creatinine 0.8 mg/dl (0.7-1.2) 03/28/17 05:45 Est GFR ( Amer) > 60 03/28/17 05:45 Est GFR (Non-Af Amer) > 60 03/28/17 05:45 Random Glucose 105 mg/dL (70-110) 03/28/17 05:45 Calcium 9.1 mg/dL (8.4-10.5) 03/28/17 05:45 Phosphorus 4.3 mg/dL (2.5-4.5) 03/27/17 06:00 Magnesium 2.1 mg/dL (1.7-2.2) 03/27/17 06:00 Total Bilirubin 0.6 mg/dL (0.2-1.3) 03/28/17 05:45 AST 34 U/L (14-36) 03/28/17 05:45 ALT 22 U/L (7-56) 03/28/17 05:45 Alkaline Phosphatase 90 U/L (38-126) 03/28/17 05:45 Lactate Dehydrogenase 614 U/L (333-699) 03/25/17 22:15 Total Creatine Kinase 280 U/L (35-230) H 03/25/17 22:15 CK-MB (CK-2) 3.2 ng/mL (0.0-3.6) 03/25/17 22:15 CK-MB (CK-2) % Cancelled 03/25/17 22:15 Troponin I < 0.01 ng/mL 03/26/17 07:00 Total Protein 8.1 g/dL (5.8-8.3) 03/28/17 05:45 Albumin 4.3 g/dL (3.0-4.8) 03/28/17 05:45 Globulin 3.8 gm/dL 03/28/17 05:45 Albumin/Globulin Ratio 1.1 (1.1-1.8) 03/28/17 05:45 25-OH Vitamin D Total < 12.8 NG/ML (30.0-100.0) L 03/26/17 06:30 Free T4 0.97 ng/dL (0.78-2.19) 03/28/17 05:45 TSH 3rd Generation 43.40 mIU/mL (0.46-4.68) H 03/28/17 05:45 Urine Color Yellow (YELLOW) 03/28/17 02:00 Urine Appearance Clear (CLEAR) 03/28/17 02:00 Urine pH 6.0 (4.7-8.0) 03/28/17 02:00 Ur Specific Jameson 1.025 (1.005-1.035) 03/28/17 02:00 Urine Protein Negative mg/dL (<30 mg/dL) 03/28/17 02:00 Urine Glucose (UA) Negative mg/dL (NEGATIVE) 03/28/17 02:00 Urine Ketones Trace mg/dL (NEGATIVE) H 03/28/17 02:00 Urine Blood Negative (NEGATIVE) 03/28/17 02:00 Urine Nitrate Negative (NEGATIVE) 03/28/17 02:00 Urine Bilirubin Negative (NEGATIVE) 03/28/17 02:00 Urine Urobilinogen 0.2 E.U./dL (<1 E.U./dL) 03/28/17 02:00 Ur Leukocyte Esterase Small Abram/uL (NEGATIVE) H 03/28/17 02:00 Urine RBC 0 - 2 /hpf (0-2) 03/28/17 02:00 Urine WBC 15 - 20 /hpf (0-6) 03/28/17 02:00 Ur Epithelial Cells 0 - 2 /hpf (0-5) 03/28/17 02:00 Urine Bacteria Few (NEG) 03/28/17 02:00 Attending/Attestation - Attestation I have personally seen and examined this patient.: Yes I have fully participated in the care of the patient.: Yes I have reviewed all pertinent clinical information, including history, physical exam and plan: Yes Notes (Text): I have seen and examined the patient at bedside. Agree with the above note with the following additions/ exceptions: Briefly this is 71 year old female with history of HTN, OA, bradycardia, thyroid cancer s/p thyroidectomy/ parathyroidectomy who was admitted for evaluation of chest pain which is reproducible. Serial troponins negative. Ekg is NSR. Cardiology recommendations appreciated. MRI of right shoulder reviewed. Discussed with ortho surgeon. He recommends outpatient follow up. Steroid injection was given. Continue synthroid. It is very unclear if patient is taking synthroid regularly. Advised patient and her daughter to take medicine on empty stomach. Also complains of bilateral leg pain. US of bilateral LE negative. Patient reports urinary frequency and urgency. UA was positive. Patient was sent home on bactrim. Upon discharge patient will follow up with [facility] clinic. Dr Flavia Kelsey
== END 2017-03-28 16:10 | disposition home or self-care (01) ==
LOC: ED 21:26 → ERH 03-26 01:06 → 3RNO 03-26 16:57 → INTOOBSV 03-27 18:01 → OBSVTOIN 03-27 18:01
PROVIDERS: ADMIT Internal Medicine; ATTEND Hospitalist
DX: R07.89 Other chest pain (principal); I10 Essential (primary) hypertension; R35.0 Frequency of micturition; M25.511 Pain in right shoulder; E66.9 Obesity, unspecified; Z68.41 Body mass index [BMI] 40.0-44.9, adult; R00.1 Bradycardia, unspecified; E89.0 Postprocedural hypothyroidism; M79.604 Pain in right leg; M79.605 Pain in left leg; M19.90 Unspecified osteoarthritis, unspecified site; K21.9 Gastro-esophageal reflux disease without esophagitis; Z85.850 Personal history of malignant neoplasm of thyroid; Z98.1 Arthrodesis status
CPT/HCPCS: 36415; 71045; 73221; 80053; 81001; 82306; 82550; 82553; 83615; 83735; 84100; 84439; 84443; 84484; 85025; 85027; 85610; 85730; 87086; 93005; 93970; 99284; G0378; J1644

== ENCOUNTER 2017-12-06 15:50 | Inpatient (IN) | payer MEDICAID, OTHER ==
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
[2017-12-06 16:09] VITALS: BMI 38.2
--- NOTE | 2017-12-06 17:16 | RAD ---
Date of service: 12/06/2017 HISTORY: chest pain COMPARISON: 03/25/2017 FINDINGS: LUNGS: No active pulmonary disease. PLEURA: No significant pleural effusion identified, no pneumothorax apparent. CARDIOVASCULAR: Normal. OSSEOUS STRUCTURES: No significant abnormalities. VISUALIZED UPPER ABDOMEN: Normal. OTHER FINDINGS: None. IMPRESSION: No active disease.
[2017-12-06 17:46] LABS: PH,URINE 5.5 (4.7-8.0); URINE BILIRUBIN NEGATIVE (NEGATIVE); URINE BLOOD NEGATIVE (NEGATIVE); URINE GLUCOSE (UA) NEGATIVE (NEGATIVE); URINE LEUKOCYTE ESTERASE SMALL Leu/uL (NEGATIVE); URINE PROTEIN NEGATIVE mg/dL (<30 mg/dL); URINE UROBILINOGEN 0.2 E.U./dL (<1 E.U./dL)
[2017-12-06 17:55] LABS: HEMOGLOBIN 10.8 g/dL (12.0-16.0); MEAN CORPUSCULAR HEMOGLOBIN 25.5 pg (25.0-35.0); RBC 4.24 10^6/uL (3.5-6.1); WHITE BLOOD COUNT 6.2 10^3/ul (4.5-11.0)
[2017-12-06 17:56] LABS: ALB/GLOB RATIO 1.1 (1.1-1.8); ALT/SGPT 18 U/L (7-56); AST/SGOT 26 U/L (14-36); BASO # 0.03 K/mm3 (0.0-2.0); BASO % 0.5 % (0.0-3.0); BLOOD UREA NITROGEN 22 mg/dL (7-21); CALCIUM 8.5 mg/dL (8.4-10.5); EOS # 0.3 (0.0-0.7); GFR NON-AFRICAN AMERICAN > 60; GRAN # 2.92 (1.4-6.5); GRAN % 46.8 % (50.0-68.0); LYMPH # 2.4 (1.2-3.4); LYMPH % 38.9 % (22.0-35.0); MEAN CORPUSCULAR HGB CONC 31.9 g/dl (31.0-37.0); MEAN PLATELET VOLUME 11.4 fl (7.0-11.0); MONO # 0.6 (0.1-0.6); MONO % 9.8 % (1.0-6.0); RED CELL DISTRIBUTION WIDTH 15.1 % (11.5-14.5)
[2017-12-06 18:01] LABS: URINE APPEARANCE CLEAR (CLEAR); URINE COLOR YELLOW (YELLOW)
[2017-12-06 18:06] LABS: B-TYPE NATRIURETIC PEPTIDE 268 pg/mL (0-450); TROPONIN I < 0.01 ng/mL
--- NOTE | 2017-12-06 18:50 | CARD ---
APPROVED REPORT Date of service: 12/06/2017 EKG Measurement Heart [id number] <Conclusion> Normal sinus rhythm with sinus arrhythmia
[2017-12-06] MEDS ORDERED: Alum-Mag Hydrox-Simethicone Susp (30 mL) PO PRN (21:30)
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
[2017-12-06] MEDS ORDERED: Oxycodone/Acetaminophen 5/325 mg Tab PO PRN (23:08)
[2017-12-07] MEDS ORDERED: Levothyroxine 200 MCG TAB PO SCH (06:30)
[2017-12-07 07:27] LABS: BASO # 0.03 K/mm3 (0.0-2.0); BASO % 0.5 % (0.0-3.0); EOS # 0.3 (0.0-0.7); EOS % 4.5 % (1.5-5.0); GRAN # 2.65 (1.4-6.5); GRAN % 45.7 % (50.0-68.0); HEMOGLOBIN 10.3 g/dL (12.0-16.0); LYMPH # 2.3 (1.2-3.4); LYMPH % 40.3 % (22.0-35.0); MEAN CELL VOLUME 79.5 fl (80.0-105.0); MEAN CORPUSCULAR HEMOGLOBIN 25.1 pg (25.0-35.0); MEAN CORPUSCULAR HGB CONC 31.6 g/dl (31.0-37.0); MONO # 0.5 (0.1-0.6); RBC 4.1 10^6/uL (3.5-6.1); RED CELL DISTRIBUTION WIDTH 14.6 % (11.5-14.5); WHITE BLOOD COUNT 5.8 10^3/ul (4.5-11.0)
[2017-12-07 07:46] LABS: LDL CHOLESTEROL 89 mg/dL (0-129)
[2017-12-07 08:05] LABS: ALB/GLOB RATIO 1.1 (1.1-1.8); ALBUMIN 3.6 g/dL (3.0-4.8); ALT/SGPT 20 U/L (7-56); AST/SGOT 21 U/L (14-36); BLOOD UREA NITROGEN 15 mg/dL (7-21); CALCIUM 8.3 mg/dL (8.4-10.5); GFR NON-AFRICAN AMERICAN > 60; HDL CHOLESTEROL 47 mg/dL (29-60)
[2017-12-07] MEDS: cefTRIAXone 1 gm 1 GM/100 ML BAG IVPB SCH (09:58)
--- NOTE | 2017-12-07 11:37 | CARD ---
APPROVED REPORT Date of service: 12/07/2017 EKG Measurement Heart [id number] <Conclusion> Sinus bradycardia with sinus arrhythmia Otherwise normal ECG
--- NOTE | 2017-12-07 14:53 | CP.PCM.PN ---
<Roderick Johnson - Last Filed: 12/07/17 14:30> Subjective - Date & Time of Evaluation Date of Evaluation: 12/07/17 Time of Evaluation: 11:00 - Subjective Subjective: Roderick Johnson Internal Medicine Resident- Progress Note On Behalf of Hospitalist Team Subjective: Patient seen and examined at bedside. Resting comfortably in bed. No acute overnight events. Patient states chest pain has improved relative to baseline. Offers no new complaints at this time. Denies fever, chills, shortness of breath, abdominal pain, nausea, vomiting, diarrhea, constipation, and urinary symptoms. 12-point review of systems negative except as indicated in the HPI Physical Examination: - Constitutional Appears: Well, Non-toxic, No Acute Distress - Head Exam Head Exam: ATRAUMATIC, NORMOCEPHALIC - Eye Exam Eye Exam: EOMI, Normal appearance - ENT Exam ENT Exam: Mucous Membranes Moist - Neck Exam Neck exam: Positive for: Normal Inspection. Negative for: Meningismus, Tenderness, Thyromegaly - Respiratory Exam Respiratory Exam: Clear to Auscultation Bilateral, NORMAL BREATHING PATTERN. absent: Rales, Rhonchi, Wheezes - Cardiovascular Exam Cardiovascular Exam: RRR, +S1, +S2. absent: Bradycardia, Gallop, JVD - GI/Abdominal Exam GI & Abdominal Exam: Normal Bowel Sounds, Soft. absent: Distended, Guarding, Rebound, Tenderness - Extremities Exam Extremities exam: Positive for: tenderness. Negative for: calf tenderness, pedal edema - Back Exam Back exam: absent: CVA tenderness (L), CVA tenderness (R), paraspinal tenderness - Neurological Exam Neurological exam: Alert, Oriented x3 - Psychiatric Exam Psychiatric exam: Normal Affect, Normal Mood - Skin Skin Exam: Dry, Intact, Normal Color, Warm Assessment and Plan: Patient is a 72 year old Citizen Of [place] female with a past medical history of HTN, OA, bradycardia, thyroid cancer s/p thyroidectomy/parathyroidectomy, GERD who was admitted for evaluation and treatment of reproducible chest pain and UTI. Chest Pain- r/o ACS - EKG NSR @ [address] elevations or T wave changes - Chest xray: no active disease - Troponins < 0.01 x 2 - Echo ordered and pending, Prior echo 10/11 shows EF 55% and RVSP 24 - Lipid panel- within normal limits - F/u hgb a1c - c/w ASA and statin - Cardiology consulted Dr Cam- appreciate recommendations UTI - UA showed leuk esterase and nitrate +, WBC 15 in setting of dysuria, frequency and urgency - Received Nitrofurantoin in ED - Rocephin IV 1 gm daily Hx of Thyroid Cancer s/p Thyroidectomy/Parathyroidectomy - TSH low < 0.02 - synthroid dose given this AM, held for now due to high dosage - trophy assembler consulted- appreciate recommendations Hx of HTN - continue home meds Hydralazine, Lasix and Lisinopril - continue to monitor BP GERD - no alarming symptoms - Protonix 40 mg IVP - Maalox 30 mL PO daily Normocytic Anemia - Hgb 10.3 from 10.8 - no trauma or bleeding reported - continue to monitor Chronic pain - c/w home Percocet and Gabapentin Gait Instability - Physical therapy- recommends TCU GI/DVT Prophylaxis - Heparin 5000 SC Q8h - Protonix Patient seen, case discussed with, and plan approved by attending physician, Dr. Lizarraga. Objective - Vital Signs/Intake and Output Vital Signs (last 24 hours): Temp Pulse Resp BP Pulse Ox 97.8 F 69 18 160/80 H 98 12/07/17 12:00 12/07/17 14:24 12/07/17 12:00 12/07/17 14:24 12/07/17 09:00 Intake and Output: 12/07/17 12/07/17 06:59 18:59 Intake Total 180 Output Total 950 Balance -770 - Medications Medications: Current Medications Al Hydrox/Mg Hydrox/Simethicone (Maalox Plus 30 Ml) 30 ml PO DAILY PRN PRN Reason: Indigestion / Heartburn Aspirin (Ecotrin) 81 mg PO DAILY [facility] Last Admin: 12/07/17 09:57 Dose: 81 mg Atorvastatin Calcium (Lipitor) 10 mg PO HS [facility] Docusate Sodium (Colace) 100 mg PO TID [facility] Last Admin: 12/07/17 14:24 Dose: 100 mg Furosemide (Lasix) 40 mg PO DAILY [facility] Last Admin: 12/07/17 09:55 Dose: 40 mg Gabapentin (Neurontin) 100 mg PO HS [facility]; Protocol Heparin Sodium (Porcine) (Heparin) 5,000 units SC Q12 [facility]; Protocol Last Admin: 12/07/17 09:54 Dose: 5,000 units Hydralazine HCl (Apresoline) 50 mg PO TID [facility] Last Admin: 12/07/17 14:24 Dose: 50 mg Ceftriaxone Sodium (Rocephin 1 Gram Ivpb) 1 gm in 100 mls @ 100 mls/hr IVPB DAILY [facility]; Protocol Last Admin: 12/07/17 09:58 Dose: 100 mls/hr Levothyroxine Sodium (Synthroid) 400 mcg PO DAILY@0630 [facility] Last Admin: 12/07/17 06:28 Dose: 400 mcg Lisinopril (Zestril) 20 mg PO DAILY [facility] Last Admin: 12/07/17 09:56 Dose: 20 mg Oxycodone/Acetaminophen (Percocet 5/325 Mg Tab) 1 tab PO Q6H PRN PRN Reason: Pain, severe (8-10) Stop: 12/09/17 23:09 Pantoprazole Sodium (Protonix Inj) 40 mg IVP DAILY [facility] Last Admin: 12/07/17 09:55 Dose: 40 mg - Labs Labs: 12/07/17 06:00 12/07/17 06:00 <Lien Lizarraga - Last Filed: 12/07/17 15:01> Objective - Vital Signs/Intake and Output Vital Signs (last 24 hours): Temp Pulse Resp BP Pulse Ox 97.8 F 69 18 160/80 H 98 12/07/17 12:00 12/07/17 14:24 12/07/17 12:00 12/07/17 14:24 12/07/17 09:00 Intake and Output: 12/07/17 12/07/17 06:59 18:59 Intake Total 180 Output Total 950 Balance -770 - Medications Medications: Current Medications Al Hydrox/Mg Hydrox/Simethicone (Maalox Plus 30 Ml) 30 ml PO DAILY PRN PRN Reason: Indigestion / Heartburn Aspirin (Ecotrin) 81 mg PO DAILY [facility] Last Admin: 12/07/17 09:57 Dose: 81 mg Atorvastatin Calcium (Lipitor) 10 mg PO HS [facility] Docusate Sodium (Colace) 100 mg PO TID [facility] Last Admin: 12/07/17 14:24 Dose: 100 mg Furosemide (Lasix) 40 mg PO DAILY [facility] Last Admin: 12/07/17 09:55 Dose: 40 mg Gabapentin (Neurontin) 100 mg PO HS [facility]; Protocol Heparin Sodium (Porcine) (Heparin) 5,000 units SC Q8 [facility]; Protocol Hydralazine HCl (Apresoline) 50 mg PO TID [facility] Last Admin: 12/07/17 14:24 Dose: 50 mg Ceftriaxone Sodium (Rocephin 1 Gram Ivpb) 1 gm in 100 mls @ 100 mls/hr IVPB DAILY [facility]; Protocol Last Admin: 12/07/17 09:58 Dose: 100 mls/hr Levothyroxine Sodium (Synthroid) 400 mcg PO DAILY@0630 [facility] Last Admin: 12/07/17 06:28 Dose: 400 mcg Lisinopril (Zestril) 20 mg PO DAILY [facility] Last Admin: 12/07/17 09:56 Dose: 20 mg Oxycodone/Acetaminophen (Percocet 5/325 Mg Tab) 1 tab PO Q6H PRN PRN Reason: Pain, severe (8-10) Stop: 12/09/17 23:09 Pantoprazole Sodium (Protonix Inj) 40 mg IVP DAILY [facility] Last Admin: 12/07/17 09:55 Dose: 40 mg - Labs Labs: 12/07/17 06:00 12/07/17 06:00 Attending/Attestation - Attestation I have personally seen and examined this patient.: Yes I have fully participated in the care of the patient.: Yes I have reviewed all pertinent clinical information, including history, physical exam and plan: Yes Notes (Text): 12/07/17 14:55 72 year old female with past medical history of hypertension, thyroid cancer s/p thyroidectomy who presented with complaint of chest pain. Serial cardiac enzymes x 2 are negative. Cardiology evaluation is pending. Echocardiogram was done this morning. Patient reports chest pain has resolved. Will follow up with cardiology recommendations. Continue with aspirin and statin. She is on antibiotics for possible UTI. Ucx is pending. TSH was low <0.02. She is on 400 mcg of synthroid which will need to be adjusted. Endocrinology evaluation is requested; will follow up with recommendations. Patient complains of unsteady gait. She was seen by PT who is recommending TCU. Lien Lizarraga MD Hospitalist.
[2017-12-07 16:50] LABS: TROPONIN I < 0.01 ng/mL
--- NOTE | 2017-12-07 21:46 | CON ---
DATE: 12/06/2017 ENDOCRINOLOGY CONSULT HISTORY OF PRESENT ILLNESS: This is a 72-year-old female with known history of thyroid carcinoma with prior thyroidectomy, currently on levothyroxine at a high dose of 400 mcg daily and admitted here with left-sided precordial chest pain and currently undergoing cardiac workup and management and is being referred now for endocrine evaluation and management. PAST MEDICAL HISTORY: As mentioned above, history of thyroid carcinoma and underwent a total thyroidectomy about 4 years ago and has been on levothyroxine replacement therapy at the high dose of 400 mcg daily as noted. History of hypertensive cardiovascular disease and dyslipidemia, history of lumbar disc disease with subsequent lumbar spinal fusion surgery. History also of diffuse osteoarthritis with bilateral total knee replacement also some years ago, apparent history of sinus bradycardia as noted, and also with a comprehensive cardiac workup undertaken with Dr. Garcai, her grades 1 6 tutor which showed that her cardiac cath, was normal. FAMILY HISTORY: Positive for hypertension and diabetes and bladder cancer. SOCIAL HISTORY: The patient has supportive family. No known substance use. REVIEW OF SYSTEMS: As mentioned above, with sudden bouts of dizziness and lightheadedness, worse in the last 2 to 3 days prior to admission. Also admits to bifrontal headaches and disrupted sleep and insomnia, admits to recent onset of left-sided precordial chest pain with progressive shortness of breath, especially on exertion. Her oral intake has been variable with occasional dyspepsia and vague upper abdominal pains. No recent alterations of bowel and urinary patterns. PHYSICAL EXAMINATION: She is an obese female in no apparent distress with a blood pressure of 140/80, pulse of 70 beats per minute regular. Temperature 98, respirations 20, height is 5 feet 3 inches, weight is 214 pounds. HEENT: Head normocephalic. Eyes anicteric with pink conjunctivae. Funduscopy not possible at this time. Ears, Nose, and Throat: Otherwise normal. NECK: Supple. The thyroid gland is nonpalpable with a flat thyroid bed surface. No cervical adenopathy noted otherwise. No carotid bruits or any cervical adenopathy. CARDIOPULMONARY: Adynamic precordium. S1, S2 is rapid and regular. Lungs are clear to auscultation. Abdomen is flat, soft with positive bowel sounds. EXTREMITIES: No peripheral edema. Pulses are +2 bilaterally. LABORATORIES: Showed a BUN of 15, sodium 141, potassium 3.7, chloride 106, CO2 of 29, glucose 95, and creatinine 0.6. Her thyroid studies showed a free T4 of 1.60 with a TSH of less than 0.02. 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 Her previous outpatient cardiac workup showed normal coronaries with a cardiac cath done by her grades 1 6 tutor. Moreover, with thyroid over replacement, and also the upper mentioned evidence of TSH suppression, then we can expect episodic bouts of precordial chest pain and palpitations accordingly. However, with thyroid carcinoma, the biggest challenge is balancing the levothyroxine replacement therapy from over suppression and palpitations and precordial chest pains accordingly. PLAN OF MANAGEMENT: We will obtain a comprehensive thyroid hormonal profile to include a total and free T4 and TSH tomorrow morning. This will give us the degree of hyperthyroxinemia, if present at all. A thyroglobulin panel will be obtained to screen for underlying thyroid cancer recurrence accordingly. We will obtain serial chemistries and supplement accordingly as needed. We will follow with you. Jenny Waite MD cc: MD Sonal
--- NOTE | 2017-12-07 22:22 | CARD ---
APPROVED REPORT Date of service: 12/07/2017 EXAM: Two-dimensional and M-mode echocardiogram with Doppler and color Doppler. INDICATION CP, BASELINE 2D DIMENSIONS Left Atrium (2D)3.9 (1.6-4.0cm)IVSd1.1 (0.7-1.1cm) LVDd5.2 (3.9-5.9cm)PWd1.0 (0.7-1.1cm) LVDs3.5 (2.5-4.0cm)FS (%) 33.8 % LVEF (%)62.2 (>50%) M-Mode DIMENSIONS Aortic Root3.00 (2.2-3.7cm)Aortic Cusp Exc.2.00 (1.5-2.0cm) Aortic Valve AoV Peak Oxeyelaq958.0cm/Robbin Peak GR.12mmHg Mitral Valve MV E Mhqhjjty57.8cm/sMV A Bnqgrmby334.0cm/sE/A ratio0.9 TDI Lateral E' Peak V9.75cm/sMedial E' Peak V8.50cm/sE/Lateral E'9.6 E/Medial E'11.0 Tricuspid Valve TR Peak Fksvtnbz424hi/sRAP [id number] Peak Gr.29mmHg [id number] LEFT VENTRICLE The left ventricle is normal size. There is normal left ventricular wall thickness. The left ventricular function is normal.EF-55-60% There is normal LV segmental wall motion. Transmitral Doppler flow pattern is Grade III-reversible restrictive diastolic dysfunction. No left ventricle thrombus noted on this study. There is no ventricular septal defect visualized. There is no left ventricular aneurysm. There is no mass noted in the left ventricle. RIGHT VENTRICLE The right ventricle is normal size. There is normal right ventricular wall thickness. The right ventricular systolic function is normal. ATRIA The left atrium size is normal. The right atrium size is normal. The interatrial septum is intact with no evidence for an atrial septal defect. AORTIC VALVE The aortic valve is normal in structure. There is trace aortic regurgitation. There is no aortic valvular stenosis. There is no aortic valvular vegetation. MITRAL VALVE The mitral valve is thickened but opens well. Mitral regurgitation is Trace. There is no mitral valve stenosis. There is no evidence of mitral valve prolapse. TRICUSPID VALVE The tricuspid valve leaflets are thickened , but open well. There is trace tricuspid regurgitation. There is no tricuspid valve stenosis. There is no tricuspid valve prolapse or vegetation. PULMONIC VALVE The pulmonic valve is borderline thickened. There is trace pulmonic valvular regurgitation. There is no pulmonic valvular stenosis. GREAT VESSELS The aortic root is normal in size. The ascending aorta is normal in size. The pulmonary artery is normal. The IVC is normal in size and collapses >50% with inspiration. PERICARDIAL EFFUSION There is no pleural effusion. There is no pericardial effusion. <Conclusion> Normal Chamber Size.EF-55-60%. Trace MR/TR/AR/PI. RVSP-39 mm of Hg.
[2017-12-08] MEDS: Pantoprazole 40 mg EC Tab PO SCH (05:53)
[2017-12-08 07:18] LABS: ALB/GLOB RATIO 1.1 (1.1-1.8); ALBUMIN 3.8 g/dL (3.0-4.8); ALT/SGPT 20 U/L (7-56); AST/SGOT 22 U/L (14-36); BLOOD UREA NITROGEN 20 mg/dL (7-21); CALCIUM 8.5 mg/dL (8.4-10.5); GFR NON-AFRICAN AMERICAN > 60
[2017-12-08 07:30] LABS: BASO # 0.04 K/mm3 (0.0-2.0); BASO % 0.8 % (0.0-3.0); EOS # 0.2 (0.0-0.7); EOS % 3.8 % (1.5-5.0); FREE T4 1.62 ng/dL (0.78-2.19); GRAN # 1.87 (1.4-6.5); GRAN % 35.7 % (50.0-68.0); HEMOGLOBIN 10.4 g/dL (12.0-16.0); LYMPH # 2.5 (1.2-3.4); LYMPH % 48.2 % (22.0-35.0); MEAN CELL VOLUME 78.7 fl (80.0-105.0); MEAN CORPUSCULAR HEMOGLOBIN 24.9 pg (25.0-35.0); MEAN CORPUSCULAR HGB CONC 31.6 g/dl (31.0-37.0); MEAN PLATELET VOLUME 10.8 fl (7.0-11.0); MONO # 0.6 (0.1-0.6); MONO % 11.5 % (1.0-6.0); RBC 4.18 10^6/uL (3.5-6.1); RED CELL DISTRIBUTION WIDTH 14.7 % (11.5-14.5); T4 12.2 ug/dL (5.5-11.0); WHITE BLOOD COUNT 5.2 10^3/ul (4.5-11.0)
[2017-12-08] MEDS: cefTRIAXone 1 gm 1 GM/100 ML BAG IVPB SCH (10:24)
--- NOTE | 2017-12-08 10:58 | CP.PCM.PN ---
<Lang Momin - Last Filed: 12/08/17 10:44> Subjective - Date & Time of Evaluation Date of Evaluation: 12/08/17 Time of Evaluation: 10:44 - Subjective Subjective: PGY-2 medicine progress note for Dr Lizarraga No acute events noted overnight. Patient stated her biggest complaint was her inability to keep a steady gait. She stated she used a walker that she borrowed in the past which helped her. She otherwise denied pain. She had just eaten her breakfast. 12-point review of systems negative except as indicated in the HPI Objective - Vital Signs/Intake and Output Vital Signs (last 24 hours): Temp Pulse Resp BP Pulse Ox 97.4 F L 70 20 126/66 95 12/08/17 06:00 12/08/17 09:39 12/08/17 06:00 12/08/17 09:39 12/08/17 06:00 Intake and Output: 12/08/17 12/08/17 06:59 18:59 Intake Total 1260 Balance 1260 - Medications Medications: Current Medications Al Hydrox/Mg Hydrox/Simethicone (Maalox Plus 30 Ml) 30 ml PO DAILY PRN PRN Reason: Indigestion / Heartburn Aspirin (Ecotrin) 81 mg PO DAILY [facility] Last Admin: 12/08/17 09:40 Dose: 81 mg Atorvastatin Calcium (Lipitor) 10 mg PO HS [facility] Last Admin: 12/07/17 23:02 Dose: 10 mg Docusate Sodium (Colace) 100 mg PO TID [facility] Last Admin: 12/08/17 09:39 Dose: 100 mg Furosemide (Lasix) 40 mg PO DAILY [facility] Last Admin: 12/08/17 09:39 Dose: 40 mg Gabapentin (Neurontin) 100 mg PO HS [facility]; Protocol Last Admin: 12/07/17 22:57 Dose: 100 mg Heparin Sodium (Porcine) (Heparin) 5,000 units SC Q8 [facility]; Protocol Last Admin: 12/08/17 05:52 Dose: 5,000 units Hydralazine HCl (Apresoline) 50 mg PO TID [facility] Last Admin: 12/08/17 09:39 Dose: 50 mg Ceftriaxone Sodium (Rocephin 1 Gram Ivpb) 1 gm in 100 mls @ 100 mls/hr IVPB DAILY [facility]; Protocol Last Admin: 12/08/17 10:24 Dose: 100 mls/hr Levothyroxine Sodium (Synthroid) 400 mcg PO DAILY@0630 [facility] Last Admin: 12/07/17 06:28 Dose: 400 mcg Lisinopril (Zestril) 20 mg PO DAILY [facility] Last Admin: 12/08/17 09:39 Dose: 20 mg Oxycodone/Acetaminophen (Percocet 5/325 Mg Tab) 1 tab PO Q6H PRN PRN Reason: Pain, severe (8-10) Stop: 12/09/17 23:09 Pantoprazole Sodium (Protonix Ec Tab) 40 mg PO 0600 [facility] Last Admin: 12/08/17 05:53 Dose: 40 mg - Labs Labs: 12/08/17 06:00 12/08/17 06:00 - Additional Findings Additional findings: - Constitutional Appears: Well, Non-toxic, No Acute Distress - Head Exam Head Exam: ATRAUMATIC, NORMOCEPHALIC - Eye Exam Eye Exam: EOMI, Normal appearance - ENT Exam ENT Exam: Mucous Membranes Moist - Neck Exam Neck exam: Positive for: Normal Inspection. Negative for: Meningismus, Tenderness, Thyromegaly - Respiratory Exam Respiratory Exam: Clear to Auscultation Bilateral, NORMAL BREATHING PATTERN. absent: Rales, Rhonchi, Wheezes - Cardiovascular Exam Cardiovascular Exam: RRR, +S1, +S2. absent: Bradycardia, Gallop, JVD - GI/Abdominal Exam GI & Abdominal Exam: Normal Bowel Sounds, Soft. absent: Distended, Guarding, Rebound, Tenderness - Extremities Exam Extremities exam: Positive for: tenderness. Negative for: calf tenderness, pe yessi edema - Back Exam Back exam: absent: CVA tenderness (L), CVA tenderness (R), paraspinal tenderness - Neurological Exam Neurological exam: Alert, Oriented x3 - Psychiatric Exam Psychiatric exam: Normal Affect, Normal Mood - Skin Skin Exam: Dry, Intact, Normal Color, Warm Assessment and Plan - Assessment and Plan (Free Text) Plan: Assessment and Plan: Patient is a 72 year old [place] female with a past medical history of HTN, OA, bradycardia, thyroid cancer s/p thyroidectomy/parathyroidectomy, GERD who was admitted for evaluation and treatment of reproducible chest pain and UTI. Chest Pain- r/o ACS - EKG NSR @ [address] elevations or T wave changes - Chest xray: no active disease - Troponins < 0.01 x 3 - Echo normal on this admission, Prior echo 10/11 shows EF 55% and RVSP 24 - Lipid panel- within normal limits - hgb a1c 6.1 - c/w ASA 81mg po qd and lipitor 10mg po hs - Cardiology consulted Dr Cam- appreciate recommendations UTI - UA showed leuk esterase and nitrate +, WBC 15 in setting of dysuria, frequency and urgency - Urine Cx showed gram negative rods - Received Nitrofurantoin in ED - Rocephin IV 1 gm daily Hx of Thyroid Cancer s/p Thyroidectomy/Parathyroidectomy - TSH and repeat TSH both low <0.02 - synthroid dose held for now due to high dosage until net c developer input - net c developer consulted- appreciate recommendations - Thyroxine (T4) high at 12.2 - f/u thyroid peroxidase and thyroglobulin Hx of HTN - continue home meds Hydralazine 50mg po tid, Lasix 40mg po qd and Lisinopril 20mg po qd - continue to monitor BP GERD - no alarming symptoms - Protonix 40 mg IVP - Maalox 30 mL PO daily Normocytic Anemia - Hgb 10.3 from 10.8 - no trauma or bleeding reported - continue to monitor Chronic pain - c/w home Percocet and Gabapentin Gait Instability - Physical therapy - recommends TCU - however patient is jase care thus we are limited in terms of what we can do. She will likely need a rolling walker when she is ready to go home. GI/DVT Prophylaxis - Heparin 5000 SC Q8h - Protonix Patient seen, case discussed with, and plan approved by attending physician, Dr. Lizarraga. <Lien Lizarraga - Last Filed: 12/08/17 13:06> Objective - Vital Signs/Intake and Output Vital Signs (last 24 hours): Temp Pulse Resp BP Pulse Ox 98.1 F 57 L 19 169/77 H 95 12/08/17 12:00 12/08/17 12:00 12/08/17 12:00 12/08/17 12:00 12/08/17 06:00 Intake and Output: 12/08/17 12/08/17 06:59 18:59 Intake Total 1260 Balance 1260 - Medications Medications: Current Medications Al Hydrox/Mg Hydrox/Simethicone (Maalox Plus 30 Ml) 30 ml PO DAILY PRN PRN Reason: Indigestion / Heartburn Aspirin (Ecotrin) 81 mg PO DAILY [facility] Last Admin: 12/08/17 09:40 Dose: 81 mg Atorvastatin Calcium (Lipitor) 10 mg PO HS [facility] Last Admin: 12/07/17 23:02 Dose: 10 mg Docusate Sodium (Colace) 100 mg PO TID [facility] Last Admin: 12/08/17 09:39 Dose: 100 mg Furosemide (Lasix) 40 mg PO DAILY [facility] Last Admin: 12/08/17 09:39 Dose: 40 mg Gabapentin (Neurontin) 100 mg PO HS [facility]; Protocol Last Admin: 12/07/17 22:57 Dose: 100 mg Heparin Sodium (Porcine) (Heparin) 5,000 units SC Q8 [facility]; Protocol Last Admin: 12/08/17 05:52 Dose: 5,000 units Hydralazine HCl (Apresoline) 50 mg PO TID [facility] Last Admin: 12/08/17 09:39 Dose: 50 mg Ceftriaxone Sodium (Rocephin 1 Gram Ivpb) 1 gm in 100 mls @ 100 mls/hr IVPB DAILY [facility]; Protocol Last Admin: 12/08/17 10:24 Dose: 100 mls/hr Levothyroxine Sodium (Synthroid) 400 mcg PO DAILY@0630 [facility] Last Admin: 12/07/17 06:28 Dose: 400 mcg Lisinopril (Zestril) 20 mg PO DAILY [facility] Last Admin: 12/08/17 09:39 Dose: 20 mg Oxycodone/Acetaminophen (Percocet 5/325 Mg Tab) 1 tab PO Q6H PRN PRN Reason: Pain, severe (8-10) Stop: 12/09/17 23:09 Pantoprazole Sodium (Protonix Ec Tab) 40 mg PO 0600 [facility] Last Admin: 12/08/17 05:53 Dose: 40 mg - Labs Labs: 12/08/17 06:00 12/08/17 06:00 Attending/Attestation - Attestation I have personally seen and examined this patient.: Yes I have fully participated in the care of the patient.: Yes I have reviewed all pertinent clinical information, including history, physical exam and plan: Yes Notes (Text): 12/08/17 13:03 72 year old female with past medical history of hypertension, thyroid cancer s/p thyroidectomy who presented with complaint of chest pain. Serial cardiac enzymes x 3 were negative and ACS was ruled out. Cardiology evaluation is pending. Patient reports chest pain has resolved. Echocardiogram was reviewed. Continue with aspirin and statin. She is on antibiotics for UTI. Ucx is growing gram negative rods. TSH was low <0.02. Endocrinology evaluation was appreciated. Will follow up with Dr. Waite's recommendation regarding adjusting synthroid dose. Patient complains of unsteady gait and chronic knee/back pain from osteo athritis. Patient lives alone. She was seen by PT who recommended TCU. Continue with physical therapy. May benefit with cane or walker upon discharge. Lien Lizarraga MD Hospitalist.
--- NOTE | 2017-12-08 16:54 | PN ---
DATE: 12/08/2017 ENDOCRINOLOGY FOLLOWUP NOTE LOCATION: Room 268. 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 We have actually withheld the Synthroid given at the high dose of 400 mcg and the pills available at bedside actually holding the levothyroxine dosing regimen as noted. She remains hyperadrenergic with constitutional manifestations related to the upper mentioned condition. Her glycemic levels have been optimal as noted. LABORATORY DATA: Showed a BUN of 20. Sodium 140, potassium 3.6, chloride 102, CO2 of 30. Glucose of 101. Creatinine 0.7. ASSESSMENT: This is a 72-year-old female with recent metabolic followup for a known history of total thyroidectomy and as noted with no exact histopathology available at this time. PLAN OF MANAGEMENT: We will hold off the resumption of the levothyroxine therapy at this time because it takes 5 to 7 days for therapeutic washout of the previously elevated thyroid hormones as noted. We will obtain serial thyroid studies and titrate the dose regimen accordingly. As mentioned above, will take 5 to 7 days for full therapeutic washout of the levothyroxine given as high dose as noted. We will follow up. Jenny Waite MD
--- NOTE | 2017-12-08 23:15 | CON ---
DATE OF CONSULTATION: 12/08/2017 CARDIOLOGY CONSULTATION REFERRING PHYSICIAN: Dave Cam MD HISTORY: The patient is a 72-year-old woman who presents with recurrence of chest pain. This is one of multiple admissions. She underwent cardiac catheterization earlier this year by Dr. Marroquin in [facility] for similar symptoms. Her coronary arteries were normal. She suffers from body pains, hypertension, hypercholesterolemia, and is on chronic oxycodone. SOCIAL HISTORY: She denies smoking. REVIEW OF SYSTEMS: Noncontributory. PHYSICAL EXAMINATION: Blood pressure is 126 systolic, varying with 169 systolic, heart rate is in the 50s. NECK: Negative JVD. LUNGS: Without rales. HEART: S1, S2. EXTREMITIES: Without edema. EKG is within normal limits. Hemoglobin is 10.4. Troponin is negative x1. IMPRESSION: 1. No evidence for acute coronary syndrome. 2. Chronic chest pain and body pains. 3. Hypertension. 4. Hypercholesterolemia. Given these findings, there is no further cardiac workup necessary. Heart catheterization less than a year ago was normal. We will discontinue telemetry today. Chino Bejarano MD
[2017-12-09] MEDS: Pantoprazole 40 mg EC Tab PO SCH (06:16)
[2017-12-09 07:16] LABS: BASO # 0.04 K/mm3 (0.0-2.0); BASO % 0.6 % (0.0-3.0); EOS # 0.3 (0.0-0.7); EOS % 4.1 % (1.5-5.0); GRAN # 2.85 (1.4-6.5); GRAN % 41.7 % (50.0-68.0); HEMOGLOBIN 10.8 g/dL (12.0-16.0); MEAN CELL VOLUME 78.9 fl (80.0-105.0); MEAN CORPUSCULAR HEMOGLOBIN 25.1 pg (25.0-35.0); MEAN CORPUSCULAR HGB CONC 31.8 g/dl (31.0-37.0); MEAN PLATELET VOLUME 10.7 fl (7.0-11.0); MONO # 0.7 (0.1-0.6); MONO % 9.6 % (1.0-6.0); RBC 4.31 10^6/uL (3.5-6.1); RED CELL DISTRIBUTION WIDTH 14.5 % (11.5-14.5); WHITE BLOOD COUNT 6.8 10^3/ul (4.5-11.0)
[2017-12-09 07:39] LABS: ALB/GLOB RATIO 1.1 (1.1-1.8); ALBUMIN 3.9 g/dL (3.0-4.8); ALT/SGPT 18 U/L (7-56); AST/SGOT 32 U/L (14-36); BLOOD UREA NITROGEN 31 mg/dL (7-21); CALCIUM 8.7 mg/dL (8.4-10.5); GFR NON-AFRICAN AMERICAN > 60
[2017-12-09] MEDS: cefTRIAXone 1 gm 1 GM/100 ML BAG IVPB SCH (09:50)
--- NOTE | 2017-12-09 11:23 | PN ---
DATE: 12/09/2017 ENDO FOLLOWUP NOTE LOCATION: In room 571. SUBJECTIVE: This is a 72-year-old female, admitted with precordial chest pain of recurrent nature and currently undergoing cardiac workup and management and is also being followed closely for metabolic management. She has significant history of surgical hypothyroidism and currently on a high dose of levothyroxine replacement therapy as noted. She remains clinically euthyroid at this time and biochemically had evidence of a very suppressed TSH and so we have withheld the levothyroxine replacement therapy as it takes 5-7 days for a complete therapeutic washout of the medication as given thereof. She was using levothyroxine at 400 mcg once daily as given. Her latest thyroid study showed a T4 of 12.2, which is elevated and a TSH of less than 0.02 and a free T4 of 1.62. Chemistry showed a BUN of 31, sodium 141, potassium 3.9, chloride 103, CO2 of 31, glucose 106 and creatinine 0.7. ASSESSMENT: This is a 72-year-old female with acute coronary syndrome, currently undergoing cardiac workup and management and is also being followed closely for metabolic management because of recent hyperthyroxinemia indicative of possible levothyroxine over replacement therapy for underlying hypothyroidism post total thyroidectomy as noted thereof. PLAN OF MANAGEMENT: We will resume the levothyroxine only if the total T4 levels go at least below 10 mcg/dL. We will resume a lower dose of the levothyroxine as indicated to optimize metabolic control. It takes 5-7 days for a complete therapeutic washout of the medications before reassume and renew her levothyroxine medication as noted. We will obtain a serum thyroglobulin level and also a thyroid peroxidase antibody and also a quantitative thyroglobulin level to ascertain any underlying activity of the thyroid remnant as noted. We will follow. Jenny Waite MD
--- NOTE | 2017-12-09 15:58 | CP.PCM.PN ---
Addendum entered and electronically signed by Brandi Frost DO 12/09/17 18:13: [place] [id number] Original Note: <Brandi Frost - Last Filed: 12/09/17 15:53> Subjective - Date & Time of Evaluation Date of Evaluation: 12/09/17 Time of Evaluation: 11:45 - Subjective Subjective: PGY-1 Medicine Progress note for Dr. Celaya's service Chief Gauger Ivon #[id number] Patient seen and examined at bedside. Extensive conversation was had with call taker. Patient has poor followup with no family. Patient has a neighbor who lives in [place] with patient however about 15 blocks away. Patient does not remember her primary doctor or the surgeon who did her thyroid surgery. Patient is a very poor historian with minimal social support. Patient reports heartburn and chronic back/knee pain. Patient reports increased urinary frequency but denies dysuria or burning sensation. Patient denies fevers, chills, cp, sob, n/v, constipation or diarrhea, headache, abdominal pain. Objective - Vital Signs/Intake and Output Vital Signs (last 24 hours): Temp Pulse Resp BP Pulse Ox 98.4 F 52 L 20 150/81 98 12/09/17 06:00 12/09/17 06:00 12/09/17 06:00 12/09/17 15:26 12/09/17 10:37 Intake and Output: 12/09/17 12/09/17 06:59 18:59 Intake Total 1920 Output Total 6 Balance 1914 - Medications Medications: Current Medications Al Hydrox/Mg Hydrox/Simethicone (Maalox Plus 30 Ml) 30 ml PO DAILY PRN PRN Reason: Indigestion / Heartburn Aspirin (Ecotrin) 81 mg PO DAILY [facility] Last Admin: 12/09/17 09:49 Dose: 81 mg Atorvastatin Calcium (Lipitor) 10 mg PO HS [facility] Last Admin: 12/08/17 21:55 Dose: 10 mg Cefpodoxime Proxetil (Vantin) 200 mg PO Q12 ZEV Docusate Sodium (Colace) 100 mg PO TID [facility] Last Admin: 12/09/17 13:33 Dose: 100 mg Furosemide (Lasix) 40 mg PO DAILY [facility] Last Admin: 12/09/17 09:49 Dose: 40 mg Gabapentin (Neurontin) 100 mg PO HS [facility]; Protocol Last Admin: 12/08/17 21:55 Dose: 100 mg Heparin Sodium (Porcine) (Heparin) 5,000 units SC Q8 [facility]; Protocol Last Admin: 12/09/17 13:33 Dose: 5,000 units Hydralazine HCl (Apresoline) 50 mg PO TID [facility] Last Admin: 12/09/17 13:33 Dose: 50 mg Levothyroxine Sodium (Synthroid) 400 mcg PO DAILY@0630 [facility] Last Admin: 12/07/17 06:28 Dose: 400 mcg Lisinopril (Zestril) 20 mg PO DAILY [facility] Last Admin: 12/09/17 09:49 Dose: 20 mg Oxycodone/Acetaminophen (Percocet 5/325 Mg Tab) 1 tab PO Q6H PRN PRN Reason: Pain, severe (8-10) Stop: 12/09/17 23:09 Pantoprazole Sodium (Protonix Ec Tab) 40 mg PO 0600 [facility] Last Admin: 12/09/17 06:16 Dose: 40 mg - Labs Labs: 12/09/17 06:25 12/09/17 06:25 - Constitutional Appears: Non-toxic, No Acute Distress - Head Exam Head Exam: NORMAL INSPECTION, NORMOCEPHALIC - Eye Exam Eye Exam: EOMI, Normal appearance. absent: Nystagmus, Scleral icterus - ENT Exam ENT Exam: Mucous Membranes Moist - Respiratory Exam Respiratory Exam: Clear to Ausculation Bilateral, NORMAL BREATHING PATTERN. absent: Rales, Rhonchi, Wheezes - Cardiovascular Exam Cardiovascular Exam: REGULAR RHYTHM, +S1, +S2. absent: Tachycardia - GI/Abdominal Exam GI & Abdominal Exam: Soft, Normal Bowel Sounds. absent: Distended, Firm, Guar ding, Tenderness - Extremities Exam Extremities Exam: absent: Calf Tenderness, Pedal Edema Additional comments: knee replacement surgery scar b/l - Neurological Exam Neurological Exam: Alert, Awake, Oriented x3 - Psychiatric Exam Psychiatric exam: Normal Affect, Normal Mood - Skin Skin Exam: Intact, Normal Color Assessment and Plan - Assessment and Plan (Free Text) Assessment: Patient is a 72 year old Romanian female with a past medical history of HTN, OA, bradycardia, thyroid cancer s/p thyroidectomy/parathyroidectomy, GERD who was admitted for evaluation and treatment of reproducible chest pain and UTI. Plan: Chest Pain- r/o ACS EKG normal Trop x 3 negative Cardiac cath done [address] Bejarano- cardiology- non cardiac in origin UTI UA showed leuk esterase and nitrate +, WBC 15 Vantin 200mg po q12 zev (started 12-10) Cx positive for E coli Hx of Thyroid Cancer s/p Thyroidectomy/Parathyroidectomy Endocrinology consulted- Dr. Waite- TPO and TG pending; repeat TSH with free and total T4 TSH low < 0.02 Held home synthroid- high dose- unknown doctor who prescribes as patient poor historian Requires social work assistance as patient lives alone and non ambulatory Hx of HTN Hydralazine 50mg po tid Lasix 40mg po daily Lisinopril 20mg po daily GERD Protonix 40 mg po Maalox 30 mL PO daily Normocytic Anemia hemodynamically stable Chronic pain Percocet Gabapentin Gait Instability Physical therapy- home w/ services- unlikely as patient has no insurance PPx DVT ppx- Heparin 5000 SC Q8h GI ppx- Protonix 40 po Medical Management discussed with Dr. Belia Frost PGY-1 <Edison Celaya - Last Filed: 12/12/17 16:53> Objective - Vital Signs/Intake and Output Vital Signs (last 24 hours): Temp Pulse Resp BP Pulse Ox 97.8 F 72 16 136/86 97 12/11/17 14:00 12/11/17 14:00 12/11/17 14:00 12/11/17 14:00 12/11/17 14:00 - Labs Labs: 12/11/17 07:00 12/11/17 07:00 PT 11.0 SECONDS (9.4-12.5) 12/09/17 19:11 INR 0.97 12/09/17 19:11 APTT 29.4 Seconds (25.1-36.5) 12/09/17 19:11 Attending/Attestation - Attestation I have personally seen and examined this patient.: Yes I have fully participated in the care of the patient.: Yes I have reviewed all pertinent clinical information, including history, physical exam and plan: Yes Notes (Text): 12/12/17 16:53 Medical record note made by the resident after discussion with my direction and input after the patient was personally seen and examined by me. I have reviewed the chart and agree that the record accurately reflects by personal performance of the history, physical exam, data review, and medical decision-making, in the course for the patient. I have also personally directed the plan of care.
--- NOTE | 2017-12-09 17:00 | PN ---
DATE: 12/09/2017 FOLLOWUP SUBJECTIVE: The patient denies any chest pain. She complains of bilateral knee pain. PHYSICAL EXAMINATION: VITAL SIGNS: Blood pressure 150/81, heart rate 52, temperature 98.4, respirations 19. HEENT: Normocephalic. CHEST: Clear. HEART: S1 and S2 regular. EXTREMITIES: Nonpitting edema. LABORATORY DATA: Today's SMA-7 is within normal limits except for BUN of 31. TSH level is less than 0.02. Three sets of troponins are negative. Hemoglobin and hematocrit 10.8 and 34. White count and platelet count are within normal limit. EKG, sinus bradycardia with sinus arrhythmia, otherwise normal, heart rate 57. Chest x-ray was unremarkable except for borderline cardiomegaly. Echocardiography study revealed normal ejection fraction and estimated right ventricular systolic pressure of 39 mmHg. ASSESSMENT: 1. Chest pain, myocardial infarction is rule out. 2. History of osteoarthritis. 3. Hypothyroidism. 4. Hypertension and hyperlipidemia. RECOMMENDATIONS: Continue hydralazine 50 mg t.i.d., aspirin 81 mg once a day, subcutaneous heparin 500 unit every 8 hours, Lasix 40 mg p.o. once a day, Lipitor at 10 mg once a day, Neurontin 100 mg at bedtime, Synthroid 400 mcg daily, Zestril 20 mg once a day. The patient is being followed by Dr. Momin, the infusion pharmacist. We will obtain serum D-dimer, PT, PTT. Dave Cma MD
[2017-12-09 19:24] LABS: INR 0.97; PARTIAL THROMBOPLASTIN TIME 29.4 Seconds (25.1-36.5)
[2017-12-09 22:21] LABS: THYROGLOBULIN 0.3 ng/mL (2.8-40.9)
[2017-12-10] MEDS: Pantoprazole 40 mg EC Tab PO SCH (05:02)
[2017-12-10 07:20] LABS: BASO # 0.04 K/mm3 (0.0-2.0); BASO % 0.5 % (0.0-3.0); EOS # 0.2 (0.0-0.7); EOS % 3.1 % (1.5-5.0); GRAN # 3.65 (1.4-6.5); GRAN % 49.8 % (50.0-68.0); HEMOGLOBIN 10.6 g/dL (12.0-16.0); LYMPH # 2.7 (1.2-3.4); LYMPH % 37.3 % (22.0-35.0); MEAN CELL VOLUME 78.9 fl (80.0-105.0); MEAN CORPUSCULAR HEMOGLOBIN 24.9 pg (25.0-35.0); MEAN CORPUSCULAR HGB CONC 31.5 g/dl (31.0-37.0); MEAN PLATELET VOLUME 10.7 fl (7.0-11.0); MONO # 0.7 (0.1-0.6); MONO % 9.3 % (1.0-6.0); RBC 4.26 10^6/uL (3.5-6.1); RED CELL DISTRIBUTION WIDTH 14.6 % (11.5-14.5); WHITE BLOOD COUNT 7.3 10^3/ul (4.5-11.0)
[2017-12-10 07:36] LABS: ALB/GLOB RATIO 1.1 (1.1-1.8); ALBUMIN 3.8 g/dL (3.0-4.8); ALT/SGPT 18 U/L (7-56); AST/SGOT 32 U/L (14-36); BLOOD UREA NITROGEN 25 mg/dL (7-21); CALCIUM 8.7 mg/dL (8.4-10.5); GFR NON-AFRICAN AMERICAN > 60
[2017-12-10] MEDS: Cefpodoxime (Vantin) 200 mg Tab PO SCH ×2 (09:35→21:40)
--- NOTE | 2017-12-10 13:57 | PN ---
DATE: 12/10/2017 ENDO FOLLOWUP NOTE SUBJECTIVE: This is a 72-year-old female with recent overt hyperthyroxinemia from possible over replacement of her levothyroxine medication as noted and is now being followed closely for metabolic management. Her initial cardiovascular exam was normal except for the bounding and rapid heart rate as expected from the intercurrent metabolic problem as mentioned. Her latest chemistry showed a BUN of 25, sodium 139, potassium 3.8, chloride 100, CO2 of 31, glucose 103 and creatinine 0.8. Her latest thyroid study showed a T4 of 12.2 with a TSH of less than 0.02 and a thyroglobulin level of 0.3 with a free T4 of 1.62. ASSESSMENT: This is a 72-year-old female with overt hyperthyroxinemia, most likely related to over replacement of her levothyroxine medication, which is being held at this time. It takes close to a week for full therapeutic washout of a higher dosing regimen for her thyroid condition. PLAN OF MANAGEMENT: We will repeat the thyroid studies prior to her eventual discharge and this will guide us to her actual levothyroxine dose requirements as noted thereof. We will obtain serial chemistries and supplement accordingly as needed. We will follow. Jenny Waite MD
--- NOTE | 2017-12-10 16:20 | CP.PCM.PN ---
<Brandi Frost - Last Filed: 12/10/17 16:12> Subjective - Date & Time of Evaluation Date of Evaluation: 12/10/17 Time of Evaluation: 11:30 - Subjective Subjective: PGY-1 Medicine Progress Note for Dr. Celaya's service Patient seen and examined at bedside. Patient offers no acute complaints. Patient denies fevers, chills, chest pain, sob, n/v, constipation or diarrhea, dysuria. An extensive conversation was had with patient for discharge planning as patient is a non micronesian speaker with poor familial support. Patient was instructed that she would require an ambulatory assisting device prior to go home. Patient's brother in law was at bedside and was explained in detail the process required prior to discharge. Patient's brother in law stated that he would purchase the wheel chair and/or rollator. Patient was instructed that she would require further followup with Dr. Ca for continued management of her thyroid condition. Objective - Vital Signs/Intake and Output Vital Signs (last 24 hours): Temp Pulse Resp BP Pulse Ox 97.8 F 65 18 112/64 98 12/10/17 06:00 12/10/17 06:00 12/10/17 06:00 12/10/17 13:17 12/10/17 11:12 - Medications Medications: Current Medications Al Hydrox/Mg Hydrox/Simethicone (Maalox Plus 30 Ml) 30 ml PO DAILY PRN PRN Reason: Indigestion / Heartburn Aspirin (Ecotrin) 81 mg PO DAILY [facility] Last Admin: 12/10/17 09:36 Dose: 81 mg Atorvastatin Calcium (Lipitor) 10 mg PO HS [facility] Last Admin: 12/09/17 21:52 Dose: 10 mg Cefpodoxime Proxetil (Vantin) 200 mg PO Q12 [facility] Last Admin: 12/10/17 09:35 Dose: 200 mg Docusate Sodium (Colace) 100 mg PO TID [facility] Last Admin: 12/10/17 13:16 Dose: 100 mg Furosemide (Lasix) 40 mg PO DAILY [facility] Last Admin: 12/10/17 09:37 Dose: 40 mg Gabapentin (Neurontin) 100 mg PO HS [facility]; Protocol Last Admin: 12/09/17 21:53 Dose: 100 mg Heparin Sodium (Porcine) (Heparin) 5,000 units SC Q8 [facility]; Protocol Last Admin: 12/10/17 13:16 Dose: 5,000 units Hydralazine HCl (Apresoline) 50 mg PO TID [facility] Last Admin: 12/10/17 13:17 Dose: 50 mg Levothyroxine Sodium (Synthroid) 400 mcg PO DAILY@0630 [facility] Last Admin: 12/07/17 06:28 Dose: 400 mcg Lisinopril (Zestril) 20 mg PO DAILY [facility] Last Admin: 12/10/17 09:35 Dose: 20 mg Pantoprazole Sodium (Protonix Ec Tab) 40 mg PO 0600 [facility] Last Admin: 12/10/17 05:02 Dose: 40 mg - Labs Labs: 12/10/17 06:45 12/10/17 06:45 PT 11.0 SECONDS (9.4-12.5) 12/09/17 19:11 INR 0.97 12/09/17 19:11 APTT 29.4 Seconds (25.1-36.5) 12/09/17 19:11 - Additional Findings Additional findings: - Constitutional Appears: Non-toxic, No Acute Distress - Head Exam Head Exam: NORMAL INSPECTION, NORMOCEPHALIC - Eye Exam Eye Exam: EOMI, Normal appearance. absent: Nystagmus, Scleral icterus - ENT Exam ENT Exam: Mucous Membranes Moist - Respiratory Exam Respiratory Exam: Clear to Ausculation Bilateral, NORMAL BREATHING PATTERN. absent: Rales, Rhonchi, Wheezes - Cardiovascular Exam Cardiovascular Exam: REGULAR RHYTHM, +S1, +S2. absent: Tachycardia - GI/Abdominal Exam GI & Abdominal Exam: Soft, Normal Bowel Sounds. absent: Distended, Firm, Guarding, Tenderness - Extremities Exam Extremities Exam: absent: Calf Tenderness, Pedal Edema Additional comments: knee replacement surgery scar b/l - Neurological Exam Neurological Exam: Alert, Awake, Oriented x3 - Psychiatric Exam Psychiatric exam: Normal Affect, Normal Mood - Skin Skin Exam: Intact, Normal Color Assessment and Plan - Assessment and Plan (Free Text) Assessment: Patient is a 72 year old Brazilian female with a past medical history of HTN, OA, bradycardia, thyroid cancer s/p thyroidectomy/parathyroidectomy, GERD who was admitted for evaluation and treatment of reproducible chest pain and UTI. Plan: Chest Pain- r/o ACS EKG normal Trop x 3 negative Cardiac cath done [address] Bejarano- cardiology- non cardiac in origin UTI UA showed leuk esterase and nitrate +, WBC 15 Vantin 200mg po q12 zev (started 10-16) Cx positive for E coli Clinically Asymptomatic Hx of Thyroid Cancer s/p Thyroidectomy/Parathyroidectomy Endocrinology consulted- Dr. Waite- -repeat TSH with free and total T4; will recommend dosage prior to d/c TSH low < 0.02; TG 0.3; Thyroxine 12.2 Held home synthroid- high dose- unknown doctor who prescribes as patient poor historian Requires social work assistance as patient lives alone and non ambulatory Hx of HTN Hydralazine 50mg po tid Lasix 40mg po daily Lisinopril 20mg po daily GERD Protonix 40 mg po Maalox 30 mL PO daily Normocytic Anemia hemodynamically stable Chronic pain Percocet Gabapentin Gait Instability Physical therapy- home w/ services- unlikely as patient has no insurance PPx DVT ppx- Heparin 5000 SC Q8h GI ppx- Protonix 40 po Medical Management discussed with Dr. Belia Frost PGY-1 <Edison Celaya - Last Filed: 12/12/17 16:53> Objective - Vital Signs/Intake and Output Vital Signs (last 24 hours): Temp Pulse Resp BP Pulse Ox 97.8 F 72 16 136/86 97 12/11/17 14:00 12/11/17 14:00 12/11/17 14:00 12/11/17 14:00 12/11/17 14:00 - Labs Labs: 12/11/17 07:00 12/11/17 07:00 PT 11.0 SECONDS (9.4-12.5) 12/09/17 19:11 INR 0.97 12/09/17 19:11 APTT 29.4 Seconds (25.1-36.5) 12/09/17 19:11 Attending/Attestation - Attestation I have personally seen and examined this patient.: Yes I have fully participated in the care of the patient.: Yes I have reviewed all pertinent clinical information, including history, physical exam and plan: Yes Notes (Text): 12/12/17 16:53 Medical record note made by the resident after discussion with my direction and input after the patient was personally seen and examined by me. I have reviewed the chart and agree that the record accurately reflects by personal performance of the history, physical exam, data review, and medical decision-making, in the course for the patient. I have also personally directed the plan of care.
[2017-12-11] MEDS: Pantoprazole 40 mg EC Tab PO SCH (06:29)
[2017-12-11 08:24] LABS: FREE T4 1.11 ng/dL (0.78-2.19); T4 9.4 ug/dL (5.5-11.0)
[2017-12-11 08:49] LABS: BASO # 0.05 K/mm3 (0.0-2.0); BASO % 0.7 % (0.0-3.0); EOS # 0.3 (0.0-0.7); EOS % 3.3 % (1.5-5.0); GRAN # 3.31 (1.4-6.5); HEMOGLOBIN 10.4 g/dL (12.0-16.0); LYMPH # 3.1 (1.2-3.4); LYMPH % 40.8 % (22.0-35.0); MEAN CELL VOLUME 79.4 fl (80.0-105.0); MEAN CORPUSCULAR HEMOGLOBIN 24.6 pg (25.0-35.0); MEAN PLATELET VOLUME 11.3 fl (7.0-11.0); MONO # 0.8 (0.1-0.6); MONO % 11.2 % (1.0-6.0); RBC 4.22 10^6/uL (3.5-6.1); RED CELL DISTRIBUTION WIDTH 14.9 % (11.5-14.5); WHITE BLOOD COUNT 7.5 10^3/ul (4.5-11.0)
[2017-12-11 08:56] LABS: ALB/GLOB RATIO 1.2 (1.1-1.8); ALBUMIN 3.7 g/dL (3.0-4.8); ALT/SGPT 28 U/L (7-56); AST/SGOT 29 U/L (14-36); BLOOD UREA NITROGEN 27 mg/dL (7-21); CALCIUM 8.4 mg/dL (8.4-10.5); GFR NON-AFRICAN AMERICAN > 60
[2017-12-11 09:57] VITALS: TEMP 97.8
[2017-12-11] MEDS: Cefpodoxime (Vantin) 200 mg Tab PO SCH (10:47)
--- NOTE | 2017-12-11 12:19 | PN ---
DATE: 12/11/2017 LOCATION: Room 571. HISTORY: This is a 72-year-old female with significant history of surgical hypothyroidism, currently off her levothyroxine replacement therapy because of persistent TSH suppression as noted thereof. Her repeat chemistries today showed a BUN of 27, sodium 139, potassium 4.4, chloride 102, CO2 of 28, glucose 103 and creatinine 0.7. Her repeat thyroid studies have improved accordingly with a total T4 down from 12.2 to 9.4 mcg/dL today as noted. Her TSH remains suppressed at 0.06 milliunits/mL with a free T4 now which is normal of 1.11. Would highly recommend a much lower dosing regimen for the levothyroxine down to 200 mcg once daily in the morning as ordered. We will obtain serial chemistries and supplement accordingly as needed. We will follow. Jenny Waite MD
[2017-12-11 14:00] VITALS: BP 136/86; PULSE 72
[2017-12-11 15:42] VITALS: RESP 16; O2SAT 97
--- NOTE | 2017-12-11 16:17 | CP.PCM.DIS ---
<Brandi Frost - Last Filed: 12/11/17 16:04> Provider - Provider Date of Admission: 12/07/17 14:16 Attending physician: Lien Lizarraga MD Primary care physician: Lakshmi Figueroa MD Time Spent in preparation of Discharge (in minutes): 45 Hospital Course - Lab Results Lab Results: Micro Results 12/06/17 18:58 Urine,Clean Catch Urine Culture - Final Escherichia Coli Most Recent Lab Values WBC 7.5 10^3/ul (4.5-11.0) 12/11/17 07:00 RBC 4.22 10^6/uL (3.5-6.1) 12/11/17 07:00 Hgb 10.4 g/dL (12.0-16.0) L 12/11/17 07:00 Hct 33.5 % (36.0-48.0) L 12/11/17 07:00 MCV 79.4 fl (80.0-105.0) L 12/11/17 07:00 MCH 24.6 pg (25.0-35.0) L 12/11/17 07:00 MCHC 31.0 g/dl (31.0-37.0) 12/11/17 07:00 RDW 14.9 % (11.5-14.5) H 12/11/17 07:00 Plt Count 337 10^3/uL (120.0-450.0) 12/11/17 07:00 MPV 11.3 fl (7.0-11.0) H 12/11/17 07:00 Gran % 44.0 % (50.0-68.0) L 12/11/17 07:00 Lymph % (Auto) 40.8 % (22.0-35.0) H 12/11/17 07:00 Cooper % (Auto) 11.2 % (1.0-6.0) H 12/11/17 07:00 Eos % (Auto) 3.3 % (1.5-5.0) 12/11/17 07:00 Baso % (Auto) 0.7 % (0.0-3.0) 12/11/17 07:00 Gran # 3.31 (1.4-6.5) 12/11/17 07:00 Lymph # (Auto) 3.1 (1.2-3.4) 12/11/17 07:00 Cooper # (Auto) 0.8 (0.1-0.6) H 12/11/17 07:00 Eos # (Auto) 0.3 (0.0-0.7) 12/11/17 07:00 Baso # (Auto) 0.05 K/mm3 (0.0-2.0) 12/11/17 07:00 PT 11.0 SECONDS (9.4-12.5) 12/09/17 19:11 INR 0.97 12/09/17 19:11 APTT 29.4 Seconds (25.1-36.5) 12/09/17 19:11 D-Dimer, Quantitative 209 ng/mlDDU (0-243) 12/09/17 19:11 Sodium 139 mmol/L (132-148) 12/11/17 07:00 Potassium 4.4 mmol/L (3.6-5.0) 12/11/17 07:00 Chloride 102 mmol/L (98-107) 12/11/17 07:00 Carbon Dioxide 28 mmol/L (21-33) 12/11/17 07:00 Anion Gap 14 (10-20) 12/11/17 07:00 BUN 27 mg/dL (7-21) H 12/11/17 07:00 Creatinine 0.7 mg/dl (0.7-1.2) 12/11/17 07:00 Est GFR ( Amer) > 60 12/11/17 07:00 Est GFR (Non-Af Amer) > 60 12/11/17 07:00 Random Glucose 103 mg/dL (70-110) 12/11/17 07:00 Hemoglobin A1c 6.1 % (4.2-6.5) 12/07/17 06:00 Calcium 8.4 mg/dL (8.4-10.5) 12/11/17 07:00 Magnesium 2.2 mg/dL (1.7-2.2) 12/07/17 06:00 Total Bilirubin 0.3 mg/dL (0.2-1.3) 12/11/17 07:00 AST 29 U/L (14-36) 12/11/17 07:00 ALT 28 U/L (7-56) 12/11/17 07:00 Alkaline Phosphatase 69 U/L (38-126) 12/11/17 07:00 Lactate Dehydrogenase 428 U/L (333-699) 12/07/17 16:07 Total Creatine Kinase 57 U/L (35-230) 12/07/17 16:07 Troponin I < 0.01 ng/mL 12/07/17 16:07 NT-Pro-B Natriuret Pep 268 pg/mL (0-450) 12/06/17 17:25 Total Protein 6.8 g/dL (5.8-8.3) 12/11/17 07:00 Albumin 3.7 g/dL (3.0-4.8) 12/11/17 07:00 Globulin 3.1 gm/dL 12/11/17 07:00 Albumin/Globulin Ratio 1.2 (1.1-1.8) 12/11/17 07:00 Triglycerides 125 mg/dL (35-160) 12/07/17 06:00 Cholesterol 184 mg/dL (130-200) 12/07/17 06:00 LDL Cholesterol Direct 89 mg/dL (0-129) 12/07/17 06:00 HDL Cholesterol 47 mg/dL (29-60) 12/07/17 06:00 Free T4 1.11 ng/dL (0.78-2.19) 12/11/17 07:30 Thyroxine (T4) 9.4 ug/dL (5.5-11.0) 12/11/17 07:30 Thyroglobulin, Quant 0.3 ng/mL (2.8-40.9) L 12/08/17 06:00 TSH 3rd Generation 0.06 mIU/mL (0.46-4.68) L 12/11/17 07:30 Urine Color Yellow (YELLOW) 12/06/17 17:15 Urine Appearance Clear (CLEAR) 12/06/17 17:15 Urine pH 5.5 (4.7-8.0) 12/06/17 17:15 Ur Specific Point 1.020 (1.005-1.035) 12/06/17 17:15 Urine Protein Negative mg/dL (<30 mg/dL) 12/06/17 17:15 Urine Glucose (UA) Negative mg/dL (NEGATIVE) 12/06/17 17: Urine Ketones Negative mg/dL (NEGATIVE) 12/06/17 17:15 Urine Blood Negative (NEGATIVE) 12/06/17 17:15 Urine Nitrate Positive (NEGATIVE) H 12/06/17 17:15 Urine Bilirubin Negative (NEGATIVE) 12/06/17 17:15 Urine Urobilinogen 0.2 E.U./dL (<1 E.U./dL) 12/06/17 17:15 Ur Leukocyte Esterase Small Abram/uL (NEGATIVE) H 12/06/17 17:15 Urine RBC TEST NOT PERFORMED 12/06/17 17:15 Urine WBC 10 - 15 /hpf (0-6) 12/06/17 17:15 Ur Epithelial Cells 10 - 12 /hpf (0-5) 12/06/17 17:15 Thyroperoxidase Ab <1 IU/mL (<9) 12/08/17 06:00 Thyroglobulin Antibody <1 IU/mL (< OR = 1) 12/08/17 06:00 - Hospital Course Hospital Course: Upon admission Ms. Keyes is a 72 [place] F with PMHx of HTN, OA, bradycardia, thyroid cancer s/p thyroidectomy/parathyroidectomy, GERD presenting with reproducible, left sided chest discomfort. Patient states chest discomfort began a year ago, but has worsened over past few days. Patient was IN [facility], and felt chest pain, and was recommended to be evaluated in ED. Patient reports a poking pain in left side of chest that does not radiate to neck, jaw or shoulder. History obtained from audiovisual technician and two neighbors who were at bedside - patient acknowledged them as friends and free to discuss medical care with. Patient states she has had chest pain for a while and currently rates it 3/10. The patient did not take anything to alleviate the pain. The patient denies any recent trauma to the right arm. The chest pain gets worse when palpated, it is localized to the left upper chest area and does not get worse with exertion. Recent echo 3 months ago at [facility], but family unaware of results other than it was "good." Patient denies stress test but reports a catheterization in 10/[address] Garcia which showed normal coronaries. Patient admits to headache, urinary urgency and dysuria, reflux symptoms although denies morning cough, sour taste in mouth but does admit to discomfort after lying down after meals. Patient denies any shortness of breath, dizziness, fever, chills, nausea, vomiting, abdominal pain, recent infections, recent travel, and extremity tingling. Hospital Course 73 year old female admitted for reproducible chest pain and UTI. EKG, CXR, and serial tropnins obtained to r/o ACS. Patient given Nitroglycerin in the ED. EKG resulted NSR at [address] elevations or T wave changes. CXR resulted no active disease. Serial troponins WNL. Echo resulted normal chamber size, EF 55- 60%, trace MR/TR/AR/PI, RVSP 39. Cardiology was consulted and recommended no further cardiac work-up since patients cardiac cath was less than 1 year ago, symptoms not of cardiac origin. Dr. Cam, cardiology, recommended obtaining D-dimer, PT/PTT/INR, all which resulted WNL. UA positive for leuk esterase, nitrate, WBC. Given Nitrofurantoin in the ED, and started on Rocephin 12/07- 12/09/2017. Urine culture resulted E. Coli and patient was started on Vantin (12/10/2017). In addition, TSH resulted low (0.02) and T4 was elevated (12.2). Synthroid was held and endocrinology was consulted. Thyroid peroxidase and thyroglobulin obtained and resulted negative. Yard Worker, Dr. Waite, recommended to resume levothyroxine if total T4 levels go below 10, resume lower dose of levothyroxine as indicated to optimize metabolic control, takes 5-7 days for therapeutic washout of medications before reassume and renew levothyroxine; repeat thyroid studies prior to discharge to help determine levothyroxine dose. Found to have normocytic anemia, with no signs or symptoms of active bleeding. Hemodynamically stable, and labs monitored. HgbA1C resulted 6.1 and lipid panel WNL. Patient was continued on all other home medications for HTN, GERD, and chronic pain. Patient evaluated by PT. Initially, patient refused to ambulate with PT using a walker, requesting a wheelchair. Discussed, in detail, the benefit of walker versus wheelchair in relation to patients functional capacity, and she agreed to ambulate with PT using rollater. PT re-evaluated patient during which time she was able to ambulate using rollator. Pt cleared patient for discharge home and with a rollator. Case management and social work is in the process of requesting/approval for home services since pt is uninsured. Extensive conversations were had with patient and daughter that patient will need close followup either through our clinic or her doctor Eugene Ca. Patient's daughter understood the conversation and stated she would attempt to call the tag stringer to setup earlier appointment but is aware that patient can followup with Dr. Jimenez. Discharge plan Patient is stable for discharge to home as per Dr. Celaya. She was counseled to return to the emergency department if symptoms return or worsen. Patient is to follow up with tag stringer Dr. Ca within 3-5 days of discharge. Patient can also followup with Dr. Jimenez if she is unable to make appointment with her tag stringer. Patient is to medications as reconciled and instructed in discharge instructions. Counseled on use of rollater to decrease risk of fall. Patient's neighbors and rastafari members stated that they would buy her a wheelchair when she is discharged. Home services pending at this time, case management/social work will inform patient of any changes in status of approval. Reviewed all medications with patient, and she understands instructions. Patient understands and agrees with discharge plan. All instructions were relayed to patient using a audiovisual technician. Disclaimer: Written above is a synopsis of patient's current hospital admission. For full report refer to EMR. Discharge Exam - Head Exam Head Exam: NORMAL INSPECTION, NORMOCEPHALIC - Eye Exam Eye Exam: EOMI, Normal appearance. absent: Nystagmus, Scleral icterus - ENT Exam ENT Exam: Mucous Membranes Moist - Respiratory Exam Respiratory Exam: absent: Rales, Rhonchi, Wheezes, Respiratory Distress - Cardiovascular Exam Cardiovascular Exam: REGULAR RHYTHM, +S1, +S2. absent: Bradycardia, Tachycardia - GI/Abdominal Exam GI & Abdominal Exam: Normal Bowel Sounds, Soft. absent: Distended, Firm, Guarding, Tenderness - Neurological Exam Neurological exam: Alert, Oriented x3 - Psychiatric Exam Psychiatric exam: Normal Affect, Normal Mood - Skin Skin Exam: Intact, Normal Color Discharge Plan - Discharge Medications Prescriptions: RX: Aspirin [Ecotrin] 81 mg PO DAILY #30 tabec RX: Cefpodoxime [Vantin] 200 mg PO Q12 #2 tab RX: Docusate [Colace] 100 mg PO TID #52 cap RX: Furosemide [Lasix] 40 mg PO DAILY #14 tab RX: Gabapentin [Neurontin] 100 mg PO HS #14 cap RX: hydrALAZINE [Apresoline] 50 mg PO TID #52 tab RX: Levothyroxine [Synthroid] 200 mcg PO DAILY@0630 #14 tab RX: Lisinopril [Zestril] 20 mg PO DAILY #14 tab RX: Simvastatin 10 mg PO HS #14 tablet - Follow Up Plan Condition: STABLE Disposition: HOME/ ROUTINE Instructions: Chest Pain (DC), Chest Pain (GEN), Urinary Tract Infection in Women (DC), Dysuria (GEN), Hypertension (DC), Hypertension (GEN) Additional Instructions: 1. Patient is stable for discharge to home as per Dr. Celaya. Patient will require wheelchair and/or rollator for ambulation assistance as per PT. Patient has no insurance so rollator was provided but family stated that would buy wheelchair. 2. Patient is educated to followup with her tag stringer, Dr. Eugene Ca. Patient was educated she can followup in clinic downstairs, Dr. Jimenez, as well information was provided. Patient is a poor historian with no social support at home other than neighbors who visit at their discretion. Patient's tag stringer was attempted to be contacted however no numbers were able to listed. Patient states she has information for doctor at home however does not have information at hospital. Patient's daughter was contacted about setting up appointment with Dr. Ca as patient states that her daughter manages her appointment. Patient's daughter stated that she would attempt to contact to set up appointment. Daughter was made aware that if unable to patient can followup with Dr. Jimenez in clinic downstairs. 3. Patient prescribed the medications she was taking in the hospital to go home with for two weeks. Patient will start taking the following medications as they were adjusted or started in hospital: Synthroid 200mcg once by mouth daily and Vantin 200mg twice by mouth only tomorrow. 4. Patient is educated to return to hospital if symptoms worsen or recur. Patient will be explained on how to take medications in detail as it is unsure if patient understands home medications. 5. Patient understands the plan as above and agrees. Referrals: [facility] [Provider Group] Lakshmi Figueroa MD [Primary Care Provider] - <Edison Celaya - Last Filed: 12/12/17 16:52> Provider - Provider Date of Admission: 12/07/17 14:16 Attending physician: Lien Lizarraga MD Primary care physician: Lakshmi Figueroa MD Hospital Course - Lab Results Lab Results: Micro Results 12/06/17 18:58 Urine,Clean Catch Urine Culture - Final Escherichia Coli Most Recent Lab Values WBC 7.5 10^3/ul (4.5-11.0) 12/11/17 07:00 RBC 4.22 10^6/uL (3.5-6.1) 12/11/17 07:00 Hgb 10.4 g/dL (12.0-16.0) L 12/11/17 07:00 Hct 33.5 % (36.0-48.0) L 12/11/17 07:00 MCV 79.4 fl (80.0-105.0) L 12/11/17 07:00 MCH 24.6 pg (25.0-35.0) L 12/11/17 07:00 MCHC 31.0 g/dl (31.0-37.0) 12/11/17 07:00 RDW 14.9 % (11.5-14.5) H 12/11/17 07:00 Plt Count 337 10^3/uL (120.0-450.0) 12/11/17 07:00 MPV 11.3 fl (7.0-11.0) H 12/11/17 07:00 Gran % 44.0 % (50.0-68.0) L 12/11/17 07:00 Lymph % (Auto) 40.8 % (22.0-35.0) H 12/11/17 07:00 Cooper % (Auto) 11.2 % (1.0-6.0) H 12/11/17 07:00 Eos % (Auto) 3.3 % (1.5-5.0) 12/11/17 07:00 Baso % (Auto) 0.7 % (0.0-3.0) 12/11/17 07:00 Gran # 3.31 (1.4-6.5) 12/11/17 07:00 Lymph # (Auto) 3.1 (1.2-3.4) 12/11/17 07:00 Cooper # (Auto) 0.8 (0.1-0.6) H 12/11/17 07:00 Eos # (Auto) 0.3 (0.0-0.7) 12/11/17 07:00 Baso # (Auto) 0.05 K/mm3 (0.0-2.0) 12/11/17 07:00 PT 11.0 SECONDS (9.4-12.5) 12/09/17 19:11 INR 0.97 12/09/17 19:11 APTT 29.4 Seconds (25.1-36.5) 12/09/17 19:11 D-Dimer, Quantitative 209 ng/mlDDU (0-243) 12/09/17 19:11 Sodium 139 mmol/L (132-148) 12/11/17 07:00 Potassium 4.4 mmol/L (3.6-5.0) 12/11/17 07:00 Chloride 102 mmol/L (98-107) 12/11/17 07:00 Carbon Dioxide 28 mmol/L (21-33) 12/11/17 07:00 Anion Gap 14 (10-20) 12/11/17 07:00 BUN 27 mg/dL (7-21) H 12/11/17 07:00 Creatinine 0.7 mg/dl (0.7-1.2) 12/11/17 07:00 Est GFR ( Amer) > 60 12/11/17 07:00 Est GFR (Non-Af Amer) > 60 12/11/17 07:00 Random Glucose 103 mg/dL (70-110) 12/11/17 07:00 Hemoglobin A1c 6.1 % (4.2-6.5) 12/07/17 06:00 Calcium 8.4 mg/dL (8.4-10.5) 12/11/17 07:00 Magnesium 2.2 mg/dL (1.7-2.2) 12/07/17 06:00 Total Bilirubin 0.3 mg/dL (0.2-1.3) 12/11/17 07:00 AST 29 U/L (14-36) 12/11/17 07:00 ALT 28 U/L (7-56) 12/11/17 07:00 Alkaline Phosphatase 69 U/L (38-126) 12/11/17 07:00 Lactate Dehydrogenase 428 U/L (333-699) 12/07/17 16:07 Total Creatine Kinase 57 U/L (35-230) 12/07/17 16:07 Troponin I < 0.01 ng/mL 12/07/17 16:07 NT-Pro-B Natriuret Pep 268 pg/mL (0-450) 12/06/17 17:25 Total Protein 6.8 g/dL (5.8-8.3) 12/11/17 07:00 Albumin 3.7 g/dL (3.0-4.8) 12/11/17 07:00 Globulin 3.1 gm/dL 12/11/17 07:00 Albumin/Globulin Ratio 1.2 (1.1-1.8) 12/11/17 07:00 Triglycerides 125 mg/dL (35-160) 12/07/17 06:00 Cholesterol 184 mg/dL (130-200) 12/07/17 06:00 LDL Cholesterol Direct 89 mg/dL (0-129) 12/07/17 06:00 HDL Cholesterol 47 mg/dL (29-60) 12/07/17 06:00 Free T4 1.11 ng/dL (0.78-2.19) 12/11/17 07:30 Thyroxine (T4) 9.4 ug/dL (5.5-11.0) 12/11/17 07:30 Thyroglobulin, Quant 0.3 ng/mL (2.8-40.9) L 12/08/17 06:00 TSH 3rd Generation 0.06 mIU/mL (0.46-4.68) L 12/11/17 07:30 Urine Color Yellow (YELLOW) 12/06/17 17:15 Urine Appearance Clear (CLEAR) 12/06/17 17:15 Urine pH 5.5 (4.7-8.0) 12/06/17 17:15 Ur Specific Point 1.020 (1.005-1.035) 12/06/17 17:15 Urine Protein Negative mg/dL (<30 mg/dL) 12/06/17 17:15 Urine Glucose (UA) Negative mg/dL (NEGATIVE) 12/06/17 17:15 Urine Ketones Negative mg/dL (NEGATIVE) 12/06/17 17:15 Urine Blood Negative (NEGATIVE) 12/06/17 17:15 Urine Nitrate Positive (NEGATIVE) H 12/06/17 17:15 Urine Bilirubin Negative (NEGATIVE) 12/06/17 17:15 Urine Urobilinogen 0.2 E.U./dL (<1 E.U./dL) 12/06/17 17:15 Ur Leukocyte Esterase Small Abram/uL (NEGATIVE) H 12/06/17 17:15 Urine RBC TEST NOT PERFORMED 12/06/17 17:15 Urine WBC 10 - 15 /hpf (0-6) 12/06/17 17:15 Ur Epithelial Cells 10 - 12 /hpf (0-5) 12/06/17 17:15 Thyroperoxidase Ab <1 IU/mL (<9) 12/08/17 06:00 Thyroglobulin Antibody <1 IU/mL (< OR = 1) 12/08/17 06:00 Attending/Attestation - Attestation I have personally seen and examined this patient.: Yes I have fully participated in the care of the patient.: Yes I have reviewed all pertinent clinical information, including history, physical exam and plan: Yes Notes (Text): 12/12/17 16:46 Medical record note made by the resident after discussion with my direction and input after the patient was personally seen and examined by me. I have reviewed the chart and agree that the record accurately reflects by personal performance of the history, physical exam, data review, and medical decision-making, in the course for the patient. I have also personally directed the plan of care. 72 year old female with PMH of hypertension, thyroid cancer s/p thyroidectomy who presented with complaint of chest pain. Serial cardiac enzymes x 3 were negative and ACS was ruled out. Cardiology evaluation is appreciated, no further inpatient work up is needed as per cardiology Continue with aspirin and statin. Ecoli UTI. Afebrile , on oral antibiotics. H/O Throid Cancer, SP Thyroidectomy TSH was low Endocrinology evaluation was appreciated.Levothyroxine dose is reduced to 200 mcg daily.Patient will follow up with her tag stringer and will need repeat TSH and T 4 level in 2 weeks.This was discussed in detail with her. Unsteady gait and chronic knee/back pain from osteoathritis.Patient was evaluated by Physical therapy .Walker was arranged prior to discharge.Her Family will get Wheel chair for her.She is high risk for fall.This was discussed in detail with her and family .Patient wants to be discharged home. Risk of readmission is high due to living situation at home. Prognosis is guarded. Management plan was discussed in detail with patient. Education was provided.
[2017-12-12] MEDS ORDERED: Levothyroxine 200 MCG TAB PO SCH (06:00)
== END 2017-12-11 17:50 | disposition home or self-care (01) | DRG 313 ==
LOC: ED 15:50 → ERH 19:58 → 2RNO 21:52 → OBSVTOIN 12-07 14:16 → 5RSO 12-08 19:24
PROVIDERS: ADMIT Hospitalist; ATTEND Internal Medicine
DX: R07.2 Precordial pain (principal); N39.0 Urinary tract infection, site not specified; B96.20 Unspecified Escherichia coli [E. coli] as the cause of diseases classified elsewhere; G89.29 Other chronic pain; E78.00 Pure hypercholesterolemia, unspecified; E89.0 Postprocedural hypothyroidism; I11.9 Hypertensive heart disease without heart failure; Z85.850 Personal history of malignant neoplasm of thyroid; K21.9 Gastro-esophageal reflux disease without esophagitis; D64.9 Anemia, unspecified; E66.9 Obesity, unspecified; Z68.38 Body mass index [BMI] 38.0-38.9, adult; E78.5 Hyperlipidemia, unspecified; Z96.653 Presence of artificial knee joint, bilateral; Z79.890 Hormone replacement therapy; Z98.1 Arthrodesis status